=== PATIENT | female | born 1970 | race Caucasian/White ===

== ENCOUNTER 2019-12-13 08:29 | Emergency (ER) | payer OTHER, SELFPAY ==
[2019-12-13 08:30] VITALS: BP 148/101; PULSE 75; RESP 18; TEMP 36.1; O2SAT 99; BMI 26.9
--- NOTE | 2019-12-13 08:36 | ED.VIS.GEN ---
History of Present Illness Chief Complaint: Other, Pain/Inj Past Medical History - Allergies and Home Meds Allergies/Adverse Reactions: Allergies Penicillins Allergy (Verified 12/13/19 08:32) Rash prochlorperazine edisylate [From Compazine] Allergy (Verified 12/13/19 08:32) Anaphylaxis prochlorperazine maleate [From Compazine] Allergy (Verified 12/13/19 08:32) Anaphylaxis Primary Care Physician: Shelby Saenz DO [Primary Care Provider] - Smoking Status: Never smoker Physical Exam Vital Signs/Narrative: Vital Signs Temp Pulse Resp BP Pulse Ox 12/13/19 08:30 97 F L 75 18 148/101 H 99 ED Disposition - Plan for ED Patient: Referrals: Shelby Saenz DO [Primary Care Provider] -
--- NOTE | 2019-12-13 08:42 | EKG12_ITS ---
Test Reason : DYSRHYTHMIA Blood Pressure : / mmHG Vent. Rate : 075 BPM Atrial Rate : 075 BPM P-R Int : 142 ms QRS Dur : 084 ms QT Int : 362 ms P-R-T Axes : 076 035 045 degrees QTc Int : 404 ms Normal sinus rhythm Nonspecific T wave abnormality Abnormal ECG Confirmed by JORDANA JOHNSON, JESSICA ([id number]), editor in chief JOSE JOE ([id number]) on 12/16/2019 8:23:03 AM Referred By: [email or web address] Confirmed By:JESSICA SILVEIRA MD
[2019-12-13 08:55] VITALS: BP 117/58; PULSE 74; RESP 18; O2SAT 100
--- NOTE | 2019-12-13 09:00 | RAD_ITS ---
STUDY: X-RAY CHEST REASON FOR EXAM: Female, 49 years old. EPIGASTRIC PAIN AND BURNING SENSATION IN CHEST. STATES HAS BEEN FEELING THIS WAY FOR MONTHS, BUT WORSE THE LAST TWO DAYS TECHNIQUE: Single AP portable view of the chest. COMPARISON: None. FINDINGS: EKG electrodes are seen. The lungs are clear and expanded. There is no demonstrated pleural abnormality. Normal size heart. Normal mediastinum and ania. Normal visualized pulmonary arteries. Normal visualized aortic arch and descending thoracic aorta. Normal visualized thoracic spine. Normal visualized ribs, clavicles, and shoulders. There is no demonstrated abnormality of the visualized soft tissue structures of the upper abdomen. RAD/Chest 1 View (Portable) IMPRESSION: Normal x-ray examination of the chest. Electronically Signed: Finn Guardado, at 9:30 EDT , Service support ,
--- NOTE | 2019-12-13 09:00 | NURSING ---
PT DID NOT HAVE OLD EKG
[2019-12-13 09:09] LABS: Absolute Lymphocyte Count 0.63 X10^3/uL (0.83-4.51); Absolute Neutrophil Count 3.9 X10^3/uL (2.0-7.7); Basophil# 0.01 X10^3/uL; Basophil% 0.2 % (0-1); Eosinophil# 0.21 X10^3/uL; Hematocrit 43.8 % (37-47); Hemoglobin 15.2 g/dL (12.0-15.0); Lymphocyte # 0.63 X10^3/ul (4.0); Mean Corp Hgb Conc 34.7 g/dL (32-36); Mean Corpuscular Hgb 32.1 pg (27.0-32.0); Mean Corpuscular Volume 92.4 fL (81-99); Mean Platelet Vol. 10.5 fl (6.2-12.0); Monocyte# 0.42 X10^3/uL; NRBC Flagged by Analyzer 0 % (0-5); Neutrophil # 3.94 X10^3/uL (2.7-7.7); Neutrophil % 75.4 % (47-70); Platelet Count 180 K/mm3 (150-450); RBC Distribution Width CV 11.5 % (11.6-14.6); Red Blood Count 4.74 M/mm3 (4.2-5.4); White Blood Count 5.2 K/mm3 (4.4-11.0)
[2019-12-13 09:24] LABS: AST(SGOT) 15 U/L (15-37); Alanine Aminotransfer ALT/SGPT 22 U/L (13-56); Albumin, Serum 3.7 g/dL (3.2-5.0); Alkaline Phosphatase 90 U/L (45-117); Anion Gap 6 (5-15); BUN 17 mg/dL (7-18); BUN/Creat Ratio 17.1 RATIO (10-20); Bilirubin, Direct 0.13 mg/dL (0.00-0.30); Calcium,Total 8.8 mg/dL (8.5-10.1); Chloride 109 mmol/L (98-107); Creatinine, Serum 0.99 mg/dL (0.55-1.02); EST Glomerular Filtration Rate 63 mL/min (>60); Est Glom Filt Rate - Afr Amer 76 mL/min (>60); Estimated Creatinine Clearance 58.71 ml/min; Globulin 3.5 g/dL (2.2-4.2); Glucose 101 mg/dL (74-106); Lipase 142 U/L (73-393); Potassium 3.9 mmol/L (3.5-5.1); Protein, Total 7.2 g/dL (6.4-8.2); Sodium Level 141 mmol/L (136-145)
--- NOTE | 2019-12-13 09:24 | ED.VIS.GEN ---
History of Present Illness Chief Complaint: Other, Pain/Inj Informant: Patient Onset: - - 7 Current Severity: - - No pain Maximum Severity: Severe Narrative: 49-year-old female presents with epigastric burning which she feels radiating up into her esophagus. She states this is been ongoing for 7 months or so. It is intermittent in nature. Sometimes she states she feels she has pressure in the center of her chest. She does not have shortness of breath or diaphoresis. She believes she has undiagnosed GERD. She denies any cardiac history. DVT/PE risk factors. She is currently pain-free. She states that she had constant pain from midnight until 830. This did wax and wane in severity. Past Medical History - Allergies and Home Meds Allergies/Adverse Reactions: Allergies Penicillins Allergy (Verified 12/13/19 08:32) Rash prochlorperazine edisylate [From Compazine] Allergy (Verified 12/13/19 08:32) Anaphylaxis prochlorperazine maleate [From Compazine] Allergy (Verified 12/13/19 08:32) Anaphylaxis Primary Care Physician: Shelby Saenz DO [Primary Care Provider] - Past Medical History: None Lives: Alone Smoking Status: Never smoker Alcohol: None Drugs: None Review of Systems General: Denies: Chills, Fever Eyes: Denies: Visual changes - left, Blurred vision - left Cardiovascular: Reports: Chest pain. Denies: Palpitations, Heart racing Respiratory: Denies: Dyspnea, Cough, Sputum, Dyspnea on exertion Gastrointestinal: Reports: Nausea, - - Epigastric pain Genitourinary: Denies: Dysuria Musculoskeletal: Denies: Myalgias, Arthralgias Skin: Denies: Rash Neurological: Denies: Headache Psych: Denies: Depression, Anxiety Physical Exam Vital Signs/Narrative: Vital Signs Temp Pulse Resp BP Pulse Ox 12/13/19 08:55 74 18 117/58 L 100 12/13/19 08:30 97 F L 75 18 148/101 H 99 Inital Vital Signs reviewed: Yes General: Well nourished, Well developed, No Acute Distress Head: Normocephalic, Atraumatic Eyes: Perrl, EOMI ENT: Moist mucous membranes Neck: Supple, No lymphadenopathy Cardiovascular: Regular rate, Regular rhythm Respiratory: No distress, CTA bilaterally, Chest nontender Abdomen: Soft, Nondistended, - - Mild epigastric tenderness to palpation. Back: Negative for: Nontender Extremities: Negative for: Nontender, No edema, Calf Tenderness Skin: Normal color Neurological: Alert, Oriented x3 Psychological: Normal affect Diagnostic/Tx/Re-eval Chest X-Ray - ED: 1 View, Read by Radiologist - Rhythm Strip Rhythm Strip: Sinus Rhythm Rate: 75 - KS interval 142 ms, QRS duration 84 msQTc 404 ms - Medical Decision Making She presents with epigastric pain which she feels is GERD. Is been constant for the last 8-1/2 hours. EKG is sinus rhythm. Troponin is negative. Chest x-ray is normal. Not believe this is cardiac in nature. I have low suspicion for PE. Patient's vital signs are stable and she is afebrile. She will be discharged home with follow-up with her PCP. ED Disposition - Plan for ED Patient: Disposition: Home or Assisted Living Diagnosis: GERD with esophagitis, Chest pain due to GERD Instructions: ED Chest Pain Atypical Unkn Cause Prescriptions: Famotidine [Pepcid] 20 mg PO BID #28 tab Prescription Printed Referrals: Shelby Saenz DO [Primary Care Provider] -
[2019-12-13 09:44] VITALS: BP 122/62; PULSE 69; RESP 18; O2SAT 100
[2019-12-13 10:41] VITALS: BP 124/75; PULSE 70; RESP 18; O2SAT 100
== END 2019-12-13 10:42 | disposition home or self-care (01) ==
LOC: ED 09:18
PROVIDERS: Emergency Provider Student in an Organized Health Care Education/Training Program; PCP Internal Medicine
DX: K21.0 Gastro-esophageal reflux disease with esophagitis (principal); R07.9 Chest pain, unspecified
CPT/HCPCS: 71045; 80048; 80076; 83690; 84484; 85025; 93005; 99284; A4216

== ENCOUNTER 2021-08-09 16:39 | Outpatient (CLI) | payer OTHER, SELFPAY ==
--- NOTE | 2021-08-09 16:45 | RAD_ITS ---
EXAM: XR LEFT HAND COMPLETE, 3 OR MORE VIEWS : 1970 CLINICAL INDICATION: PAIN TECHNIQUE: Frontal, lateral and oblique views of the left hand. This report was created using [employer] report generation technology. COMPARISON: None. FINDINGS: BONES/JOINTS: Unremarkable. No acute fracture. No subluxation. Normal alignment. Preservation of the joint space. No sclerotic or destructive changes observed. SOFT TISSUES: Unremarkable. No soft tissue swelling or gas. No radiopaque foreign body. RAD/Hand Min 3 Views IMPRESSION: Negative left hand x-rays. at 0242 Reported and signed by: Sid Garcia MD Electronically Signed: Sid Garcia MD at 2:41 EST ,
== END 2021-08-09 23:59 | disposition home or self-care (01) ==
LOC: MTRAD 16:43
PROVIDERS: PCP Internal Medicine; Referring Provider Internal Medicine; Visit Provider Internal Medicine
DX: M79.642 Pain in left hand (principal)
CPT/HCPCS: 73130

== ENCOUNTER 2022-07-19 09:23 | Emergency (ER) | payer OTHER, SELFPAY ==
[2022-07-19 09:23] VITALS: BP 141/94; PULSE 75; RESP 14; TEMP 36.5; O2SAT 100; BMI 26.2
[2022-07-19 09:41] VITALS: BP 145/82
--- NOTE | 2022-07-19 09:42 | EKG12_ITS ---
Test Reason : HIGH BP Blood Pressure : / mmHG Vent. Rate : 061 BPM Atrial Rate : 061 BPM P-R Int : 146 ms QRS Dur : 086 ms QT Int : 424 ms P-R-T Axes : 054 010 029 degrees QTc Int : 426 ms Normal sinus rhythm Normal ECG Confirmed by JORDANA JOHNSON, JSESICA ([id number]), graphics editor JOSE JOE ([id number]) on 07/21/2022 11:22:00 AM Referred By: Confirmed By:JESSICA SILVEIRA MD
--- NOTE | 2022-07-19 09:42 | CT_ITS ---
STUDY: CT BRAIN WITHOUT CONTRAST REASON FOR EXAM: Female, 52 years old. Dizziness RADIATION DOSAGE (If Supplied By Facility): CTDIvol = ( 44.99 ) mGy, DLP = ( 796.11 ) mGycm TECHNIQUE: Transaxial CT imaging of the brain was performed without administration of intravenous contrast material. Individualized dose optimization techniques were used for this CT. COMPARISON: Comparison is made with prior examination 08/02/2012. FINDINGS: Normal soft tissue structures. Normal calvarium. Normal size ventricles and extra-axial spaces for the patient''s age. Normal white matter tracts of the cerebral hemispheres. Normal basal ganglia and thalami. Normal brainstem. Normal cerebellum. There is no intracranial hemorrhage. There are no findings of an acute ischemic infarction. There is partial opacification of the left maxillary sinus. CT/Brain/Head without Contrast IMPRESSION: Normal unenhanced CT scan of the brain. Partial opacification of the left maxillary sinus. Electronically Signed: Finn Guardado MD at 10:17 EST ,
--- NOTE | 2022-07-19 09:42 | RAD_ITS ---
STUDY: X-RAY CHEST REASON FOR EXAM: Female, 52 years old. Shortness of Breath TECHNIQUE: Single AP portable view of the chest. COMPARISON: Comparison is made with prior study 12/13/2019. FINDINGS: EKG electrodes are seen. The lungs are clear and expanded. There is no demonstrated pleural abnormality. Normal size heart. Normal mediastinum and ania. Normal visualized pulmonary arteries. Normal visualized aortic arch and descending thoracic aorta. Normal visualized thoracic spine. Normal visualized ribs, clavicles, and shoulders. There is no demonstrated abnormality of the visualized soft tissue structures of the upper abdomen. RAD/Chest 1 View (Portable) IMPRESSION: Normal x-ray examination of the chest. Electronically Signed: Finn Guardado MD at 11:07 EST ,
--- NOTE | 2022-07-19 09:43 | EDS_ITS ---
HPI History of Present Illness Chief Complaint: Hypertension Narrative Narrative: 52-year-old female who denies significant past medical history presents with reported elevated blood pressure, and feeling dizzy, and lightheaded. 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 She felt almost confused but was able to carry on a conversation without difficulty. She states she was able to complete her route, and afterwards, she felt very dizzy. She denies that the room was necessarily spinning but she felt off. She states she stood up to get a wheelchair, and then felt lightheaded. She denies any chest pain but did have mild shortness of breath. No headache with this. No paresthesias. She states that she had a sit down because she felt as if she were going to pass out, and she had an RN take her blood pressure and it was reportedly elevated in the 180 systolically. She does not have past medical history of hypertension and does not take any medications. Currently, she feels improved, no longer feels lightheaded or dizzy but feels weak. No recent nausea or vomiting, no diarrhea, no dysuria or hematuria. She states that it was recommended that she go to the emergency department and be evaluated. [facility] Home Medications famotidine 20 mg tablet 20 mg PO BID #28 tabs 12/13/19 [Rx Last Taken Unknown] Allergy/AdvReac Type Severity Reaction Status Date / Time Penicillins Allergy Rash Verified 07/19/22 09:25 prochlorperazine edisylate Allergy Anaphylaxis Verified 07/19/22 09:25 [From Compazine] prochlorperazine maleate Allergy Anaphylaxis Verified 07/19/22 09:25 [From Compazine] Surgical History History of cholecystectomy History of D&C History of tonsillectomy Social History Smoking Status: Never smoker alcohol intake: never ROS ROS ED ROS Narrative Constitutional: No fever, no chills. Reported elevated blood pressure. HEENT: No sore throat. No neck pain. No loss of vision. No rhinorrhea. Cardiovascular: No chest pain. No palpitations. No pedal edema. Respiratory: No cough, transient shortness of breath. Abdominal: No abdominal pain. No nausea. No vomiting. Genitourinary: No dysuria. No hematuria. Musculoskeletal: No myalgias. No arthralgias. Neurologic: No headaches. Positive dizziness. Positive lightheadedness. Confused-resolved Skin: No rash. No change in color. Psychiatric: No depression. No anxiety. EXAM Physical Exam Narrative Exam Narrative: Afebrile. Vital signs noted. HEENT: Normocephalic. Atraumatic. PERRL, EOMI. Neck soft and supple. No point tenderness or step off. Cardiovascular: Regular rate and rhythm. No murmurs, rubs, or gallops appreciated. Respiratory: No tachypnea. Lungs clear to auscultation bilaterally. Gastrointestinal: Abdomen soft, nontender, with normoactive bowel sounds. No rebound or guarding. Neurological: Awake. Alert. Nonfocal, nonlateralizing. NIH stroke scale is 0. DTRs equal and symmetric. Skin: No rash. Normal color. No pallor. Musculoskeletal: No pedal edema. Full range of motion extremities. Const Vital Signs: 07/19/22 09:23 07/19/22 09:32 07/19/22 09:41 Temperature 97.7 F L Temperature Source Temporal Pulse Rate 75 Pulse Rate [Lying] Pulse Rate [Sitting (for 1 minute prior to obtaining)] Pulse Rate [Standing (for 1 minute prior to obtaining)] Respiratory Rate 14 Respiratory Pattern Normal Blood Pressure 141/94 H 145/82 H Blood Pressure [Lying] Blood Pressure [Sitting (for 1 minute prior to obtaining)] Blood Pressure [Standing (for 1 minute prior to obtaining)] Blood Pressure Mean 109 103 Blood Pressure Mean [Lying] Blood Pressure Mean [Sitting (for 1 minute prior to obtaining)] Blood Pressure Mean [Standing (for 1 minute prior to obtaining)] Pulse Ox 100 Oxygen Delivery Method Room Air 07/19/22 09:45 Temperature Temperature Source Pulse Rate Pulse Rate [Lying] 72 Pulse Rate [Sitting (for 1 minute prior to obtaining)] 68 Pulse Rate [Standing (for 1 minute prior to obtaining)] 72 Respiratory Rate Respiratory Pattern Blood Pressure Blood Pressure [Lying] 137/66 H Blood Pressure [Sitting (for 1 minute prior to obtaining)] 145/82 H Blood Pressure [Standing (for 1 minute prior to obtaining)] 130/76 H Blood Pressure Mean Blood Pressure Mean [Lying] 89 Blood Pressure Mean [Sitting (for 1 minute prior to obtaining)] 103 Blood Pressure Mean [Standing (for 1 minute prior to obtaining)] 94 Pulse Ox Oxygen Delivery Method MDM MDM MDM Narrative Medical decision making narrative: Patient current blood pressure is 141/94. Pulse ox is 100% on room air. She is not tachycardic. Her NIH stroke scale is 0. I do not feel that stroke team is indicated because she is currently asymptomatic except for the feeling of weakness. Additionally, I do not feel that tPA is indicated because her symptoms have essentially resolved. Currently, she has slightly elevated blood pressure that is in the borderline range. I do not feel that any medication is needed to lower her blood pressure. Comprehensive work-up was pursued. This included orthostatics. She will be bolused IV fluids, normal saline 1 L intravenously. I will check a CBC, CMP, and urinalysis along with EKG, troponin, and chest x-ray. I do feel that CT imaging is indicated given her reported dizziness and elevated blood pressure in the 180s. I reviewed the patient's laboratory work, her CBC shows a normal white count of 7.3, hemoglobin normal at 14.3, hematocrit 43.6, urinalysis is negative for infection or ketones. [id number] glucose normal at 96. CMP obtained and reviewed and the only laboratory value that is abnormal is a low AST of 14. Orthostatics were obtained and reviewed in the nursing notes which are negative for significant increase in her pulse or drop in her systolic blood pressure. Currently, her systolic blood pressure is 129. CT of the brain was obtained, and on my individual independent interpretation, see no evidence of acute hemorrhage. And I reviewed the radiology report which shows no acute process. EKG was obtained and interpreted by myself which demonstrates normal sinus r hythm at 61 bpm without ectopy or acute ST changes. No STEMI. Chest x-ray also interpreted by myself in 1 view shows no acute process, no pneumonia or pneumothorax. I reviewed the radiology report and there is no evidence of acute process. At this point in time, her blood pressure has essentially normalized, and I am unsure as to the cause of her dizziness/lightheadedness and near syncope, but I do feel that she can be discharged safely home with follow-up. She was told to keep track of her blood pressure and follow-up with her primary care physician regarding her elevated blood pressure. I do not feel that antihypertensive medication needs to be started currently. Return instructions were reviewed. Disposition is discharged home in stable condition. Patient is agreeable with the plan and feels well. Lab Data Attestation: I reviewed the patient's lab results. Labs: Laboratory Results - last 24 hr 07/19/22 07/19/22 07/19/22 09:45 09:53 09:55 WBC 7.3 RBC 4.55 Hgb 14.3 Hct 43.6 MCV 95.8 MCH 31.4 MCHC 32.8 RDW Std Deviation 43.8 RDW Coeff of Dodie 12.4 Plt Count 211 MPV 10.4 Immature Gran % (Auto) 0.300 Neut % (Auto) 68.6 Lymph % (Auto) 20.3 [place] % (Auto) 6.1 Eos % (Auto) 4.0 Baso % (Auto) 0.7 Absolute Neuts (auto) 5.0 Absolute Lymphs (auto) 1.49 Nucleated RBC % 0 Sodium Potassium Chloride Carbon Dioxide Anion Gap BUN Creatinine Estim Creat Clear Calc Est GFR (MDRD) Af Amer Est GFR (MDRD) Non-Af BUN/Creatinine Ratio Glucose Calcium Total Bilirubin AST ALT Alkaline Phosphatase Troponin I High Sens Total Protein Albumin Globulin Albumin/Globulin Ratio Urine Color Yellow Urine Clarity Clear Urine pH 7.0 Ur Specific [place] 1.005 Urine Protein Negative Urine Glucose (UA) Normal Urine Ketones Negative Urine Occult Blood Negative Urine Nitrite Negative Urine Bilirubin Negative Urine Urobilinogen Normal Ur Leukocyte Esterase Negative Urine RBC 0 SEEN Urine WBC 0 SEEN Ur Squamous Epith Cells 0 SEEN Urine Bacteria 0 SEEN Urine Mucus 0 SEEN POC Glucose 96 07/19/22 09:55 WBC RBC Hgb Hct MCV MCH MCHC RDW Std Deviation RDW Coeff of Dodie Plt Count MPV Immature Gran % (Auto) Neut % (Auto) Lymph % (Auto) [place] % (Auto) Eos % (Auto) Baso % (Auto) Absolute Neuts (auto) Absolute Lymphs (auto) Nucleated RBC % Sodium 140 Potassium 4.2 Chloride 105 Carbon Dioxide 29.0 Anion Gap 6 BUN 15 Creatinine 0.86 Estim Creat Clear Calc 65.33 Est GFR (MDRD) Af Amer 89 Est GFR (MDRD) Non-Af 74 BUN/Creatinine Ratio 17.5 Glucose 105 Calcium 9.3 Total Bilirubin 0.50 AST 14 L ALT 20 Alkaline Phosphatase 90 Troponin I High Sens 4 Total Protein 7.8 Albumin 4.0 Globulin 3.8 Albumin/Globulin Ratio 1.1 Urine Color Urine Clarity Urine pH Ur Specific [place] Urine Protein Urine Glucose (UA) Urine Ketones Urine Occult Blood Urine Nitrite Urine Bilirubin Urine Urobilinogen Ur Leukocyte Esterase Urine RBC Urine WBC Ur Squamous Epith Cells Urine Bacteria Urine Mucus POC Glucose Radiography Diagnostic Testing: Clinical Impression(s) from Imaging Studies Brain CT 07/19/22 09:42 IMPRESSION: Normal unenhanced CT scan of the brain. Partial opacification of the left maxillary sinus. Electronically Signed: Finn Guardado MD at 10:17 EST , Chest X-Ray 07/19/22 09:42 IMPRESSION: Normal x-ray examination of the chest. Electronically Signed: Finn Guardado MD at 11:07 EST , Discharge Plan Triage Chief Complaint: Hypertension ED Provider: Geoff Gaspar Dx/Rx/DC Orders Clinical Impression: Elevated blood pressure reading without diagnosis of hypertension, Light- headed, Dizziness Instructions: ED Dizziness, Uncertain Cause, ED Hypertension, To Be Confirmed Prescriptions: No Action famotidine 20 MG tablet 20 mg PO BID Qty: 28 0RF Primary Care Provider: Shelby Saenz Referrals: Shelby Saenz DO [Primary Care Provider] - 1-2 Days if not improving Disposition Disposition: Home, Self Care
[2022-07-19 09:45] VITALS: BP 130/76; BP 137/66; BP 145/82; PULSE 68; PULSE 72
[2022-07-19 09:54] LABS: Bacteria 0 SEEN /hpf (None Seen); Mucous, Urine 0 SEEN /hpf (<or=2+); Red Blood Cells-Urine 0 SEEN /hpf (0-5); Squamous Epithelial Cells - UA 0 SEEN /hpf (5-10); White Blood Cells 0 SEEN /hpf (0-5)
[2022-07-19 10:00] LABS: Glucose, Dipstick Normal (Normal); Ketone-Dipstick Negative (Negative); Leukocyte Esterase-Dipstick Negative /ul (Negative); Nitrite-Dipstick Negative (Negative); Occult Blood-Urine Negative /ul (Negative); Protein-Dipstick Negative (Negative); Specific Gravity, Urine 1.005 (1.002-1.030); Urine Bilirubin Dipstick Negative (Negative); Urine Urobilinogen Normal (Normal)
[2022-07-19 10:07] LABS: Absolute Lymphocyte Count 1.49 X10^3/uL (0.83-4.51); Basophil# 0.05 X10^3/uL; Basophil% 0.7 % (0-1); Eosinophil# 0.29 X10^3/uL; Hematocrit 43.6 % (37-47); Hemoglobin 14.3 g/dL (12.0-15.0); Lymphocyte # 1.49 X10^3/ul (0.83-4.51); Lymphocyte % 20.3 % (19-41); Mean Corp Hgb Conc 32.8 g/dL (32-36); Mean Corpuscular Hgb 31.4 pg (27.0-32.0); Mean Corpuscular Volume 95.8 fL (81-99); Mean Platelet Vol. 10.4 fl (6.2-12.0); Monocyte# 0.45 X10^3/uL; Monocyte% 6.1 % (0-10); NRBC Flagged by Analyzer 0 % (0-5); Neutrophil # 5.04 X10^3/uL (2.7-7.7); Neutrophil % 68.6 % (47-70); Platelet Count 211 K/mm3 (150-450); RBC Distribution Width CV 12.4 % (11.6-14.6); RBC Distribution Width SD 43.8 fl (35.1-43.9); Red Blood Count 4.55 M/mm3 (4.2-5.4); White Blood Count 7.3 K/mm3 (4.4-11.0)
[2022-07-19 10:12] LABS: Color, Urine Yellow (Yellow); Urine Clarity Clear (Clear)
[2022-07-19 10:21] LABS: Bedside Glucose 96 mg/dL (74-106)
[2022-07-19] MEDS: 0.9% Normal Saline 1,000 ML 1000 ML IV (10:26)
[2022-07-19 10:29] LABS: ALB/GLOB Ratio 1.1 RATIO (0.9-2.4); AST(SGOT) 14 U/L (15-37); Alanine Aminotransfer ALT/SGPT 20 U/L (13-56); Alkaline Phosphatase 90 U/L (45-117); Anion Gap 6 (5-15); BUN 15 mg/dL (7-18); BUN/Creat Ratio 17.5 RATIO (10-20); Calcium,Total 9.3 mg/dL (8.5-10.1); Chloride 105 mmol/L (98-107); Creatinine, Serum 0.86 mg/dL (0.55-1.02); EST Glomerular Filtration Rate 74 mL/min (>60); Est Glom Filt Rate - Afr Amer 89 mL/min (>60); Estimated Creatinine Clearance 65.33 ml/min; Globulin 3.8 g/dL (2.2-4.2); Glucose 105 mg/dL (74-106); Potassium 4.2 mmol/L (3.5-5.1); Protein, Total 7.8 g/dL (6.4-8.2); Sodium Level 140 mmol/L (136-145); Troponin-I HS 4 pg/mL (3.0-54.0)
[2022-07-19 11:20] VITALS: BP 129/73; PULSE 78; RESP 18; TEMP 36.6; O2SAT 99
== END 2022-07-19 11:21 | disposition home or self-care (01) ==
PROVIDERS: Emergency Provider Emergency Medicine; PCP Internal Medicine; Visit Provider Emergency Medicine
DX: R03.0 Elevated blood-pressure reading, without diagnosis of hypertension (principal); R42 Dizziness and giddiness; R06.02 Shortness of breath; R53.1 Weakness; R55 Syncope and collapse
CPT/HCPCS: 70450; 71045; 80053; 81001; 82962; 84484; 85025; 93005; 96360; 99285; J7030

== ENCOUNTER → 2023-03-04 | Outpatient (CLI) | payer OTHER, SELFPAY ==
[2023-03-04 09:57] LABS: Cholesterol 225 mg/dL (200); High Density Lipoprotein 66 mg/dL; Thyroid Stim Hormone (TSH) 3.05 uIU/mL (0.358-3.74); Triglycerides 105 mg/dL; Very Low Density Lipoprotein 21 mg/dL (5-40)
[2023-03-06 09:51] LABS: Vitamin D,25 Hydroxy 28.8 ng/mL
== END | disposition home or self-care (01) ==
LOC: LAB 08:28
PROVIDERS: PCP Internal Medicine; Referring Provider Internal Medicine; Visit Provider Internal Medicine
DX: E55.9 Vitamin D deficiency, unspecified (principal); R63.5 Abnormal weight gain; Z13.220 Encounter for screening for lipoid disorders
CPT/HCPCS: 36415; 80061; 82306; 84443

== ENCOUNTER → 2024-12-11 | Outpatient (CLI) | payer OTHER, SELFPAY | END | disposition home or self-care (01) | LOC: LABSPEC 09:57 | PROVIDERS: PCP Nurse Practitioner Family; Visit Provider Nurse Practitioner Family | DX: Z12.4 Encounter for screening for malignant neoplasm of cervix (principal) | CPT/HCPCS: 88175; G0145 ==

== ENCOUNTER → 2024-12-25 | Outpatient (CLI) | payer OTHER, SELFPAY ==
--- NOTE | 2024-12-25 08:29 | BI_ITS ---
EXAM: SCRN MAMM (CAD)W/FELICIA BILAT DATE: 12/25/2024 CLINICAL HISTORY: F, Age 54 y/o , SCREENING TECHNIQUE: SCRN MAMM (CAD)W/FELICIA BILAT COMPARISON: No priors available. FINDINGS: TISSUE DENSITY: The breasts are heterogeneously dense, which may obscure small masses. The mammogram demonstrates that the patient has dense breasts. Supplemental screening with whole breast ultrasound or MRI may be considered for further evaluation. Bilateral Breast Mammographic Findings: There is a mass in the upper central right breast at middle depth. No significant masses, calcifications or other abnormalities are identified in the left breast. BI/SCRN MAMM (CAD)W/FELICIA BILAT IMPRESSION: Mass in the upper central right breast at middle depth requires further evaluat ion. Recommend diagnostic ultrasound of the right breast. OVERALL FINAL ASSESSMENT BI-RADS 0: INCOMPLETE - NEED ADDITIONAL IMAGING EVALUATION. RECOMMENDATION: Ultrasound Recommended A letter with findings and recommendations will be mailed to the patient. Reading Location: [id number]
== END | disposition home or self-care (01) ==
LOC: OPBI 08:28
PROVIDERS: PCP Nurse Practitioner Family; Referring Provider Nurse Practitioner Family; Visit Provider Nurse Practitioner Family
DX: Z12.31 Encounter for screening mammogram for malignant neoplasm of breast (principal)
CPT/HCPCS: 77063; 77067

== ENCOUNTER → 2024-12-26 | Outpatient (CLI) | payer OTHER, SELFPAY ==
--- NOTE | 2024-12-26 08:24 | US_ITS ---
PROCEDURE: BREAST LIMITED UNILATERAL 12/26/2024 REASON FOR EXAM: 54-year-old female presents for follow-up of the right breast findings seen on examination 12/25/2024. Family history of breast cancer in a paternal grandmother at age 40 COMPARISON: Mammogram 12/25/2024. TECHNIQUE: BREAST LIMITED UNILATERAL FINDINGS: Ultrasound performed of the upper central right breast. Follow-up examination performed for the right breast mass seen on examination of 12/25/2024. On the present examination, there is round hypoechoic mass in the retroareolar right breast, measuring 0.8 x 0.7 x 0.6 cm. There is mild internal vascular flow. This is the correlate for the mammographic finding. US/Breast Limited Unilateral IMPRESSION: Probably benign right breast mass in the retroareolar region. Recommend short interval six-month diagnostic ultrasound of the right breast. BI-RADS 3: PROBABLY BENIGN. RECOMMENDATION: 6 Month Follow-up Reading Location: [id number]
== END | disposition home or self-care (01) ==
LOC: OPUS 08:20
PROVIDERS: PCP Nurse Practitioner Family; Referring Provider Nurse Practitioner Family; Visit Provider Nurse Practitioner Family
DX: N63.15 Unspecified lump in the right breast, overlapping quadrants (principal)
CPT/HCPCS: 76642

== ENCOUNTER 2025-01-03 06:32 | Day surgery (SDC) | payer OTHER, SELFPAY ==
[2025-01-03] VITALS (8 sets, daily range): BP systolic 86–106; BP diastolic 50–71; PULSE 54–60; RESP 16–20; TEMP 36.5–36.6; O2SAT 98–100; BMI 26.2
--- OUTSIDE RECORDS SUMMARY | 2025-01-03 06:35 | XMS RPT_ITS | CCD ---
Author Organization [facility] CliniSyny Care Team Providers Care Audio Installer Name Role Phone Shelby Saenz Unavailable Gravius, Ruby Unavailable Unavailable Slarb, Lilia Unavailable Unavailable Unavailable Unavailable [facility] Admitting Unava ilable P[facility]ERENE, [facility] Attending Unava ilable POMERENE, [facility] Primary Care Unava ilable NO, DOCTOR ON Consulting Unavailable DAJUAN CHRISTIANSON Attending Unavailable DAJUAN CHRISTIANSON Primary Care Unavailable MEGHANDAJUAN MEREDITH Admitting Unavailable MEGHANDAJUAN MEREDITH Attending Unavailable MEGHANDAJUAN Primary Care Unavailable MEGHAN, DAJUAN Du Admitting Unavailable Dany DO, Shelby Unavailable Slarb BUSINESS TRAVEL CONSULTANT, Lilia Unavailable Unavailable Gravius SUPERIOR COURT CLERK, Ruby Unavailable Unavailable Unavailable Unavailable Carrol Vance Unavailable Carrol Vance MD Unavailable Dany DO Shelby Unavailable Yohana KUMAR, Kayela Unavailable Unavailable Dany DO Shelby Attending Unavailable Dany DO, Shelby Consulting Unavailable Brandi BUSINESS TRAVEL CONSULTANT, Mandi Unavailable Unavailable Adenike Cooper CNP Unavailable Andrae BUSINESS TRAVEL CONSULTANT, Meir Unavailable Unavailable Esmer SUPERIOR COURT CLERK, Roberta Unavailable Unavailable Puneet MAYNALEJANDRA Unavailable Unavailable New TRANSMISSION INSPECTOR-C, Jany Primary Care Provider New TRANSMISSION INSPECTOR-C, Jany Attending Provider New TRANSMISSION INSPECTOR-C, Jany Referring Provider Jany Wolff Attending Unavailable Jany Wolff Primary Care Unavailable Jany Wolff Attending Unavailable Jany Wolff Referring Unavailable Jany Wolff Primary Care Unavailable Carmine Mac Attending Unavailable Jany Wolff Primary Care Unavailable Jany Wolff Attending Unavailable Jany Wolff Referring Unavailable Jany Wolff Primary Care Unavailable Allergies Allergy Classification Reported Allergen(s) Allergy Type Date of Onset Reaction(s) Facility (20 sources) Penicillins; Translations: [Penicillins] Allergy to substance (finding) 07-19-19 Rash [facility] Work Phone: Comment on above: Rash (20 sources) Prochlorperazine Drug Allergy 09-01-19 [facility] Work Phone: Comment on above: spasms above neck (20 sources) venlafaxine Drug Allergy [facility] Work Phone: Comment on above: neuro s/s (2 sources) Penicillins Drug allergy (disorder) [facility] Repository (2 sources) Prochlorperazine Drug Allergy [facility] Repository (1 source) Penicillin G Drug Allergy 09-01-19 [facility] Work Phone: (5 sources) Prochlorperazine; Translations: [prochlorperazine maleate] Drug Allergy 07-19-19 Anaphylaxis [facility] (5 sources) prochlorperazine edisylate; Translations: [prochlorperazine edisylate] Allergy to substance 07-19-19 Anaphylaxis [facility] Medications Current Medications Medication Drug Class(es) Dates Sig (Normalized) Sig (Original) Allen (Nk) (2 sources) Start: 12-31-2024 Allen (Nk) A ctive December 31, 2024 12:00am Completed/Discontinued Medications Medication Drug Class(es) Dates Sig (Normalized) Sig (Original) acetaminophen 325 mg / oxyCODONE hydrochloride 5 mg oral tablet (4 sources) Opioid Agonist Start: 03-26-2015 End: 07-20-2017 Oxycodone-Acetamino phen 1 TABLET tablet Discontinued 1 - 2 {tbl} PO EVERY 4 HOURS NEEDED as needed for Pain 30 0 March 26, 2015 12:00am July 20, 2017 11:49am Start: 03-26-2015 End: 07-20-2017 take 1 tablet by mouth every four hours as needed Oxycodone-Acetaminophen Discontinued 1 - 2 TABLET PO EVERY 4 HOURS NEEDED March 25, 2015 11:00pm July 20, 2017 10:49am [id number] 200 actuat albuterol 0.09 mg/actuat metered dose inhaler (20 sources) beta2-Adrenergic Agonist Start: 09-15-2014 End: 07-11-2016 take 2 puff(s) by inhalation three times daily Proventil HFA 108 (90 Base) MCG/ACT Inhalation Aerosol Solution 2 (two) Puff Puff tid for 0 days Quantity: 1 {Inhaler} Refills: 0 Ordered: 11-Jul-2016 Lilia Alexandre LPN Start : 15-Sep-2014 End : 11-Jul-2016 Discontinued Start: 09-15-2014 End: 07-11-2016 take 2 puff(s) by inhalation three times daily Proventil HFA 108 (90 Base) MCG/ACT Inhalation Aerosol Solution 2 (two) Puff Puff tid for 0 days Quantity: 1 {Inhaler} Refills: 0 Ordered: 11-Jul-2016 Lilia Alexandre LPN Start : 15-Sep-2014 End : 11-Jul-2016 Discontinued amoxicillin 875 mg / clavulanate 125 mg oral tablet (20 sources) Penicillin-class Antibacterial Start: 11-12-2010 End: 11-22-2010 take 1 tablet by mouth twice daily AUGMENTIN, 875-125MG (Oral Tablet) 1 Tablet Twice daily for 10 days Quantity: 20 {Tablet} Refills: 0 Ordered: 12-Nov-2010 Jenni Otoole Start : 12-Nov-2010 End : 22-Nov-2010 Inactive azithromycin 250 mg oral tablet (20 sources) Macrolide Antimicrobial Start: 10-17-2022 End: 12-31-2024 take 2-5 tablets by mouth once daily Azithromycin (Zithromax Z-Greg) 250 mg tablet Discontinued 0 PO .COMPLEX 6 0 October 17, 2022 12:00am December 31, 2024 11:00am take 500 mg today (day 1), then 250 mg for 4 days (days 2-5) PO Start: 08-23-2019 End: 03-26-2021 take 1 tablet by mouth once daily Zithromax Z-Greg 250 MG Oral Tablet tad Tablet qd for 0 days Quantity: 1 {Package} Refills: 0 Ordered: 26-Mar-2021 Rosa Elena Pickard MA Start : 23-Aug-2019 End : 26-Mar-2021 Inactive Start: 09-15-2014 End: 02-25-2016 Zithromax Z-Greg 250 MG Oral Tablet 1 (one) Tablet TAD for 0 days Quantity: 1 {Package} Refills: 0 Ordered: 25-Feb-2016 Wendy Hernández RN Start : 15-Sep-2014 End : 25-Feb-2016 Inactive B Complex B-12 Oral Tablet (20 sources) B Complex B-12 O ral Tablet Inactive B Complex B-12 O ral Tablet Active benzonatate 100 mg oral capsule (20 sources) Non-narcotic Antitussive Start: 11-12-2010 End: 12-13-2011 take 1 capsule by mouth three times daily for cough TESSALON PERLES, 100MG (Oral Capsule) 1 Capsule tid for cough for 0 days Quantity: 30 {Capsule} Refills: 0 Ordered: 13-Dec-2011 Aspen Sandy LPN Start : 12-Nov-2010 End : 13-Dec-2011 Inactive cetirizine hydrochloride 5 mg oral tablet (20 sources) Histamine-1 Receptor Antagonist End: 05-04-2007 ZYRTEC, 5MG (Oral Tablet) When needed for 0 days Refills: 0 Ordered: 20-Aug-2007 Barbara Sheets End : 04-May-2007 Inactive ciprofloxacin 500 mg oral tablet (20 sources) Quinolone Antimicrobial Start: 02-25-2016 End: 03-06-2016 take 1 tablet by mouth twice daily Cipro 500 MG Oral Tablet 1 Tablet bid for 10 days Quantity: 20 {Tablet} Refills: 0 Ordered: 25-Feb-2016 Shelby Saenz DO, DO, Kathleen Start : 25-Feb-2016 End : 06-Mar-2016 Inactive clarithromycin 500 mg oral tablet (20 sources) Macrolide Antimicrobial Start: 07-11-2016 End: 07-21-2016 take 1 tablet by mouth twice daily Biaxin 500 MG Oral Tablet 1 Tablet bid for 10 days Quantity: 20 {Tablet} Refills: 0 Ordered: 11-Jul-2016 David Jimenez Start : 11-Jul-2016 End : 21-Jul-2016 Inactive Start: 08-20-2007 End: 09-24-2007 take 2 tablets by mouth once daily BIAXIN XL PAC, 500MG (Oral Tablet Extended Release 24 Hour) 2 (two) Tablet ER 24HR daily for 7 days Quantity: 14 {Tablet_ER_24HR} Refills: 0 Ordered: 20-Aug-2007 Jenni Otoole Start : 20-Aug-2007 End : 24-Sep-2007 Inactive Start: 08-20-2007 End: 09-24-2007 take 2 tablets by mouth once daily BIAXIN XL PAC, 500MG (Oral Tablet Extended Release 24 Hour) 2 (two) Tablet ER 24HR daily for 7 days Quantity: 14 {Tablet_ER_24HR} Refills: 0 Ordered: 20-Aug-2007 Jenni Otoole CNP Start : 20-Aug-2007 End : 24-Sep-2007 Inactive cyclobenzaprine hydrochloride 10 mg oral tablet (20 sources) Muscle Relaxant Start: 05-20-2008 End: 09-11-2008 take 1 tablet by mouth twice daily as needed FLEXERIL, 10MG (Oral Tablet) 1 (one) Tablet BID prn for 0 days Quantity: 30 {Tablet} Refills: 0 Ordered: 20-May-2008 Daiana Polk Start : 20-May-2008 End : 11-Sep-2008 Inactive 12 hr dextromethorphan polistirex 6 mg/ml extended release suspension (20 sources) Uncompetitive H-nrtlql-J-aspartat e Receptor Antagonist, Sigma-1 Agonist Start: 09-15-2014 End: 02-25-2016 Delsym 30 MG/5ML Oral Suspension Extended Release 1 (one) Liquid ER q12hr for 0 days Quantity: 1 {Box} Refills: 0 Ordered: 25-Feb-2016 Wendy Hernández RN Start : 15-Sep-2014 End : 25-Feb-2016 Inactive Start: 09-15-2014 End: 02-25-2016 Delsym 30 MG/5ML Oral Suspen jonah Extended Release 1 (one) Liquid ER q12hr for 0 days Quantity: 1 {Box} Refills: 0 Ordered: 25-Feb-2016 Wendy Hernández RN Start : 15-Sep-2014 End : 25-Feb-2016 Inactive doxycycline hyclate 100 mg oral capsule (4 sources) Tetracycline-class Drug Start: 07-20-2017 End: 07-30-2017 take 1 capsule by mouth twice daily Doxycycline Hyclate 100 mg capsule Discontinued 100 mg PO TWICE A DAY 20 10 0 July 20, 2017 1:00am July 29, 2017 1:00am July 30, 2017 1:07am 24 hr etodolac 400 mg extended release oral tablet (20 sources) Nonsteroidal Anti-inflammatory Drug Start: 05-20-2008 End: 09-11-2008 take 2 tablets by mouth once daily LODINE XL, 400MG (Oral Tablet Extended Release 24 Hour) 2 (two) Tablet ER 24HR Daily for 0 days Quantity: 30 {Tablet_ER_24HR} Refills: 0 Ordered: 20-May-2008 Daiana Polk Start : 20-May-2008 End : 11-Sep-2008 Inactive famotidine 40 mg oral tablet (20 sources) Histamine-2 Receptor Antagonist Start: 12-19-2022 take 1 tablet by mouth once daily Pepcid 40 mg oral tablet 1 (one) Tablet daily for 30 days Quantity: 60 {Tablet} Refills: 3 Ordered: 19-Dec-2022 Shelby Saenz DO, DO, Kathleen Start : 19-Dec-2022 Active Start: 06-29-2022 take 1 tablet by morenita th twice daily Pepcid 40 mg oral tablet 1 (one) Tablet two times daily for 30 days Quantity: 60 {Tablet} Refills: 3 Ordered: 29-Jun-2022 Shelby Saenz DO, DO, Kathleen Start : 29-Jun-2022 Active Start: 01-10-2022 take 1 tablet by morenita th twice daily Pepcid 40 MG Oral Tablet 1 (one) Tablet two times daily for 30 days Quantity: 60 {Tablet} Refills: 1 Ordered: 10-Jan-2022 Shelby Saenz DO, DO, Kathleen Start : 10-Jan-2022 Active Start: 09-01-2021 take 1 tablet by morenita th twice daily Pepcid 40 MG Oral Tablet 1 (one) Tablet two times daily for 30 days Quantity: 60 {Tablet} Refills: 1 Ordered: 01-Sep-2021 Ruby Kerr CMA Start : 01-Sep-2021 Active Start: 12-13-2019 End: 12-31-2024 take 1 tablet by mouth twice daily Famotidine 20 MG tablet Discontinued 20 mg PO TWICE A DAY 28 0 December 13, 2019 12:00am December 31, 2024 11:00am fluconazole 150 mg oral tablet (20 sources) Azole Antifungal Start: 05-14-2020 End: 05-15-2020 Diflucan 150 MG Oral Tablet 1 (one) Tablet one dose, repeat in 4 days if needed for 1 days Quantity: 2 {Tablet} Refills: 0 Ordered: 14-May-2020 Shelby Saenz DO, DO, Kathleen Start : 14-May-2020 End : 15-May-2020 Inactive Comments: 150 x1 repeat in 4 days if needed Start: 07-14-2016 End: 07-15-2016 take 1 tablet by mouth once Diflucan 150 MG Oral Table t 1 (one) Tablet once for 1 days Refills: 0 Ordered: 14-Jul-2016 David Jimenez Start : 14-Jul-2016 End : 15-Jul-2016 Inactive Comment on above: 150 x1 repeat in 4 d ays if needed levoFLOXacin 500 mg oral tablet (20 sources) Quinolone Antimicrobial Start: 10-20-19 End: 10-27-19 take 1 tablet by mouth once daily levoFLOXacin 500 mg oral tablet 1 Tablet daily for 7 days Quantity: 7 {Tablet} Refills: 0 Ordered: 19-Oct-2022 Adenike Cooepr CNP Start : 19-Oct-2022 End : 26-Oct-2022 Inactive Start: 09-23-2014 End: 02-25-2016 take 1 tablet by mouth once daily Levaquin 500 MG Oral Tablet 1 (one) Tablet daily for 0 days Quantity: 7 {QS} Refills: 0 Ordered: 25-Feb-2016 Wendy Hernández RN Start : 23-Sep-2014 End : 25-Feb-2016 Inactive meloxicam 15 mg oral tablet (1 source) Nonsteroidal Anti-inflammatory Drug Start: 09-03-2021 take 1 tablet by mouth once daily MOBIC 15 MG TABS Take 1 tablet by mouth once a day meloxicam [id number] Carrol Vance MD oseltamivir 75 mg oral capsule (20 sources) Neuraminidase Inhibitor Start: 08-20-2007 End: 09-24-2007 take 1 capsule by mouth twice daily TAMIFLU, 75MG (Oral Capsule) 1 (one) Capsule bid for 5 days Quantity: 10 {Capsule} Refills: 0 Ordered: 20-Aug-2007 Jenni Otoole Start : 20-Aug-2007 End : 24-Sep-2007 Inactive PARoxetine hydrochloride 10 mg oral tablet (20 sources) Serotonin Reuptake Inhibitor Start: 01-03-2007 End: 04-13-2007 take 1 tablet by mouth once daily PAROXETINE HCL, 10MG (Oral Tablet) 30 Tablet Daily for 0 days Quantity: 30 {Tablet} Refills: 0 Ordered: 03-Jan-2007 Barbara Sheets Start : 03-Jan-2007 End : 13-Apr-2007 Inactive phenazopyridine hydrochloride 100 mg oral tablet (20 sources) Start: 02-25-2016 End: 02-27-2016 take 1 tablet by mouth twice daily Pyridium 100 MG Oral Tablet 1 Tablet bid for 2 days Quantity: 6 {Tablet} Refills: 0 Ordered: 25-Feb-2016 Shelby Saenz DO, DO, Kathleen Start : 25-Feb-2016 End : 27-Feb-2016 Inactive phentermine hydrochloride 37.5 mg oral tablet (20 sources) Sympathomimetic Amine Anorectic Start: 03-06-2023 take 1 tablet by mouth once daily in the morning phentermine 37.5 mg oral tablet 1 (one) Tablet qam for 0 days Quantity: 30 {Tablet} Refills: 0 Ordered: 06-Mar-2023 Shelby Saenz DO, DO, Kathleen Start : 06-Mar-2023 Active Comments: estuardo rev thirtyoriginal 180# BMI 31wt 173 BMI 30 Start: 01-27-2023 take 1 tablet by morenita th once daily in the morning phentermine 37.5 mg oral tablet 1 (one) Tablet qam for 0 days Quantity: 30 {Tablet} Refills: 0 Ordered: 24-Feb-2023 Shelby Saenz DO, DO, Kathleen Start : 24-Feb-2023 Active Comments: oars rev thirtyoriginal 180# BMI 31wt 173 BMI 30 Start: 01-12-2023 take 1 tablet by morenita th once daily in the morning phentermine 37.5 mg oral tablet 1 (one) Tablet qam for 0 days Quantity: 30 {Tablet} Refills: 0 Ordered: 12-Jan-2023 Shelby Saenz DO, DO, Kathleen Start : 12-Jan-2023 Active Comments: oars rev thirtyoriginal 180# BMI 31 Start: 12-19-2022 take 1 tablet by morenita th once daily in the morning phentermine 37.5 mg oral tablet 1 (one) Tablet qam for 0 days Quantity: 30 {Tablet} Refills: 0 Ordered: 19-Dec-2022 Dany HOBBS Shelby Saenz DO Shelby Start : 19-Dec-2022 Active Comments: oars rev thirtyoriginal 180# BMI 31 Start: 03-09-2022 End: 06-29-2022 take 1 tablet by mouth once daily in the morning phentermine 37.5 mg oral tablet 1 (one) Tablet qam for 0 days Quantity: 30 {Tablet} Refills: 0 Ordered: 29-Jun-2022 James Muller CMA Start : 06-Apr-2022 End : 29-Jun-2022 Inactive Comments: oars rev thirtyoriginal 180# BMI 31as of 11-2 wt 155 and BMI 26 Start: 02-09-2022 take 1 tablet by morenita th once daily in the morning Phentermine HCl 37.5 MG Oral Tablet 1 (one) Tablet qam for 0 days Quantity: 30 {Tablet} Refills: 0 Ordered: 23-Feb-2022 Ruby Kerr CMA Start : 09-Feb-2022 Active Comments: oars rev thirty Comment on above: oars rev thirty oars rev thirtyorigi nal 180# BMI 31as of 11-2 wt 155 and BMI 26 oars rev thirtyorigi nal 180# BMI 31 oars rev thirtyorigi nal 180# BMI 31wt 173 BMI 30 predniSONE 10 mg oral tablet (12 sources) Start: 10-20-19 23 End: 12-19-19 23 predniSONE 10 mg oral tablet 1 Tablet As Directed;see taper instructions for 0 days Quantity: 21 {Tablet} Refills: 0 Ordered: 18-Dec-2022 SlaLilia caldwell LPN Start : 19-Oct-2022 End : 18-Dec-2022 Inactive promethazine hydrochloride 25 mg oral tablet (20 sources) Phenothiazine Start: 01-20-20 09 End: 11-13-19 11 PHENERGAN, 25MG (Oral Tablet) 1 (one) Tablet q6-8 hrs prn for 0 days Quantity: 30 {Tablet} Refills: 0 Ordered: 19-Jan-2009 Aspen Sandy LPN Start : 19-Jan-2009 End : 12-Nov-2010 Discontinued Comments: This order discontinued per [facility]. Comment on above: This order discontin ued per [facility]. sertraline 100 mg oral tablet (20 sources) Serotonin Reuptake Inhibitor Start: 12-20-19 End: 02-25-20 take 1 tablet by mouth once daily sertraline 100 mg oral tablet 1 (one) Tablet qd for 0 days Quantity: 90 {Tablet} Refills: 3 Ordered: 24-Feb-2023 Shelby Saenz DO, DO, Kathleen Start : 19-Dec-2022 End : 24-Feb-2023 Discontinued Start: 02-09-2022 take 1.5 tablets by mouth once daily Sertraline HCl 100 MG Oral Tablet 1.5 Tablet qd for 0 days Quantity: 135 {Tablet} Refills: 3 Ordered: 09-Feb-2022 Shelby Saenz DO, DO, Kathleen Start : 09-Feb-2022 Active Start: 08-31-2021 take 1 tablet by morenita once daily ZOLOFT 100 MG TABS 1 tablet by mouth once a day sertraline [id number] Ene Ramirez LPN Start: 04-23-2021 take 0.5 tablet by m outh once daily, then take 1 tablet by mouth once daily Sertraline HCl 100 MG Oral Tablet 1.5 Tablet qd for 0 days Quantity: 45 {Tablet} Refills: 6 Ordered: 06-Jan-2022 Shelby Saenz DO, DO, Kathleen Start : 06-Jan-2022 Active Comments: take 1/2 tab daily for one week then one tablet daily Start: 01-19-2009 End: 11-12-2010 take 1 tablet by mouth once daily SERTRALINE HCL, 50MG (Oral Tablet) 1 (one) Tablet daily for 0 days Quantity: 30 {Tablet} Refills: 3 Ordered: 12-Nov-2010 Aspen Sandy LPN Start : 19-Jan-2009 End : 12-Nov-2010 Inactive Start: 09-24-2007 End: 05-20-2008 take 1 tablet by mouth once daily ZOLOFT, 50MG (Oral Tablet) 1 (one) Tablet Daily for 0 days Quantity: 30 {Tablet} Refills: 0 Ordered: 24-Sep-2007 Wendy Hernández RN Start : 24-Sep-2007 End : 20-May-2008 Inactive Comments: may substitute generic SERTRALINE HCL, 100MG (PO Tablet) Needs new RX (100 MG) Inactive Comment on above: may substitute gener ic take 1/2 tab daily f or one week then one tablet daily solifenacin succinate 5 mg oral tablet (20 sources) Cholinergic Muscarinic Antagonist Start: 01-04-20 End: 04-13-20 07 take 1 tablet by mouth once daily VESICARE, 5MG (Oral Tablet) Tablet Daily for 0 days Refills: 0 Ordered: 03-Jan-2007 Barbara Sheets Start : 03-Jan-2007 End : 13-Apr-2007 Inactive valACYclovir 1000 mg oral tablet (14 sources) Herpesvirus Nucleoside Analog DNA Polymerase Inhibitor, Herpes Simplex Virus Nucleoside Analog DNA Polymerase Inhibitor, Herpes Zoster Virus Nucleoside Analog DNA Polymerase Inhibitor Start: 06-29-19 23 Valtrex 1 gram oral tablet 1 (one) tablet bid for 2days for 0 days Quantity: 4 {Tablet} Refills: 2 Ordered: 29-Jun-2022 Mandi Paz LPN Start : 29-Jun-2022 Active 24 hr venlafaxine 75 mg extended release oral tablet (20 sources) Serotonin and Norepinephrine Reuptake Inhibitor Start: 12-13-19 12 End: 07-10-19 13 take 1 tablet by mouth once daily at mealtime VENLAFAXINE HCL, 75MG (Oral Tablet Extended Release 24 Hour) 1 Tablet ER 24HR daily for 0 days Quantity: 30 {Tablet_ER_24HR} Refills: 1 Ordered: 10-Jul-2012 Aspen Sandy LPN Start : 13-Dec-2011 End : 10-Jul-2012 Inactive Comments: take with food Comment on above: take with food NEGATED: Highlighted row has not occurred!drug or medication (3 sources) No Known Histori palak Medications NEGATED: Highlighted row has not occurred!No Known Historical Medications (5 sources) No Known Histori palak Medications Problems Active Problems Problem Classification Problem Date Documented Date Episodic/Chronic Administrative/socia l admission (20 sources) Patient encounter status; Translations: [Nutritional counseling] 12-19-2022 Episodic Anxiety disorders (20 sources) Anxiety; Translations: [Anxiety state] 08-23-2019 Chronic Chronic obstructive pulmonary disease and bronchiectasis (20 sources) Bronchitis; Translations: [Bronchitis] Resolved: 6 01-26-2017 Episodic Chronic obstructive pulmonary disease and bronchiectasis (3 sources) Chronic obstructive pulmonary disease and bronchiectasis Conditions associated with dizziness or vertigo (8 sources) Dizziness; Translations: [Dizziness and giddiness] 07-19-2022 Episodic Esophageal disorders (20 sources) Gastroesophageal reflux disease; Translations: [GERD (gastroesophageal reflux disease)] 01-06-2022 Chronic Genitourinary symptoms and ill-defined conditions (20 sources) Urinary frequency; Translations: [Blood in urine] Resolved: 7 01-26-2017 Episodic Comment on above: resolved Influenza (20 sources) Influenza with non-respiratory manifestation; Translations: [Influenza with other manifestations] Resolved: 6 01-26-2017 Episodic Comment on above: too late for tamiflu . Menstrual disorders (20 sources) Irregular periods; Translations: [Irregular menstrual cycle] Resolved: 7 01-26-2017 Chronic Comment on above: no insurance- if per sists think perimenopausal? endometrial issue? due for pap - consider lab work - possibily ultrasound- negative pregnancyDiscussed trying OTC progesterone creme at small dose. Mood disorders (20 sources) Depressive disorder; Translations: [Depressive disorder] 08-23-2019 Chronic Mycoses (20 sources) Candidiasis of vagina; Translations: [Yeast infection of the vagina] Resolved: 7 01-26-2017 Episodic Nausea and vomiting (20 sources) Nausea and vomiting; Translations: [Nausea and vomiting] Resolved: 6 01-26-2017 Episodic Nutritional deficiencies (8 sources) Vitamin D deficiency; Translations: [Vitamin D deficiency] 02-24-2023 Chronic Osteoarthritis (20 sources) Arthritis; Translations: [Arthritis] Onset: 2 08-23-2019 Chronic Comment on above: Rt hip Other circulatory disease (4 sources) Elevated blood-pressure reading without diagnosis of hypertension; Translations: [Elevated blood-pressure reading, without diagnosis of hypertension] 07-19-2022 Episodic Other connective tissue disease (20 sources) Spasm; Translations: [Muscle spasm] Resolved: 9 01-26-2017 Episodic Comment on above: lumbar area Other connective tissue disease (20 sources) Pain of left hand; Translations: [Hand pain, left] Resolved: 2 08-06-2021 Episodic Other connective tissue disease (20 sources) Pain in left thumb; Translations: [Thumb pain, left] Resolved: 3 08-06-2021 Episodic Other ear and sense organ disorders (20 sources) Otalgia, right ear; Translations: [Right ear pain] Resolved: 7 01-26-2017 Episodic Other lower respiratory disease (20 sources) Cough; Translations: [Cough] Resolved: 6 01-26-2017 Episodic Other nutritional; endocrine; and metabolic disorders (3 sources) Body mass index 25-29 - overweight; Translations: [BMI 27.0-27.9,adult] 08-23-2019 Chronic Other nutritional; endocrine; and metabolic disorders (20 sources) Body mass index 30+ - obesity; Translations: [BMI 30.0-30.9,adult] Resolved: 3 10-19-2022 Chronic Other nutritional; endocrine; and metabolic disorders (20 sources) Weight gain; Translations: [Weight gain] Resolved: 7 01-26-2017 Episodic Comment on above: related to stress- o r probable hormane imbalance Other nutritional; endocrine; and metabolic disorders (13 sources) Body mass index 25-29 - overweight; Translations: [BMI 27.0-27.9,adult] Resolved: 2 04-23-2021 Episodic Other nutritional; endocrine; and metabolic disorders (20 sources) Overweight in adulthood with body mass index of 25 or more but less than 30; Translations: [BMI 28.0-28.9,adult] Resolved: 3 01-06-2022 Episodic Other screening for suspected conditions (not mental disorders or infectious disease) (2 sources) Encounter for screening mammogram for malignant neoplasm of breast; Translations: [Encounter for screening for malignant neoplasm of cervix] Onset: 5 Episodic Other skin disorders (10 sources) Epidermoid cyst of skin; Translations: [Sebaceous cyst] 08-23-2019 Episodic Other skin disorders (20 sources) Sebaceous cyst of skin; Translations: [Sebaceous cyst] Resolved: 2 04-23-2021 Episodic Other upper respiratory disease (20 sources) Pain in throat Episodic Other upper respiratory disease (20 sources) Nasal congestion; Translations: [Nasal congestion] Resolved: 7 01-26-2017 Episodic Other upper respiratory infections (20 sources) Bacterial sinusitis; Translations: [Sinusitis, bacterial] Resolved: 7 01-26-2017 Chronic Other upper respiratory infections (20 sources) Acute pharyngitis; Translations: [Sore throat symptom] Onset: 1 08-23-2019 Episodic Comment on above: called [facility] lcar[facility] to cancel RX for prednisone and levaquin, the flu swab just popped up +.she started a Z-greg 10/17, so this is day #3 out of 5. has allergy to PCN Otitis media and related conditions (20 sources) Otitis media; Translations: [Dysfunction of right eustachian tube] Resolved: 2 01-26-2017 Episodic Residual codes; unclassified (20 sources) Chill; Translations: [Chills] Resolved: 1 08-23-2019 Episodic Residual codes; unclassified (20 sources) Family history of polycystic kidney; Translations: [Family history of polycystic kidney] 08-23-2019 Episodic Comment on above: Normal ultrasound , creat 1.03 , BP normal no signs of polycystic kidney, told yearly follow up for BP, renal panel and UA Residual codes; unclassified (3 sources) H/O: surgery; Translations: [Tonsillectomy] 08-23-2019 Episodic Comment on above: 1989 Residual codes; unclassified (3 sources) H/O: section; Translations: [ Section] 08-23-2019 Episodic Comment on above: X 2 Residual codes; unclassified (20 sources) Non-smoker; Translations: [Nonsmoker] 04-23-2021 Episodic Skin and subcutaneous tissue infections (4 sources) Cellulitis of right thumb; Translations: [Cellulitis of right finger] 07-20-2017 Episodic Spondylosis; intervertebral disc disorders; other back problems (20 sources) Sciatica; Translations: [Sciatica] Resolved: 7 01-26-2017 Episodic Superficial injury; contusion (4 sources) Contusion of thumb nail; Translations: [Contusion of right thumb with damage to nail, initial encounter] 07-20-2017 Episodic Unclassified (20 sources) Unclassified (20 sources) Non-smoker; Translations: [Nonsmoker] 08-23-2019 Unclassified (13 sources) PTSD (post-traumatic stress disorder) Unclassified (5 sources) BRONCHITIS, NOT SPECIFIED ACUTE OR CHRONIC (490.) Unclassified (3 sources) BMI 28.0-28.9,adult Unclassified (1 source) Unspecified lump in the right breast, overlapping quadrants; Translations: [Unspecified lump in the right breast, overlapping quadrants] Onset: 5 Urinary tract infections (20 sources) Acute hemorrhagic cystitis; Translations: [Cystitis, acute hemorrhagic] Resolved: 7 01-26-2017 Episodic Viral infection (20 sources) Recurrent herpes simplex labialis; Translations: [Recurrent cold sores] 06-29-2022 Episodic Past or Other Problems Problem Classification Problem Date Documented Da te Episodic/Chronic Other ear and sense organ disorders (3 sources) Otalgia of right ear; Translations: [Right ear pain] Resolved: 01-26-2017 01-26-2017 Otitis media and related conditions (3 sources) Dysfunction of right eustachian tube; Translations: [Dysfunction of right eustachian tube] 08-23-2019 Unclassified (20 sources) BMI 27.0-27.9,adult Unclassified (20 sources) Abortions/Miscarria ges; Translations: [Abortions/Miscarri ages] 08-23-2019 Comment on above: 3 Unclassified (8 sources) Irregular Menstraul Cycle (626.4) Unclassified (20 sources) Anxiety state, unspecified (300.00) Unclassified (20 sources) D&C X 3 08-23-2019 Unclassified (20 sources) Deliveries (Parity); Translations: [Deliveries (Parity)] 08-23-2019 Comment on above: 2 Unclassified (8 sources) Muscle spasm (728.85) Unclassified (20 sources) Pregnancies (); Translations: [Pregnancies ()] 08-23-2019 Comment on above: 5 Unclassified (20 sources) Status; Translations: [ Status] 08-23-2019 Unclassified (20 sources) Unspecified Diagnosis 08-23-2019 Unclassified (8 sources) Cystitis, acute hemorrhagic Unclassified (8 sources) Sinusitis, bacterial Unclassified (8 sources) Dysfunction of right eustachian tube Unclassified (8 sources) Right ear pain Unclassified (16 sources) Yeast infection of the vagina Unclassified (8 sources) Weight gain (783.1) Unclassified (1 source) Sebaceous cyst of skin; Translations: [Sebaceous cyst] 08-23-2019 Unclassified (4 sources) Hand pain, left Unclassified (4 sources) Thumb pain, left Unclassified (1 source) Problem Results Test Name Value Interpretation Reference Range Facility Breast Limited Unilateralon 12-26-2024 Breast Limited Unilateral [facility] [address] [place], [place] [id number] Breast Limited Unilateral MR#: [id number] Acct: [id number] Name: SONY ALVARENGA Rep #: [id number] : 1970 F 54 From: Elizabeth Mchugh MD PCP: TATO Martines Status: [facility] CLI Study: Breast Limited Unilateral Date of Exam: Exam# [id number] Ordering Dr: Jany Wolff PROCEDURE: BREAST LIMITED UNILATERAL 12/26/2024 REASON FOR EXAM: 54-year-old female presents for follow-up of the right breast findings seen on examination 12/25/2024. Family history of breast cancer in a paternal grandmother at age 40 COMPARISON: Mammogram 12/25/2024. TECHNIQUE: BREAST LIMITED UNILATERAL FINDINGS: Ultrasound performed of the upper central right breast. Follow-up examination performed for the right breast mass seen on examination of 12/25/2024. On the present examination, there is round hypoechoic mass in the retroareolar right breast, measuring 0.8 x 0.7 x 0.6 cm. There is mild internal vascular flow. This is the correlate for the mammographic finding. US/Breast Limited Unilateral IMPRESSION: Probably benign right breast mass in the retroareolar region. Recommend short interval six-month diagnostic ultrasound of the right breast. BI-RADS 3: PROBABLY BENIGN. RECOMMENDATION: 6 Month Follow-up Reading Location: [id number] CC: TATO Wolff Interface Control Officer: Signed Normal [facility] Breast imaging reportOrdered By: Elizabeth Mchugh on 12-25-2024 Study report [facility] Services [address] [place] [address] SCRN MAMM (CAD)W/FELICIA BILAT MR#: [id number] Acct: [id number] Name: SONY ALVARENGA Rep #: [id number] : 1970 F 54 From: Lanette Mchugh MD PCP: TATO Martines Status: REG CLI Study:SCRN MAMM (CAD)W/FELICIA BILAT Date of Exa m: 12/25/24 Exam# [id number] Ordering Dr: Ra peri Wolff EXAM: SCRN MAMM (CAD)W/FELICIA BILAT DATE: 12/25/2024 CLINICAL HISTORY: F, Age 54 y/o , SCREENING TECHNIQUE: SCRN MAMM (CAD)W/FELICIA BILAT COMPARISON: No priors available. FINDINGS: TISSUE DENSITY: The breasts are heterogeneously dense, which may obscure small masses. The mammogram demonstrates that the patient has dense breasts. Supplemental screening with whole breast ultrasound or MRI may be considered for further evaluation. Bilateral Breast Mammographic Findings: There is a mass in the upper central right breast at middle depth. No significant masses, calcifications or other abnormalities are identified in the left breast. BI/SCRN MAMM (CAD)W/FELICIA BILAT IMPRESSION: Mass in the upper central right breast at middle depth requires further evaluation. Recommend diagnostic ultrasound of the right breast. OVERALL FINAL ASSESSMENT BI-RADS 0: INCOMPLETE - NEED ADDITIONAL IMAGING EVALUATION. RECOMMENDATION: Ultrasound Recommended A letter with findings and recommendations will be mailed to the patient. Reading Location: [id number] CC: TATO Wolff ~ Interface Control Officer: Signed [facility] SCRN MAMM (CAD)W/FELICIA BILATo n 12-25-2024 SCRN MAMM (CAD)W/FELICIA BILAT [facility] Services [address] [place] [address] SCRN MAMM (CAD)W/FELICIA BILAT MR#: [id number] Acct: [id number] Name: SONY ALVARENGA Rep #: [id number] : 1970 F 54 From: Elizabeth Mchugh MD PCP: TATO Martines Status: REG CLI Study: SCRN MAMM (CAD)W/FELICIA BILAT Date of Exam: 12/04 08/27 Exam# [id number] Ordering Dr: Jany Wolff TRANSMISSION INSPECTOR-C EXAM: SCRN MAMM (CAD)W/FELICIA BILAT DATE: 12/25/2024 CLINICAL HISTORY: F, Age 54 y/o , SCREENING TECHNIQUE: SCRN MAMM (CAD)W/FELICIA BILAT COMPARISON: No priors available. FINDINGS: TISSUE DENSITY: The breasts are heterogeneously dense, which may obscure small masses. The mammogram demonstrates that the patient has dense breasts. Supplemental screening with whole breast ultrasound or MRI may be considered for further evaluation. Bilateral Breast Mammographic Findings: There is a mass in the upper central right breast at middle depth. No significant masses, calcifications or other abnormalities are identified in the left breast. BI/SCRN MAMM (CAD)W/FELICIA BILAT IMPRESSION: Mass in the upper central right breast at middle depth requires further evaluation. Recommend diagnostic ultrasound of the right breast. OVERALL FINAL ASSESSMENT BI-RADS 0: INCOMPLETE - NEED ADDITIONAL IMAGING EVALUATION. RECOMMENDATION: Ultrasound Recommended A letter with findings and recommendations will be mailed to the patient. Reading Location: [facility] CC: TRANSMISSION INSPECTOR-C Jany Wolff Interface Control Officer: Signed Normal [facility] PAP I-G w/rfx hrHPV-Aptimaon 12-13-2024 ADEQ Comment Normal . [facility] Comment on above: Order Comment: Speci men Comment: No. of containers..01 ThinPrep Vial Result Comment: Sati sfactory for evaluation. No endocervical component is identified. Performed By: #### L 7400.0353 #### [facility] [address] [place], [address] COMM . Normal . [facility] Comment on above: Order Comment: Speci men Comment: No. of containers..01 ThinPrep Vial Performed By: #### L 7400.0353 #### [facility] [address] [place], [address] COMMENT Comment Normal . [facility] Comment on above: Order Comment: Speci men Comment: No. of containers..01 ThinPrep Vial Result Comment: This liquid based ThinPrep(R) pap test was screened with the use of an image guided system. Performed By: #### L 7400.0353 #### [facility] [address] [place], [address] DIAG Comment Normal . [facility] Comment on above: Order Comment: Speci men Comment: No. of containers..01 ThinPrep Vial Result Comment: NEGA TIVE FOR INTRAEPITHELIAL LESION OR MALIGNANCY. Performed By: #### L 7400.0353 #### [facility] [address] [place], [address] HPV RFLX Comment Normal . [facility] Comment on above: Order Comment: Speci men Comment: No. of containers..01 ThinPrep Vial Result Comment: The HPV DNA reflex criteria were not met with this specimen result therefore, no HPV testing was performed. Performed at: [address] [id number] Bi Consultant: Kat Donovan MD, Phone: [phone] Performed By: #### L 7400.0353 #### [facility] [address] [place], [address] PAPSMR Comment Normal . [facility] Comment on above: Order Comment: Speci men Comment: No. of containers..01 ThinPrep Vial Result Comment: The Pap smear is a screening test designed to aid in the detection of premalignant and malignant conditions of the uterine cervix. It is not a diagnostic procedure and should not be used as the sole means of detecting cervical cancer. Both false-positive and false-negative reports do occur. Performed By: #### L 7400.0353 #### [facility] [address] [place], [place], [id number] PERFORM Comment Normal . [facility] Comment on above: Order Comment: Speci men Comment: No. of containers..01 ThinPrep Vial Result Comment: Daphney Christianson, Elementary Assistant Teacher (ASCP) Performed By: #### L 7400.0353 #### [facility] [address] [place], [place], [id number] Cervical or vagninal specime n microscopic examination by cytology stain (reported asOrdered By: Jany Wolff on 12-11-2024 Cytology report Cyto stain Doc (Cvx/Vag) Comment . [facility] Comment on above: The Pap smear is a s creening test designed to aid in thedetection of premalignant and malignant conditions of theuterine cervix. It is not a diagnostic procedure andshould not be used as the sole means of detecting cervicalcancer. Both false-positive and false-negative reports dooccur. Laboratory - CytologyOrdered By: Jany Wolff on 12-11-2024 Elementary Assistant Teacher Cyto stain Nom (Cvx/Vag) [ID] Comment . [facility] Comment on above: Frederick Merritt ytologist (ASCP) Laboratory - Miscellaneous t estsOrdered By: Jany Wolff on 12-11-2024 Service comment (Unsp spec) [Interp] . . [facility] No Panel InformationOrdered By: Jany Wolff on 12-11-2024 Pap Smear Specimen Adequacy Comment . [facility] Comment on above: Satisfactory for mark luation. No endocervical component is identified. INHOUSE COVID 19 (ONLY) RAPI D ([id number])Ordered By: Mandi Paz on 10-19-2022 SARS-CoV-2 (COVID-19) RNA SENIA+probe Ql (Unsp spec) Negative [facility]; [facility] Work Phone: Rapid Flu ([phone] x 2)Ordered By: Mandi Paz on 10-19-2022 FLUAV Ag IA Ql (Throat) Positive Normal [facility]; [facility] Work Phone: Comment on above: Positive Flu A Rapid Strep Test, Office ([phone])Ordered By: Mandi Paz on 10-19-2022 S. pyogenes Ag EIA Ql (Throat) Negative Normal [facility]; [facility] Work Phone: Absolute lymphocyte countOrd ered By: Dr. Gaspar on 07-19-2022 Lymphocytes Auto (Unsp spec) [#/Vol] 1.49 10*3/uL 0.83-4.51 [facility] Basophil percentageOrdered B y: Dr. Gaspar on 07-19-2022 Basophils/100 WBC (Bld) 0.7 % 0-1 [facility] Bilirubin [Mass/Vol] 0.50 mg/dL 0.20-1.00 [facility] Comment on above: For patients on eltr ombopag therapy, use of Dimension [place] TBIL is not recommended. Chloride [Moles/Vol] 105 mmol/L 98-107 [facility] Eosinophils/100 WBC (Bld) 4.0 % 0-5 [facility] Glucose [Mass/Vol] 105 mg/dL 74-106 [facility] Comment on above: Fasting Glucose resu lt from 100 to 125 mg/dL suggests IMPAIRED HOMEOSTASIS per A.D.A. criteria. Neutrophils (Bld) [#/Vol] 5.0 10*3/uL 2.0-7.7 [facility] Neutrophils/100 WBC (Bld) 68.6 % 47-70 [facility] Potassium [Moles/Vol] 4.2 mmol/L 3.5-5.1 [facility] Protein [Mass/Vol] 7.8 g/dL 6.4-8.2 [facility] Sodium [Moles/Vol] 140 mmol/L 136-145 [facility] WBC (Bld) [#/Vol] 7.3 10*3/uL 4.4-11.0 [facility] Basophil percentage 0 SEEN /hpf 0-5 [facility] Bilirubin Test strip Ql (U)O rdered By: Dr. Gaspar on 07-19-2022 Bilirubin Ql (U) Negative Negative [facility] Blood erythrocytes count (nu mber/volume)Ordered By: Dr. Gaspar on 07-19-2022 RBC (Bld) [#/Vol] 4.55 10*6/uL 4.2-5.[address] [facility] Blood hemoglobin measurement (mass/volume)Ordered By: Dr. Gaspar on 07-19-2022 Hemoglobin (Bld) [Mass/Vol] 14.3 g/dL 12.0-15.0 [facility] Blood lymphocytes/100 leukoc ytesOrdered By: Dr. Gaspar on 07-19-2022 Lymphocytes/100 WBC (Bld) 20.3 % 19-41 [facility] Blood monocytes/100 leukocyt esOrdered By: Dr. Gaspar on 07-19-2022 Monocytes/100 WBC (Bld) 6.1 % 0-10 [facility] Blood platelet mean volumeOr dered By: Dr. Gaspar on 07-19-2022 Platelet mean volume (Bld) [Entitic vol] 10.4 fL 6.2-12.0 [facility] Determination of erythrocyte mean corpuscular volume (MCV)Ordered By: Dr. Gaspar on 07-19-2022 MCV (RBC) [Entitic vol] 95.8 fL 81-99 [facility] Glucose Glucometer (BldC) [M ass/Vol]Ordered By: Dr. Gaspar on 07-19-2022 Glucose [Mass/Vol] 96 mg/dL 74-106 [facility] Comment on above: MANAGEMENT OF PATIEN T CARE PER NURSING PROTOCOL Hematocrit Auto (Bld) [Volum e fraction]Ordered By: Dr. Gaspar on 07-19-2022 Hematocrit (Bld) [Volume fraction] 43.6 % 37-47 [facility] Ketones Test strip Ql (U)Ord ered By: Dr. Gaspar on 07-19-2022 Ketones Ql (U) Negative Negative [facility] - Chemistry and C hemistry - challengeOrdered By: Dr. Gaspar on 07-19-2022 ALP [Catalytic activity/Vol] 90 U/L 45-117 [facility] ALT [Catalytic activity/Vol] 20 U/L 13-56 [facility] CO2 [Moles/Vol] 29.0 mmol/L 21.0-32.0 [facility] Globulin (S) [Mass/Vol] 3.8 g/dL 2.2-4.2 [facility] Urea nitrogen/Creatinine [Mass ratio] 17.5 mg/mg 10-20 [facility] - Hematology and Cell countsOrdered By: Dr. Gaspar on 07-19-2022 Erythrocyte distribution width (RBC) [Entitic vol] 43.8 fL 35.1-43.9 [facility] Erythrocyte distribution width (RBC) [Ratio] 12.4 % 11.6-14.6 [facility] Immature granulocytes/100 WBC (Bld) 0.300 % 0.0-0.9 [facility] Comment on above: IG% - Immature Granu locytes (promyelocytes, myelocytes and metamyelocytes) > 1% indicates that a LEFT SHIFT is Present. MCH (RBC) [Entitic mass] 31.4 pg 27.0-32.0 [facility] Nucleated RBC/100 WBC (Bld) [Ratio] 0 % 0-5 [facility] MCHC Auto (RBC) [Mass/Vol]Or dered By: Dr. Gaspar on 07-19-2022 MCHC (RBC) [Mass/Vol] 32.8 g/dL 32-36 [facility] Mucus LM Ql (Urine sed)Order ed By: Dr. Gaspar on 07-19-2022 Mucus Ql (Urine sed) 0 SEEN /hpf [facility] Nitrite Test strip Ql (U)Ord ered By: Dr. Gaspar on 07-19-2022 Nitrite Ql (U) Negative Negative [facility] No Panel InformationOrdered By: Dr. Gaspar on 07-19-2022 Estimated Creatinine Clearance Calc 65.33 ml/min [facility] Estimated GFR (MDRD) Amer 89 mL/min >60 [facility] Comment on above: GFR Calc Estimated GFR (MDRD) Non-Af Amer 74 mL/min >60 [facility] Comment on above: Non- GFR Calc Troponin I High Sensitivity 4 pg/mL 3.0-54.0 [facility] Comment on above: Please Note: New Anjelica t Units and Gender Specific Reference Ranges. For more information see Policy Stat Procedure [place] High Sensitivity Troponin (TNIH) and attachments. Platelets bldOrdered By: Dr. Gaspar on 07-19-2022 Platelets (Bld) [#/Vol] 211 10*3/uL 150-450 [facility] Protein Test strip Ql (U)Ord ered By: Dr. Gaspar on 07-19-2022 Protein Ql (U) Negative Negative [facility] Serum or plasma albumin xiomy urement (mass/volume)Ordered By: Dr. Gaspar on 07-19-2022 Albumin [Mass/Vol] 4.0 g/dL 3.2-5.0 [facility] Serum or plasma albumin/glob ulin mass ratioOrdered By: Dr. Gaspar on 07-19-2022 Albumin/Globulin [Mass ratio] 1.1 {ratio} 0.9-2.4 [facility] Serum or plasma calcium xiomy urement (mass/volume)Ordered By: Dr. Gaspar on 07-19-2022 Calcium [Mass/Vol] 9.3 mg/dL 8.5-10.1 [facility] Serum or plasma creatinine m easurement (mass/volume)Ordered By: Dr. Gaspar on 07-19-2022 Creatinine [Mass/Vol] 0.86 mg/dL 0.55-1.02 [facility] Comment on above: The validity of the calculated GFR & GFRAA in patients over 70 years has not been determined. Clinical correlation is essential. Serum or plasma urea nitroge n measurement (mass/volume)Ordered By: Dr. Gaspar on 07-19-2022 Urea nitrogen [Mass/Vol] 15 mg/dL 7-18 [facility] Squamous epithelial cells de tection in urine sediment by light microscopyOrdered By: Dr. Gaspar on 07-19-2022 Epithelial cells.squamous LM Ql (Urine sed) 0 SEEN /hpf 5-10 [facility] Thin prep Papanicolaou smear with manual screeningOrdered By: Dr. Gaspar on 07-19-2022 Thin prep Papanicolaou smear with manual screening 14 U/L 15-37 [facility] Thin prep Papanicolaou smear with manual screening 6 5-15 [facility] Urine blood detectionOrdered By: Dr. Gaspar on 07-19-2022 RBC Ql (U) Negative Negative [facility] RBC Ql (U) 0 SEEN /hpf 0-5 [facility] Urine clarityOrdered By: Dr. Gaspar on 07-19-2022 Clarity (U) Clear Clear [facility] Urine color determinationOrd ered By: Dr. Gaspar on 07-19-2022 Color (U) Yellow Yellow [facility] Urine glucose detectionOrder ed By: Dr. Gaspar on 07-19-2022 Glucose Ql (U) Normal mg/dl Normal [facility] Urine leukocyte esterase det ection by dipstickOrdered By: Dr. Gaspar on 07-19-2022 Leukocyte esterase Test strip Ql (U) Negative Negative [facility] Urine pHOrdered By: Dr. Selin gonzales on 07-19-2022 pH (U) 7.0 [pH] 5.0 - 8.0 [facility] Urine sediment bacteria coun t by microscopy (number/high power field)Ordered By: Dr. Gaspar on 07-19-2022 Bacteria LM.HPF (Urine sed) [#/Area] 0 /[HPF] None Seen [facility] Urine specific gravity measu rementOrdered By: Dr. Gaspar on 07-19-2022 Specific gravity (U) [Rel density] 1.005 1.002-1.03 0 [facility] Urobilinogen Auto test strip Ql (U)Ordered By: Dr. Gaspar on 07-19-2022 Urobilinogen Ql (U) Normal mg/dl Normal [facility] Clinical Summary: Mich harley 09-03-2021 MC25 OP Hand Invalid Interpretation Code [facility] Work Phone: Clinical Lists Update: Prelo ad Extendedon 08-31-2021 Tobacco smoking status Tobacco smoking status In valid Interpretation Code [facility] Work Phone: Clinical Summary: Scanned Hi story Summaryon 08-31-2021 cause of , father Polycystic Kidney Disease Invalid Interpretation Code [facility] Work Phone: comments about allergies Compazine Invalid Interpretation Code [facility] Work Phone: data entered by patient, alcohol (ethanol or ETOH) use No Invalid Interpretation Code [facility] Work Phone: Data entered by patient, allergy list Penicillin I don't have any Environmental Allergies I don't have any Food Allergies Invalid Interpretation Code [facility] Work Phone: data entered by patient, drug (of abuse) use No Invalid Interpretation Code [facility] Work Phone: data entered by patient, Employer Name employed Invalid Interpretation Code [facility] Work Phone: data entered by patient, exercise history No Invalid Interpretation Code [facility] Work Phone: data entered by patient, father's medical history High blood pressure Kidney disease Invalid Interpretation Code [facility] Work Phone: Data entered by patient, history of past surgeries Breast surgery other section Gallbladder surgery Tonsillectomy Invalid Interpretation Code [facility] Work Phone: Data entered by patient, medication list [id number]/daily Invalid Interpretation Code [facility] Work Phone: data entered by patient, mother's medical history COPD Osteoporosis Invalid Interpretation Code [facility] Work Phone: data entered by patient, past medical history Anxiety Depression GERD Invalid Interpretation Code [facility] Work Phone: data entered by patient, social history, current smoker never smoker Invalid Interpretation Code [facility] Work Phone: data entered by patient, social history, marital status single Invalid Interpretation Code [facility] Work Phone: father of patient is alive or Invalid Interpretation Code [facility] Work Phone: Housing Type: apartment, house, residential, trailer, none house Invalid Interpretation Code [facility] Work Phone: housing unit size (asthma environmental history, housing) (from single family to don't know) 2 floors Invalid Interpretation Code [facility] Work Phone: medical history of patient's brother(s), comments Degenerative Brain Disease 1993 Invalid Interpretation Code [facility] Work Phone: mother of patient is alive or Alive Invalid Interpretation Code [facility] Work Phone: Number of dependent children No Invalid Interpretation Code [facility] Work Phone: sister of patient(s) alive or I do not have any sisters. My sister(s)' health history is unknown. Invalid Interpretation Code [facility] Work Phone: Web entered surgical history comments Uterine Ablation Invalid Interpretation Code [facility] Work Phone: comments about allergies Compazine Invalid Interpretation Code [facility] Work Phone: data entered by patient, alcohol (ethanol or ETOH) use No Invalid Interpretation Code [facility] Work Phone: Data entered by patient, allergy list Penicillin Invalid Interpretation Code [facility] Work Phone: data entered by patient, drug (of abuse) use No Invalid Interpretation Code [facility] Work Phone: data entered by patient, Employer Name employed Invalid Interpretation Code [facility] Work Phone: data entered by patient, exercise history No Invalid Interpretation Code [facility] Work Phone: Data entered by patient, history of past surgeries Breast surgery other section Gallbladder surgery Tonsillectomy Invalid Interpretation Code [facility] Work Phone: Data entered by patient, medication list [id number]/daily Invalid Interpretation Code [facility] Work Phone: data entered by patient, mother's medical history COPD Osteoporosis Invalid Interpretation Code [facility] Work Phone: data entered by patient, past medical history Anxiety Depression GERD Invalid Interpretation Code [facility] Work Phone: data entered by patient, social history, current smoker never smoker Invalid Interpretation Code [facility] Work Phone: data entered by patient, social history, marital status single Invalid Interpretation Code [facility] Work Phone: Housing Type: apartment, house, residential, trailer, none house Invalid Interpretation Code [facility] Work Phone: housing unit size (asthma environmental history, housing) (from single family to don't know) 2 floors Invalid Interpretation Code [facility] Work Phone: mother of patient is alive or Alive Invalid Interpretation Code [facility] Work Phone: Number of dependent children No Invalid Interpretation Code [facility] Work Phone: Web entered surgical history comments Uterine Ablation Invalid Interpretation Code [facility] Work Phone: URINE BC CULTURE-IDENTIFICA [place] ([id number])Ordered By: Brief Writer on 02-25-2016 Bacteria identified Cx Nom (U) Escherichia coli Abnormal [facility] Work Phone: Comment on above: 25,000-50,000 colony forming units per mL PATIENT NOT FASTINGP ERFORMED BY: CB LabCoThe [facility] HospitalVsneft8315 [facility] [id number] Information: [id number] SRC:UC Bacteria identified Cx Nom (U) Final report Abnormal [facility] Work Phone: Comment on above: PATIENT NOT FASTINGP ERFORMED BY: [facility] Pglnrn5954 [facility] [id number] Information: [id number] SRC: Other Antibiotic [Susc] MIHEAD Normal [facility] Work Phone: Comment on above: S = Susceptible; I = Intermediate; R = Resistant P = Positive; N = Negative MICS are expressed in micrograms per mL Antibiotic RSLT#1 RSLT#2 RSLT#3 RSLT#4Amoxicillin/Clavulanic Acid SAmpicillin SCefepime SCeftriaxone SCefuroxime SCephalothin ICiprofloxacin SErtapenem SGentamicin SImipenem SLevofloxacin SNitrofurantoin SPiperacillin STetracycline STobramycin STrimethoprim/Sulfa S PATIENT NOT FASTINGP ERFORMED BY: [facility] Tamici3895 [facility] [id number] Information: [id number] SRC: Urinalysis, Office ([id number])Or dered By: David Jimenez on 02-25-2016 Bilirubin Ql (U) Negative Normal [facility] Work Phone: Bilirubin Ql (U) Negative Normal [facility]; [facility] Work Phone: Glucose Test strip (U) [Mass/Vol] Negative Normal [facility] Work Phone: Glucose Test strip (U) [Mass/Vol] Negative Normal [facility]; [facility] Work Phone: Hemoglobin Ql (U) Hemolyzed Large Normal Co [facility] Work Phone: Ketones Ql (U) Negative Normal [facility] Work Phone: Ketones Ql (U) Negative Normal [facility]; [facility] Work Phone: Leukocyte esterase Test strip Ql (U) Small Normal [facility] Work Phone: Nitrite Ql (U) Negative Normal [facility] Work Phone: Nitrite Ql (U) Negative Normal [facility]; [facility] Work Phone: pH (U) 7.5 [pH] Normal [facility] Work Phone: Protein Ql (U) 30 mg/dL Normal [facility] Work Phone: Specific gravity (U) [Rel density] 1.020 1 Normal [facility] Work Phone: Urobilinogen (24H U) [Mass/Time] Normal Normal [facility] Work Phone: Urinalysis, Office ([id number])on 07-24-2012 Bilirubin Ql (U) Negative Normal [facility] Work Phone: Bilirubin Ql (U) Negative Normal [facility]; [facility] Work Phone: Glucose Test strip (U) [Mass/Vol] Negative Normal [facility] Work Phone: Glucose Test strip (U) [Mass/Vol] Negative Normal [facility]; [facility] Work Phone: Hemoglobin Ql (U) Negative Normal [facility] Work Phone: Hemoglobin Ql (U) Negative Normal [facility]; [facility] Work Phone: Ketones Ql (U) Negative Normal [facility] Work Phone: Ketones Ql (U) Negative Normal [facility]; [facility] Work Phone: Leukocyte esterase Test strip Ql (U) Negative Normal [facility] Work Phone: Leukocyte esterase Test strip Ql (U) Negative Normal [facility]; [facility] Work Phone: Nitrite Ql (U) Negative Normal [facility] Work Phone: Nitrite Ql (U) Negative Normal [facility]; [facility] Work Phone: pH (U) 8.0 [pH] Normal [facility] Work Phone: Protein Ql (U) Negative Normal [facility] Work Phone: Protein Ql (U) Negative Normal [facility]; [facility] Work Phone: Specific gravity (U) [Rel density] 1.015 1 Normal [facility] Work Phone: Urobilinogen (24H U) [Mass/Time] Normal Normal [facility] Work Phone: Urinalysis, Office ([id number])Or dered By: Aspen Sandy on 07-10-2012 Bilirubin Ql (U) Negative Normal [facility] Work Phone: Bilirubin Ql (U) Negative Normal [facility]; [facility] Work Phone: Glucose Test strip (U) [Mass/Vol] Negative Normal [facility] Work Phone: Glucose Test strip (U) [Mass/Vol] Negative Normal [facility]; [facility] Work Phone: Hemoglobin Ql (U) Hemolyzed Large Normal Co [facility] Work Phone: Ketones Ql (U) Negative Normal [facility] Work Phone: Ketones Ql (U) Negative Normal [facility]; [facility] Work Phone: Leukocyte esterase Test strip Ql (U) Large Normal [facility] Work Phone: Nitrite Ql (U) Positive Normal [facility] Work Phone: Nitrite Ql (U) Positive Normal [facility]; [facility] Work Phone: pH (U) 7.0 [pH] Normal [facility] Work Phone: Protein Ql (U) 30 mg/dL Normal [facility] Work Phone: Specific gravity (U) [Rel density] 1.020 1 Normal [facility] Work Phone: Urobilinogen (24H U) [Mass/Time] Normal Normal [facility] Work Phone: BC CULTURE-OTHER ([id number])Ord ered By: Brief Writer on 11-12-2010 Bacteria identified Respiratory culture Nom (Unsp spec) Final report Normal [facility] Work Phone: Comment on above: PATIENT NOT FASTINGP ERFORMED BY: MEHRDAD LabGlyGenix TherapeuticsThe Valley HospitalNkwvwi993[address] [place] [address] [id number] Information: SRC:RONY [id number] Bacteria identified Respiratory culture Nom (Unsp spec) RRF Normal [facility] Work Phone: Comment on above: Routine respiratory néstor PATIENT NOT FASTINGP ERFORMED BY: MEHRDAD LabGlyGenix TherapeuticsThe Valley HospitalRqedyi364[address] [place] [address] [id number] Information: SRC:RONY [id number] Rapid Strep Test, Office ([phone])Ordered By: Amina Cerna on 11-12-2010 S. pyogenes Ag EIA Ql (Throat) Negative Normal [facility]; [facility] Work Phone: S. pyogenes Ag IA Ql (Unsp spec) Negative Normal [facility] Work Phone: CBC with manual diff (79229) Ordered By: Jenni Otoole on 01-19-2009 Basophils (Bld) [#/Vol] 0.1 {x10E3/uL} Normal 0.0-0.2 [facility] Work Phone: Comment on above: PATIENT NOT FASTINGC linical Information: ADD 636196, [id number] PERFORMED BY: MEHRDAD LabGlyGenix Therapeutics Flnnnx4962 [facility] [id number] Basophils (Bld) [#/Vol] 0.1 10*3/uL Normal 0.0-0.2 [facility]; [facility] Work Phone: Comment on above: PATIENT NOT FASTINGC linical Information: ADD 360053, [id number] PERFORMED BY: LabGlyGen[facility] Therapeutics Gnrwws4228 [facility] [id number] Basophils/100 WBC (Bld) 1 % Normal 0-3 [facility] Work Phone: Comment on above: PATIENT NOT FASTINGC linical Information: ADD 227783, [id number] PERFORMED BY: [facility] Hdvvog3318 [facility] [id number] Eosinophils (Bld) [#/Vol] 0.1 {x10E3/uL} Normal 0.0-0.4 [facility] Work Phone: Comment on above: PATIENT NOT FASTINGC linical Information: ADD 805282, [id number] PERFORMED BY: LabTracey [place] [id number] [facility] [id number] Eosinophils (Bld) [#/Vol] 0.1 10*3/uL Normal 0.0-0.4 [facility]; [facility] Work Phone: Comment on above: PATIENT NOT FASTINGC linical Information: ADD 156934, [id number] PERFORMED BY: LabTrace[place] [id number] [facility] [id number] Eosinophils/100 WBC (Bld) 1 % Normal 0-7 [facility] Work Phone: Comment on above: PATIENT NOT FASTINGC linical Information: ADD 342724, [id number] PERFORMED BY: LabTrace[place] [id number] [facility] [id number] Erythrocyte distribution width (RBC) [Ratio] 13.1 % Normal 11.7-15.0 [facility] Work Phone: Comment on above: PATIENT NOT FASTINGC linical Information: ADD 169769, [id number] PERFORMED BY: Lab[place] [id number] [facility] [id number] Hematocrit (Bld) [Volume fraction] 41.9 % Normal 34.0-44.0 [facility] Work Phone: Comment on above: PATIENT NOT FASTINGC linical Information: ADD 006555, [id number] PERFORMED BY: Lab[place] [id number] [facility] [id number] Hemoglobin (Bld) [Mass/Vol] 14.7 g/dL Normal 11.5-15.0 [facility] Work Phone: Comment on above: PATIENT NOT FASTINGC linical Information: ADD 211104, [id number] PERFORMED BY: [facility]6370 [facility] [id number] Lymphocytes (Bld) [#/Vol] 1.8 {x10E3/uL} Normal 0.7-4.5 [facility] Work Phone: Comment on above: PATIENT NOT FASTINGC linical Information: ADD 635596, [id number] PERFORMED BY: [place] [id number] [facility] [id number] Lymphocytes (Bld) [#/Vol] 1.8 10*3/uL Normal 0.7-4.5 [facility]; [facility] Work Phone: Comment on above: PATIENT NOT FASTINGC linical Information: ADD 260551, [id number] PERFORMED BY: Lab[place] [id number] [facility] [id number] Lymphocytes/100 WBC (Bld) 23 % Normal 14-46 [facility] Work Phone: Comment on above: PATIENT NOT FASTINGC linical Information: ADD 718491, [id number] PERFORMED BY: Lab[place] [id number] [facility] [id number] MCH (RBC) [Entitic mass] 33.5 pg Normal 27.0-34.0 [facility] Work Phone: Comment on above: PATIENT NOT FASTINGC linical Information: ADD 834829, [id number] PERFORMED BY: LabMcl[facility] Hospital6370 [facility] [id number] MCHC (RBC) [Mass/Vol] 35.1 g/dL Normal 32.0-36.0 [facility] Work Phone: Comment on above: PATIENT NOT FASTINGC linical Information: ADD 482767, [id number] PERFORMED BY: Lab[place] [id number] [facility] [id number] MCV (RBC) [Entitic vol] 96 fL Normal 80-98 [facility] Work Phone: Comment on above: PATIENT NOT FASTINGC linical Information: ADD 775705, [id number] PERFORMED BY: [facility] Strzvw4870 [facility] [place] [id number] Monocytes (Bld) [#/Vol] 0.6 {x10E3/uL} Normal 0.1-1.0 [facility] Work Phone: Comment on above: PATIENT NOT FASTINGC linical Information: ADD 816376, [id number] PERFORMED BY: [facility] Aaxcfu9673 [facility] [id number] Monocytes (Bld) [#/Vol] 0.6 10*3/uL Normal 0.1-1.0 [facility]; [facility] Work Phone: Comment on above: PATIENT NOT FASTINGC linical Information: ADD 162486, [id number] PERFORMED BY: [facility] Mbnihn7979 [facility] [id number] Monocytes/100 WBC (Bld) 8 % Normal 4-13 [facility] Work Phone: Comment on above: PATIENT NOT FASTINGC linical Information: ADD 050615, [id number] PERFORMED BY: [facility] Wnbtft8763 [facility] [id number] Neutrophils (Bld) [#/Vol] 5.2 {x10E3/uL} Normal 1.8-7.8 [facility] Work Phone: Comment on above: PATIENT NOT FASTINGC linical Information: ADD 306615, [id number] PERFORMED BY: [facility] Kiqxvm5900 [facility] [id number] Neutrophils (Bld) [#/Vol] 5.2 10*3/uL Normal 1.8-7.8 [facility]; [facility] Work Phone: Comment on above: PATIENT NOT FASTINGC linical Information: ADD 765201, [id number] PERFORMED BY: [facility] Wgonvg4163 [facility] [id number] Neutrophils/100 WBC (Bld) 67 % Normal 40-74 [facility] Work Phone: Comment on above: PATIENT NOT FASTINGC linical Information: ADD 498791, [id number] PERFORMED BY: MEHRDAD [facility] K[address]fq[address] [facility] [place] [id number] Platelets (Bld) [#/Vol] 223 {x10E3/uL} Normal 140-415 [facility] Work Phone: Comment on above: PATIENT NOT FASTINGC linical Information: ADD 177487, [id number] PERFORMED BY: [facility] Vxtduw[address] [facility] [place] [id number] Platelets (Bld) [#/Vol] 223 10*3/uL Normal 140-415 [facility]; [facility] Work Phone: Comment on above: PATIENT NOT FASTINGC linical Information: ADD 983568, [id number] PERFORMED BY: MEHRDAD [facility] Uzmdvz7786 [facility] [id number] RBC (Bld) [#/Vol] 4.38 {x10E6/uL} Normal 3.80-5.10 [facility] Work Phone: Comment on above: PATIENT NOT FASTINGC linical Information: ADD 810545, [id number] PERFORMED BY: MEHRDAD [facility] Lprpzy6365 [facility] [id number] RBC (Bld) [#/Vol] 4.38 10*6/uL Normal 3.80-5.10 [facility]; [facility] Work Phone: Comment on above: PATIENT NOT FASTINGC linical Information: ADD 598457, [id number] PERFORMED BY: [facility] Lrjvjj7959 [facility] [place] [id number] WBC (Bld) [#/Vol] 7.8 {x10E3/uL} Normal 4.0-10.5 [facility] Work Phone: Comment on above: PATIENT NOT FASTINGC linical Information: ADD 524120, [id number] PERFORMED BY: [facility] Ibaegc0675 [facility] [id number] WBC (Bld) [#/Vol] 7.8 10*3/uL Normal 4.0-10.5 [facility]; [facility] Work Phone: Comment on above: PATIENT NOT FASTINGC linical Information: ADD 818548, [id number] PERFORMED BY: CB [facility] Xueamc5983 Etienne RoadEcu Healthin [place] [id number] Metabolic Panel, Comprehensi ve (40810)Ordered By: Jenni Otoole on 01-19-2009 Albumin [Mass/Vol] 4.7 g/dL Normal 3.5-5.5 [facility] Work Phone: Comment on above: PATIENT NOT FASTINGP ERFORMED BY: CB [facility] Hwqbtm2978 [address] RoadC[facility] [id number] Albumin/Globulin [Mass ratio] 1.7 {ratio} Normal 1.1-2.5 [facility] Work Phone: Comment on above: PATIENT NOT FASTINGP ERFORMED BY: CB [facility] Hzohob9062 Etienne RoadEcu Healthin [place] [id number] ALP [Catalytic activity/Vol] 63 [iU]/L Normal 25-150 [facility] Work Phone: Comment on above: PATIENT NOT FASTINGP ERFORMED BY: CB [facility] Ytmrpm8456 [address] RoadDublin [place] [id number] ALP [Catalytic activity/Vol] 63 U/L Normal 25-150 [facility]; [facility] Work Phone: Comment on above: PATIENT NOT FASTINGP ERFORMED BY: CB [facility] Byrznw2933 [address] RoadDublin [place] [id number] ALT [Catalytic activity/Vol] 11 [iU]/L Normal 0-40 [facility] Work Phone: Comment on above: PATIENT NOT FASTINGP ERFORMED BY: CB [facility] Rmusly8472 [address] RoadDublin [place] [id number] ALT [Catalytic activity/Vol] 11 U/L Normal 0-40 [facility]; [facility] Work Phone: Comment on above: PATIENT NOT FASTINGP ERFORMED BY: CB [facility] Vptlso6739 [address] RoadDublin [place] [id number] AST [Catalytic activity/Vol] 18 [iU]/L Normal 0-40 [facility] Work Phone: Comment on above: PATIENT NOT FASTINGP ERFORMED BY: CB [facility] Dswebk2300 [address] RoadDublin [place] [id number] AST [Catalytic activity/Vol] 18 U/L Normal 0-40 [facility]; [facility] Work Phone: Comment on above: PATIENT NOT FASTINGP ERFORMED BY: CB [facility] Slwqmd1019 [address] RoadDublin [place] [id number] Bilirubin [Mass/Vol] 0.7 mg/dL Normal 0.1-1.2 Comp rehensive [facility] Work Phone: Comment on above: PATIENT NOT FASTINGP ERFORMED BY: CB [facility] Drajnh2031 [address] RoadEcu Healthin [place] [id number] Calcium [Mass/Vol] 10.0 mg/dL Normal 8.5-10.6 [facility] Work Phone: Comment on above: PATIENT NOT FASTINGP ERFORMED BY: CB [facility] Xnyvmi5247 [address] RoadCone [facility] [id number] Chloride [Moles/Vol] 100 mmol/L Normal 97-108 Comp [facility]erensive [facility] Work Phone: Comment on above: PATIENT NOT FASTINGP ERFORMED BY: CB [facility] Opqmgr1140 [address] RoadEcu Healthin [place] [id number] CO2 [Moles/Vol] 23 mmol/L Normal 20-32 [facility] Work Phone: Comment on above: PATIENT NOT FASTINGP ERFORMED BY: CB [facility] Ayzcpn8804 [address] Roadblin [place] [id number] Creatinine [Mass/Vol] 1.03 mg/dL Abnormal 0.57-1.00 [facility] Work Phone: Comment on above: PATIENT NOT FASTINGP ERFORMED BY: CB [facility] Lmwroi1622 [address] RoadDublin [place] [id number] GFR/1.73 sq M predicted among blacks MDRD (S/P/Bld) [Vol rate/Area] mL/min/{1.73_m2} Normal [facility] Work Phone: Comment on above: Note: Persistent red uction for 3 months or more in an eGFR<60 mL/min/1.73 m2 defines CKD. Patients with eGFR values>/=60 mL/min/1.73 m2 may also have CKD if evidence of persistentproteinuria is present. Additional information may be found [email or web address]. PATIENT NOT FASTINGP ERFORMED BY: [facility] Zcmmlz4263 [address] [facility] [id number] GFR/1.73 sq M.predicted MDRD (S/P/Bld) [Vol rate/Area] mL/min/{1.73_m2} Normal [facility] Work Phone: Comment on above: PATIENT NOT FASTINGP ERFORMED BY: [facility] Iazrfm0982 [facility] [id number] Globulin (S) [Mass/Vol] 2.7 g/dL Normal 1.5-4.5 [facility] Work Phone: Comment on above: PATIENT NOT FASTINGP ERFORMED BY: [facility] Wojxnj9193 [facility] [id number] Glucose [Mass/Vol] 89 mg/dL Normal 65-99 [facility] Work Phone: Comment on above: PATIENT NOT FASTINGP ERFORMED BY: [facility] Oktgbs[address] [facility] [place] [id number] Potassium [Moles/Vol] 3.9 mmol/L Normal 3.5-5.2 [facility] Work Phone: Comment on above: PATIENT NOT FASTINGP ERFORMED BY: CB [facility] Mybvjv1429 [address] [facility] [id number] Protein [Mass/Vol] 7.4 g/dL Normal 6.0-8.5 Compre hensive [facility] Work Phone: Comment on above: PATIENT NOT FASTINGP ERFORMED BY: CB [facility] Wnqqeg6988 [address] [place] [facility] DairyC[facility] Al[facility] [id number] Sodium [Moles/Vol] 139 mmol/L Normal 135-145 Compre hensive [facility] Work Phone: Comment on above: PATIENT NOT FASTINGP ERFORMED BY: CB [facility] Eacwwp6225 [address] [place] [facility] DairyC[facility] [id number] Urea nitrogen [Mass/Vol] 7 mg/dL Normal 5- [facility] Work Phone: Comment on above: PATIENT NOT FASTINGP ERFORMED BY: CB [facility] Objxli3927 [address] [facility]ScaleCritical [facility] hospital [id number] Urea nitrogen/Creatinine [Mass ratio] 7 mg/mg Abnormal - [facility] Work Phone: Comment on above: PATIENT NOT FASTINGP ERFORMED BY: CB [facility] Ugvcaj8901 [address] [place] [facility] DairyCone Health [facility] [id number] Urinalysis, Office (02532)Or dered By: Barbara Sheets on 01-19-2009 Bilirubin Ql (U) Negative Normal Com[facility] ns[facility] Work Phone: Bilirubin Ql (U) Negative Normal Compre[facility] ns[facility]; [facility] Work Phone: Glucose Test strip (U) [Mass/Vol] Negative Normal [facility] Work Phone: Glucose Test strip (U) [Mass/Vol] Negative Normal [facility]; [facility] Work Phone: Hemoglobin Ql (U) Hemolyzed Small Normal Co mprehensive [facility] Work Phone: Ketones Ql (U) Small Normal Comprehens [facility] Work Phone: Leukocyte esterase Test strip Ql (U) Negative Normal [facility] Work Phone: Comment on above: aw Leukocyte esterase Test strip Ql (U) Negative Normal [facility]; [facility] Work Phone: Comment on above: aw Nitrite Ql (U) Negative Normal Comprehens [facility] Work Phone: Nitrite Ql (U) Negative Normal Comprehens [facility]; [facility] Work Phone: pH (U) 6.0 [pH] Normal [facility] Work Phone: Protein Ql (U) Negative Normal Comprehens [facility] Work Phone: Protein Ql (U) Negative Normal Comprehens [facility]; [facility] Work Phone: Specific gravity (U) [Rel density] 1.005 1 Normal [facility] Work Phone: Urobilinogen (24H U) [Mass/Time] Normal Normal [facility] Work Phone: Urine Test, Office (39403)Ordered By: Barbara Sheets on 01-19-2009 Beta HCG ( test) Ql (U) Negative Normal [facility] Work Phone: Comment on above: aw Urine Test, Office (86099) Negative Normal [facility]; [facility] Work Phone: Comment on above: aw Rapid Flu (48100 x 2)Ordered By: Barbara Sheets on 08-20-2007 FLUAV Ag IA Ql (Throat) Positive Normal [facility] Work Phone: Comment on above: Influenza B-AW Positive FLUAV Ag IA Ql (Throat) Positive Normal [facility]; [facility] Work Phone: Comment on above: Influenza B-AW Positive Rapid Strep Test, Office (72 260)Ordered By: Barbara Sheets on 08-20-2007 S. pyogenes Ag EIA Ql (Throat) Negative Normal [facility]; [facility] Work Phone: Comment on above: aw S. pyogenes Ag IA Ql (Unsp spec) Negative Normal [facility] Work Phone: Comment on above: aw Urinalysis, Office (79160)Or dered By: Arlyn Singer on 01-03-2007 Bilirubin Ql (U) Negative Normal Comprehe nsive [facility] Work Phone: Bilirubin Ql (U) Negative Normal Comprehe nsive [facility]; [facility] Work Phone: Glucose Test strip (U) [Mass/Vol] Negative Normal [facility] Work Phone: Glucose Test strip (U) [Mass/Vol] Negative Normal [facility]; [facility] Work Phone: Hemoglobin Ql (U) Negative Normal [facility] Work Phone: Hemoglobin Ql (U) Negative Normal [facility]; [facility] Work Phone: Ketones Ql (U) Negative Normal [facility] Work Phone: Ketones Ql (U) Negative Normal [facility]; [facility] Work Phone: Leukocyte esterase Test strip Ql (U) Negative Normal [facility] Work Phone: Leukocyte esterase Test strip Ql (U) Negative Normal [facility]; [facility] Work Phone: Nitrite Ql (U) Negative Normal [facility] Work Phone: Nitrite Ql (U) Negative Normal [facility]; [facility] Work Phone: pH (U) 5.0 [pH] Normal [facility] Work Phone: Protein Ql (U) Negative Normal [facility] Work Phone: Protein Ql (U) Negative Normal [facility]; [facility] Work Phone: Urobilinogen (24H U) [Mass/Time] 2 mg/dL Normal [facility] Work Phone: Urine Test, Office ([id number])Ordered By: Arlyn Singer on 01-03-2007 Beta HCG ( test) Ql (U) Negative Normal [facility] Work Phone: Beta HCG ( test) Ql (U) Negative Normal [facility]; [facility] Work Phone: Vital Signs Date Time Vital Sign Value Performing Clinician Facility 02-24-2023 10:45-0400 Body height 162.56 cm ALEJANDRA Teixeira LPN [facility]; [facility] Work Phone: 02-24-2023 10:45-0400 Body mass index (BMI) [Ratio] 29.7 kg/m2 ALEJANDRA Teixeira BUSINESS TRAVEL CONSULT[employer] [facility]; [facility] Work Phone: 02-24-2023 10:45-0400 Body surface area Derived from formula 1.84 m2 ALEJANDRA Teixeira YUDITH [facility]; [facility] Work Phone: 02-24-2023 10:45-0400 Body temperature 97.9 [degF] ALEJANDRA Teixeira LPN [facility]; [facility] Work Phone: Comment on above: Method: Temporal 02-24-2023 10:45-0400 Body weight 78.47 kg ALEJANDRA Teixeira BUSINESS TRAVEL CONSULTANT [facility]; [facility] Work Phone: 02-24-2023 10:45-0400 Diastolic blood pressure 74 mm[Hg] ALEJANDRA Teixeira YUDITH [facility]; [facility] Work Phone: Comment on above: Patient Position: Si tting; Cuff Location: Left Arm; Cuff Size: Standard 02-24-2023 10:45-0400 Heart rate 80 /min ALEJANDRA Teixeira BUSINESS TRAVEL CONSULTANT [facility]; [facility] Work Phone: Comment on above: Pattern: Regular 02-24-2023 10:45-0400 Respiratory rate 18 /min ALEJANDRA Teixeira YUDITH [facility]; [facility] Work Phone: Comment on above: Pattern: Unlabored 02-24-2023 10:45-0400 SaO2% (BldA) [Mass fraction] 98 % ALEJANDRA Teixeira BUSINESS TRAVEL CONSULTANT [facility]; [facility] Work Phone: Comment on above: Room air 02-24-2023 10:45-0400 Systolic blood pressure 110 mm[Hg] ALEJANDRA Teixeira BUSINESS TRAVEL CONSULTANT [facility]; [facility] Work Phone: Comment on above: Patient Position: Si tting; Cuff Location: Left Arm; Cuff Size: Standard 01-27-2023 12:24-0400 Body height 162.56 cm [facility]; [facility] Work Phone: 01-27-2023 12:24-0400 Body mass index (BMI) [Ratio] 29.7 kg/m2 [facility]; [facility] Work Phone: 01-27-2023 12:24-0400 Body surface area Derived from formula 1.84 m2 [facility]; [facility] Work Phone: 01-27-2023 12:24-0400 Body weight 78.47 kg [facility]; [facility] Work Phone: 01-27-2023 12:24-0400 Diastolic blood pressure 73 mm[Hg] [facility]; [facility] Work Phone: Comment on above: Patient Position: Si tting; Cuff Location: Left Arm; Cuff Size: Standard 01-27-2023 12:24-0400 Systolic blood pressure 118 mm[Hg] [facility]; [facility] Work Phone: Comment on above: Patient Position: Si tting; Cuff Location: Left Arm; Cuff Size: Standard 12-18-2022 20:08-0400 Body height 162.56 cm [facility]; [facility] Work Phone: Comment on above: virtual 12-18-2022 20:08-0400 Body mass index (BMI) [Ratio] 30.92 kg/m2 Lilia Slarb [facility]; [facility] Work Phone: Comment on above: virtual 12-18-2022 20:08-0400 Body surface area Derived from formula 1.87 m2 Lilia Slarb [facility]; [facility] Work Phone: Comment on above: virtual 12-18-2022 20:08-0400 Body weight 81.7 kg Lilia Slarb [facility]; [facility] Work Phone: Comment on above: virtual 12-18-2022 20:08-0400 Diastolic blood pressure 72 mm[Hg] Lilia Slapaulette MAYN [facility]; [facility] Work Phone: Comment on above: Patient Position: Si tting; Cuff Location: Left Arm; Cuff Size: Standard virtual 12-18-2022 20:08-0400 Systolic blood pressure 118 mm[Hg] Lilia Slapaulette MAYN [facility]; [facility] Work Phone: Comment on above: Patient Position: Si tting; Cuff Location: Left Arm; Cuff Size: Standard virtual 10-19-2022 08:59-0400 Body height 162.56 cm Mandi Paz LPN [facility]; [facility] Work Phone: 10-19-2022 08:59-0400 Body mass index (BMI) [Ratio] 30.06 kg/m2 Mandi Paz LPN [facility]; [facility] Work Phone: 10-19-2022 08:59-0400 Body surface area Derived from formula 1.85 m2 Mandi Paz LPN [facility]; [facility] Work Phone: 10-19-2022 08:59-0400 Body temperature 98.3 [degF] Mandi Paz LPN [facility]; [facility] Work Phone: 10-19-2022 08:59-0400 Body weight 79.44 kg Mandi Paz LPN [facility]; [facility] Work Phone: 10-19-2022 08:59-0400 Diastolic blood pressure 88 mm[Hg] Mandi Paz LPN [facility]; [facility] Work Phone: Comment on above: Patient Position: Si tting; Cuff Location: Left Arm; Cuff Size: Standard 10-19-2022 08:59-0400 Heart rate 79 /min Mandi Paz LPN [facility]; [facility] Work Phone: Comment on above: Pattern: Regular 10-19-2022 08:59-0400 Respiratory rate 16 /min Mandi Paz LPN [facility]; [facility] Work Phone: Comment on above: Pattern: Unlabored 10-19-2022 08:59-0400 SaO2% (BldA) [Mass fraction] 98 % Mandi Paz YUDITH [facility]; [facility] Work Phone: Comment on above: Room air 10-19-2022 08:59-0400 Systolic blood pressure 128 mm[Hg] Mandi Paz YUDITH [facility]; [facility] Work Phone: Comment on above: Patient Position: Si tting; Cuff Location: Left Arm; Cuff Size: Standard 07-19-2022 11:20-0500 Body temperature 97.9 [degF] [facility] 07-19-2022 11:20-0500 Diastolic blood pressure 73 mm[Hg] [facility] 07-19-2022 11:20-0500 Heart rate 78 /min [facility] 07-19-2022 11:20-0500 Respiratory rate 18 /min [facility] 07-19-2022 11:20-0500 SaO2% (BldA) [Mass fraction] 99 % [facility] 07-19-2022 11:20-0500 Systolic blood pressure 129 mm[Hg] [facility] 07-19-2022 09:23-0500 Body height 162.56 cm [facility] 07-19-2022 09:23-0500 Body mass index (BMI) [Ratio] 26.2 kg/m2 [facility] 07-19-2022 09:23-0500 Body weight 69.39 kg [facility] 06-29-2022 09:11-0500 Body weight 68.95 kg James Muller [facility]; [facility] Work Phone: 05-18-2022 09:07-0500 Body height 162.56 cm Ruby [facility]; [facility] Work Phone: 05-18-2022 09:07-0500 Body mass index (BMI) [Ratio] 25.23 kg/m2 Ruby [facility]; [facility] Work Phone: 05-18-2022 09:07-0500 Body surface area Derived from formula 1.72 m2 Ruby Kerr [facility]; [facility] Work Phone: 05-18-2022 09:07-0500 Body weight 66.68 kg Ruby Kerr [facility]; [facility] Work Phone: 04-20-2022 11:07-0500 Body weight 69.85 kg Shelby Dany DO Work Phone: [facility]; [facility] Work Phone: 04-20-2022 11:07-0500 Diastolic blood pressure 80 mm[Hg] Shelby Dany DO Work Phone: [facility]; [facility] Work Phone: Comment on above: Patient Position: Si tting 04-20-2022 11:07-0500 Systolic blood pressure 122 mm[Hg] Shelby Donaldsonon DO Work Phone: [facility]; [facility] Work Phone: Comment on above: Patient Position: Si tting 04-06-2022 09:52-0400 Body height 162.56 cm [facility] Work Phone: 04-06-2022 09:52-0400 Body mass index (BMI) [Ratio] 26.61 kg/m2 James [facility]; [facility] Work Phone: 04-06-2022 09:52-0400 Body surface area Derived from formula 1.76 m2 [facility]; [facility] Work Phone: 04-06-2022 09:52-0400 Body weight 70.31 kg [facility]; [facility] Work Phone: 04-06-2022 09:52-0400 Diastolic blood pressure 80 mm[Hg[facility]; [facility] Work Phone: Comment on above: Patient Position: Si tting; Cuff Location: Left Arm; Cuff Size: Standard 04-06-2022 09:52-0400 Systolic blood pressure 121 mm[Hg] James Muller [facility]; [facility] Work Phone: Comment on above: Patient Position: Si tting; Cuff Location: Left Arm; Cuff Size: Standard 03-23-2022 11:20-0400 Body height 162.56 cm Ruby Kerr [facility]; [facility] Work Phone: 03-23-2022 11:20-0400 Body mass index (BMI) [Ratio] 27.64 kg/m2 Ruby Kerr [facility]; [facility] Work Phone: 03-23-2022 11:20-0400 Body surface area Derived from formula 1.78 m2 Ruby Kerr [facility]; [facility] Work Phone: 03-23-2022 11:20-0400 Body weight 73.03 kg Rubyadina Kerr [facility]; [facility] Work Phone: 03-23-2022 11:20-0400 Diastolic blood pressure 85 mm[Hg] Ruby Kerr [facility]; [facility] Work Phone: Comment on above: Patient Position: Si tting; Cuff Location: Left Arm; Cuff Size: Standard 03-23-2022 11:20-0400 Systolic blood pressure 112 mm[Hg] Ruby Kerr [facility]; [facility] Work Phone: Comment on above: Patient Position: Si tting; Cuff Location: Left Arm; Cuff Size: Standard 03-09-2022 10:54-0400 Body height 162.56 cm Shelby Dany DO Work Phone: [facility]; [facility] Work Phone: 03-09-2022 10:54-0400 Body mass index (BMI) [Ratio] 28.67 kg/m2 Shelby Dany DO Work Phone: [facility]; [facility] Work Phone: 03-09-2022 10:54-0400 Body surface area Derived from formula 1.81 m2 Shelby Dany DO Work Phone: [facility]; [facility] Work Phone: 03-09-2022 10:54-0400 Body weight 75.75 kg Shelby Dany DO Work Phone: [facility]; [facility] Work Phone: 03-09-2022 10:54-0400 Diastolic blood pressure 80 mm[Hg] Shelby Dany DO Work Phone: [facility]; [facility] Work Phone: Comment on above: Patient Position: [facility] 03-09-2022 10:54-0400 Systolic blood pressure 116 mm[Hg] Shelby Dany DO Work Phone: [facility]; [facility] Work Phone: Comment on above: Patient Position: [facility] 02-23-2022 09:34-0400 Body height 162.56 cm Ruby Gravius [facility]; [facility] Work Phone: Comment on above: no vs taken as this is phone encounter due to covid 02-23-2022 09:34-0400 Body mass index (BMI) [Ratio] 29.7 kg/m2 Ruby Gravius [facility]; [facility] Work Phone: Comment on above: no vs taken as this is phone encounter due to covid 02-23-2022 09:34-0400 Body surface area Derived from formula 1.84 m2 Ruby Gravius [facility]; [facility] Work Phone: Comment on above: no vs taken as this is phone encounter due to covid 02-23-2022 09:34-0400 Body weight 78.47 kg Ruby Gravius [facility]; [facility] Work Phone: Comment on above: no vs taken as this is phone encounter due to covid 02-09-2022 10:27-0400 Body height 162.56 cm Shelby Dany DO Work Phone: [facility]; [facility] Work Phone: 02-09-2022 10:27-0400 Body mass index (BMI) [Ratio] 30.9 kg/m2 Shelby Dany DO Work Phone: [facility]; [facility] Work Phone: 02-09-2022 10:27-0400 Body surface area Derived from formula 1.87 m2 Shelby Dany DO Work Phone: [facility]; [facility] Work Phone: 02-09-2022 10:27-0400 Body weight 81.65 kg Shelby Doanldsonon DO Work Phone: [facility]; [facility] Work Phone: 02-09-2022 10:27-0400 Diastolic blood pressure 70 mm[Hg] Shelby Donaldsonon DO Work Phone: [facility]; [facility] Work Phone: Comment on above: Patient Position: Si tting 02-09-2022 10:27-0400 Heart rate 70 /min Shelby Saenz DO Work Phone: [facility]; [facility] Work Phone: Comment on above: Pattern: Regular 02-09-2022 10:27-0400 Systolic blood pressure 118 mm[Hg] Shelby Donaldsonon DO Work Phone: [facility]; [facility] Work Phone: Comment on above: Patient Position: Si tting 01-06-2022 09:50-0400 Body height 162.56 cm Ruby Gravius [address] [address] [employer] [facility]; [facility] Work Phone: Comment on above: no vs taken as this is phone encounter due to covid 01-06-2022 09:50-0400 Body mass index (BMI) [Ratio] 28.32 kg/m2 Ruby Gravius [facility] [facility] [employer]; [facility] Work Phone: Comment on above: no vs taken as this is phone encounter due to covid 01-06-2022 09:50-0400 Body surface area Derived from formula 1.8 m2 Ruby Kerr [facility]; [facility] Work Phone: Comment on above: no vs taken as this is phone encounter due to covid 01-06-2022 09:50-0400 Body temperature 97.3 [degF] Ruby Kerr [facility]; [facility] Work Phone: Comment on above: Method: Infrared no vs taken as this is phone encounter due to covid 01-06-2022 09:50-0400 Body weight 74.84 kg Ruby Kerr [facility]; [facility] Work Phone: Comment on above: no vs taken as this is phone encounter due to covid 08-06-2021 11:17-0500 Body height 162.56 cm Shelby Dany DO Work Phone: [facility]; [facility] Work Phone: Comment on above: partial vitals repor jacques by patient due to virtual viist 08-06-2021 11:17-0500 Body mass index (BMI) [Ratio] 28.32 kg/m2 Shelby Dany DO Work Phone: [facility]; [facility] Work Phone: Comment on above: partial vitals repor jacques by patient due to virtual viist 08-06-2021 11:17-0500 Body surface area Derived from formula 1.8 m2 Shelby Dany DO Work Phone: [facility]; [facility] Work Phone: Comment on above: partial vitals repor jacques by patient due to virtual viist 08-06-2021 11:17-0500 Body weight 74.84 kg Shelby Dany DO Work Phone: [facility]; [facility] Work Phone: Comment on above: partial vitals repor jacques by patient due to virtual viist 08-06-2021 11:17-0500 Diastolic blood pressure 70 mm[Hg] Shelby Donaldsonon DO Work Phone: [facility]; [facility] Work Phone: Comment on above: Patient Position: Si tting partial vitals repor jacques by patient due to virtual viist 08-06-2021 11:17-0500 Heart rate 70 /min Shelby Donaldsonon DO Work Phone: [facility]; [facility] Work Phone: Comment on above: Pattern: Regular partial vitals repor jacques by patient due to virtual viist 08-06-2021 11:17-0500 Systolic blood pressure 114 mm[Hg] Shelby Donaldsonon DO Work Phone: [facility]; [facility] Work Phone: Comment on above: Patient Position: Si tting partial vitals repor jacques by patient due to virtual viist 04-23-2021 13:59-0500 Body height 162.56 cm Lilia Alexandre LPN [facility]; [facility] Work Phone: Comment on above: pt did not report 04-23-2021 13:59-0500 Body mass index (BMI) [Ratio] 28.32 kg/m2 Lilia Alexandre LPN [facility]; [facility] Work Phone: Comment on above: pt did not report 04-23-2021 13:59-0500 Body surface area Derived from formula 1.8 m2 Lilia Alexandre LPN [facility]; [facility] Work Phone: Comment on above: pt did not report 04-23-2021 13:59-0500 Body weight 74.84 kg Lilia Bettie ZURITA [facility]; [facility] Work Phone: Comment on above: pt did not report 03-26-2021 10:20-0400 Body height 162.56 cm Rosa Elena Pickard MA [facility]; [facility] Work Phone: 03-26-2021 10:20-0400 Body mass index (BMI) [Ratio] 28.32 kg/m2 Rosa Elena Pickard MA [facility]; [facility] Work Phone: 03-26-2021 10:20-0400 Body surface area Derived from formula 1.8 m2 Rosa Elena Pickard MA [facility]; [facility] Work Phone: 03-26-2021 10:20-0400 Body temperature 97.1 [degF] Rosa Elena Pickard MA [facility]; [facility] Work Phone: Comment on above: Method: Temporal 03-26-2021 10:20-0400 Body weight 74.84 kg Rosa Elena Pickard MA [facility]; [facility] Work Phone: 03-26-2021 10:20-0400 Diastolic blood pressure 80 mm[Hg] Rosa Elena Pickard MA [facility]; [facility] Work Phone: Comment on above: Patient Position: Si tting; Cuff Location: Left Arm; Cuff Size: Standard 03-26-2021 10:20-0400 Heart rate 61 /min Rosa Elena Pickard MA [facility]; [facility] Work Phone: Comment on above: Pattern: Regular 03-26-2021 10:20-0400 Respiratory rate 17 /min Rosa Elena Pickard MA [facility]; [facility] Work Phone: Comment on above: Pattern: Unlabored 03-26-2021 10:20-0400 SaO2% (BldA) [Mass fraction] 98 % Rosa Elena Pickard MA [facility]; [facility] Work Phone: Comment on above: Room air 03-26-2021 10:20-0400 Systolic blood pressure 116 mm[Hg] Rosa Elena Pickard MA [facility]; [facility] Work Phone: Comment on above: Patient Position: Si tting; Cuff Location: Left Arm; Cuff Size: Standard 08-23-2019 11:39-0400 BMI (Body Mass Index) 27.98 kg/m2 Ruby Kerr [facility] Work Phone: Comment on above: not able to obtain v itals as this is a virtual visit due to blue viurs outbreak 08-23-2019 11:39-0400 Body weight 73.94 kg Ruby Kerr [facility] Work Phone: Comment on above: not able to obtain v itals as this is a virtual visit due to blue viurs outbreak 08-23-2019 11:39-0400 BSA (Body Surface Area) 1.79 m2 Ruby Kerr [facility] Work Phone: Comment on above: not able to obtain v itals as this is a virtual visit due to blue viurs outbreak 08-23-2019 11:39-0400 Height 162.56 cm Ruby Kerr [facility] Work Phone: Comment on above: not able to obtain v itals as this is a virtual visit due to blue viurs outbreak 01-26-2017 10:48-0400 BMI (Body Mass Index) 27.98 kg/m2 Wendy Hernández RN [facility] Work Phone: 01-26-2017 10:48-0400 Body weight 73.94 kg Wendy Hernández RN [facility] Work Phone: 01-26-2017 10:48-0400 BP Diastolic 82 mm[Hg] Wendy Hernández RN [facility] Work Phone: Comment on above: Patient Position: Si tting; Cuff Location: Left Arm; Cuff Size: Large 01-26-2017 10:48-0400 BP Systolic 104 mm[Hg] Wendy Hernández RN [facility] Work Phone: Comment on above: Patient Position: Si tting; Cuff Location: Left Arm; Cuff Size: Large 01-26-2017 10:48-0400 BSA (Body Surface Area) 1.79 m2 Wendy Hernández RN [facility] Work Phone: 01-26-2017 10:48-0400 Height 162.56 cm Wendy Hernández RN [facility] Work Phone: 01-26-2017 10:48-0400 Pulse (Heart Rate) 67 /min Wendy Hernández RN [facility] Work Phone: Comment on above: Pattern: Regular 01-26-2017 10:48-0400 Pulse Oximetry 97 % Shelby Saenz [facility] Work Phone: Comment on above: Room air 01-26-2017 10:48-0400 Respiratory Rate 18 /min Wendy Hernández RN [facility] Work Phone: Comment on above: Pattern: Unlabored 01-26-2017 10:48-0400 SaO2% (BldA) [Mass fraction] 97 % Wendy Hernández RN [facility]; [facility] Work Phone: Comment on above: Room air 07-11-2016 09:35-0500 BMI (Body Mass Index) 27.64 kg/m2 Lilia Slarb BUSINESS TRAVEL CONSULTANT [facility] Work Phone: 07-11-2016 09:35-0500 Body Temperature 98.1 [degF] Lilia Slarb BUSINESS TRAVEL CONSULTANT [facility] Work Phone: 07-11-2016 09:35-0500 Body weight 73.03 kg Lilia Slarb BUSINESS TRAVEL CONSULTANT [facility] Work Phone: 07-11-2016 09:35-0500 BP Diastolic 76 mm[Hg] Lilia Slarb BUSINESS TRAVEL CONSULTANT [facility] Work Phone: Comment on above: Patient Position: Si tting; Cuff Location: Left Arm; Cuff Size: Standard 07-11-2016 09:35-0500 BP Systolic 116 mm[Hg] Lilia Slarb BUSINESS TRAVEL CONSULTANT [facility] Work Phone: Comment on above: Patient Position: Si tting; Cuff Location: Left Arm; Cuff Size: Standard 07-11-2016 09:35-0500 BSA (Body Surface Area) 1.78 m2 Lilia Slarb BUSINESS TRAVEL CONSULTANT [facility] Work Phone: 07-11-2016 09:35-0500 Height 162.56 cm Lilia Slarb BUSINESS TRAVEL CONSULTANT [facility] Work Phone: 07-11-2016 09:35-0500 Pulse (Heart Rate) 67 /min Lilia Slarb BUSINESS TRAVEL CONSULTANT [facility] Work Phone: Comment on above: Pattern: Regular 07-11-2016 09:35-0500 Pulse Oximetry 98 % Shelby Dany [facility] Work Phone: Comment on above: Room air 07-11-2016 09:35-0500 Respiratory Rate 16 /min Lilia Alexandre LPN [facility] Work Phone: Comment on above: Pattern: Unlabored 07-11-2016 09:35-0500 SaO2% (BldA) [Mass fraction] 98 % Lilia Alexandre LPN [facility]; [facility] Work Phone: Comment on above: Room air 02-25-2016 09:33-0400 BMI (Body Mass Index) 25.24 kg/m2 Wendy Hernández RN [facility] Work Phone: 02-25-2016 09:33-0400 Body weight 66.71 kg Wendy Hernández RN [facility] Work Phone: 02-25-2016 09:33-0400 BP Diastolic 62 mm[Hg] Wendy Hernández RN [facility] Work Phone: Comment on above: Patient Position: Si tting; Cuff Location: Left Arm; Cuff Size: Large 02-25-2016 09:33-0400 BP Systolic 120 mm[Hg] Wendy Hernández RN [facility] Work Phone: Comment on above: Patient Position: Si tting; Cuff Location: Left Arm; Cuff Size: Large 02-25-2016 09:33-0400 BSA (Body Surface Area) 1.72 m2 Wendy Hernández RN [facility] Work Phone: 02-25-2016 09:33-0400 Height 162.56 cm Wendy Hernández RN [facility] Work Phone: 02-25-2016 09:33-0400 Pulse (Heart Rate) 72 /min Wendy Hernández RN [facility] Work Phone: Comment on above: Pattern: Regular 02-25-2016 09:33-0400 Pulse Oximetry 98 % Shelby Dany [facility] Work Phone: Comment on above: Room air 02-25-2016 09:33-0400 Respiratory Rate 18 /min Wendy Hernández RN [facility] Work Phone: Comment on above: Pattern: Unlabored 02-25-2016 09:33-0400 SaO2% (BldA) [Mass fraction] 98 % Wendy Hernández RN [facility]; [facility] Work Phone: Comment on above: Room air 09-15-2014 09:54-0400 BMI (Body Mass Index) 25.24 kg/m2 Aspen Sandy LPN [facility] Work Phone: 09-15-2014 09:54-0400 Body Temperature 97.8 [degF] Aspen Sandy BUSINESS TRAVEL CONSULTANT [facility] Work Phone: Comment on above: Method: Oral 09-15-2014 09:54-0400 Body weight 66.71 kg Aspen Sandy YUDITH [facility] Work Phone: 09-15-2014 09:54-0400 BP Diastolic 72 mm[Hg] Aspen Sandy BUSINESS TRAVEL CONSULTANT [facility] Work Phone: Comment on above: Patient Position: Si tting; Cuff Location: Left Arm; Cuff Size: Standard 09-15-2014 09:54-0400 BP Systolic 118 mm[Hg] Aspen Sandy LPN [facility] Work Phone: Comment on above: Patient Position: Si tting; Cuff Location: Left Arm; Cuff Size: Standard 09-15-2014 09:54-0400 BSA (Body Surface Area) 1.72 m2 Aspen Sandy BUSINESS TRAVEL CONSULTANT [facility] Work Phone: 09-15-2014 09:54-0400 Height 162.56 cm Aspen Sandy YUDITH [facility] Work Phone: 09-15-2014 09:54-0400 Pulse (Heart Rate) 64 /min Aspen Sandy BUSINESS TRAVEL CONSULTANT [facility] Work Phone: Comment on above: Pattern: Regular 09-15-2014 09:54-0400 Pulse Oximetry 98 % Shelby Saenz [facility] Work Phone: Comment on above: Room air 09-15-2014 09:54-0400 SaO2% (BldA) [Mass fraction] 98 % Aspen Trejokaitlyn ZURITA [facility]; [facility] Work Phone: Comment on above: Room air 07-24-2012 10:43-0500 BMI (Body Mass Index) 25.24 kg/m2 Amina Cerna LPN [facility] Work Phone: 07-24-2012 10:43-0500 Body Temperature 97.6 [degF] Amina Ceran LPN [facility] Work Phone: Comment on above: Method: Oral 07-24-2012 10:43-0500 Body weight 66.71 kg Amina Cerna LPN [facility] Work Phone: 07-24-2012 10:43-0500 BP Diastolic 62 mm[Hg] Amina Cerna LPN [facility] Work Phone: Comment on above: Patient Position: Si tting; Cuff Location: Left Arm; Cuff Size: Standard 07-24-2012 10:43-0500 BP Systolic 98 mm[Hg] Amina Cerna LPN [facility] Work Phone: Comment on above: Patient Position: Si tting; Cuff Location: Left Arm; Cuff Size: Standard 07-24-2012 10:43-0500 BSA (Body Surface Area) 1.72 m2 Amina Cerna LPN [facility] Work Phone: 07-24-2012 10:43-0500 Height 162.56 cm Amina Cerna LPN [facility] Work Phone: 07-24-2012 10:43-0500 Pulse (Heart Rate) 62 /min Amina Cerna LPN [facility] Work Phone: Comment on above: Pattern: Regular 07-24-2012 10:43-0500 Respiratory Rate 16 /min Amina Cerna LPN [facility] Work Phone: Comment on above: Pattern: Unlabored 07-10-2012 11:28-0500 BMI (Body Mass Index) 25.24 kg/m2 Aspen Sandy BUSINESS TRAVEL CONSULTANT [facility] Work Phone: 07-10-2012 11:28-0500 Body Temperature 99.1 [degF] Aspen Sandy LPN [facility] Work Phone: Comment on above: Method: Oral 07-10-2012 11:28-0500 Body weight 66.71 kg Aspen Sandy LPN [facility] Work Phone: 07-10-2012 11:28-0500 BP Diastolic 72 mm[Hg] Aspen Sandy LPN [facility] Work Phone: Comment on above: Patient Position: Si tting; Cuff Location: Left Arm; Cuff Size: Standard 07-10-2012 11:28-0500 BP Systolic 112 mm[Hg] Aspen Sandy LPN [facility] Work Phone: Comment on above: Patient Position: Si tting; Cuff Location: Left Arm; Cuff Size: Standard 07-10-2012 11:28-0500 BSA (Body Surface Area) 1.72 m2 Aspen Sandy LPN [facility] Work Phone: 07-10-2012 11:28-0500 Height 162.56 cm Aspen Sandy LPN [facility] Work Phone: 07-10-2012 11:28-0500 Pulse (Heart Rate) 104 /min Aspen Sandy LPN [facility] Work Phone: Comment on above: Pattern: Regular 07-10-2012 11:28-0500 Respiratory Rate 16 /min Aspen Sandy LPN [facility] Work Phone: 12-13-2011 10:05-0400 BMI (Body Mass Index) 23.69 kg/m2 Aspen Sandy LPN [facility] Work Phone: 12-13-2011 10:05-0400 Body Temperature 98.6 [degF] Aspen Sandy LPN [facility] Work Phone: Comment on above: Method: Oral 12-13-2011 10:05-0400 Body weight 62.6 kg Aspen Sandy LPN [facility] Work Phone: 12-13-2011 10:05-0400 BP Diastolic 72 mm[Hg] Aspen Sandy LPN [facility] Work Phone: Comment on above: Patient Position: Si tting; Cuff Location: Left Arm; Cuff Size: Standard 12-13-2011 10:05-0400 BP Systolic 110 mm[Hg] Aspen Sandy LPN [facility] Work Phone: Comment on above: Patient Position: Si tting; Cuff Location: Left Arm; Cuff Size: Standard 12-13-2011 10:05-0400 BSA (Body Surface Area) 1.67 m2 Aspen Sandy LPN [facility] Work Phone: 12-13-2011 10:05-0400 Height 162.56 cm Aspen Sandy LPN [facility] Work Phone: 12-13-2011 10:05-0400 Pulse (Heart Rate) 80 /min Aspen Sandy LPN [facility] Work Phone: Comment on above: Pattern: Regular 12-13-2011 10:05-0400 Respiratory Rate 15 /min Aspen Sandy LPN [facility] Work Phone: 11-12-2010 10:00-0400 BMI (Body Mass Index) 25.75 kg/m2 Aspen Sandy LPN [facility] Work Phone: 11-12-2010 10:00-0400 Body Temperature 97.1 [degF] Aspen Sandy LPN [facility] Work Phone: Comment on above: Method: Oral 11-12-2010 10:00-0400 Body weight 68.04 kg Aspen Sandy LPN [facility] Work Phone: 11-12-2010 10:00-0400 BP Diastolic 68 mm[Hg] Aspen Sandy LPN [facility] Work Phone: Comment on above: Patient Position: Si tting; Cuff Location: Left Arm; Cuff Size: Standard 11-12-2010 10:00-0400 BP Systolic 110 mm[Hg] Aspen Sandy LPN [facility] Work Phone: Comment on above: Patient Position: Si tting; Cuff Location: Left Arm; Cuff Size: Standard 11-12-2010 10:00-0400 BSA (Body Surface Area) 1.73 m2 Aspen Sandy [facility] Work Phone: 11-12-2010 10:00-0400 Height 162.56 cm Aspen Sandy [facility] Work Phone: 11-12-2010 10:00-0400 Pulse (Heart Rate) 64 /min Aspen Sandy [facility] Work Phone: Comment on above: Pattern: Regular 11-12-2010 10:00-0400 Respiratory Rate 16 /min Aspen Sandy [facility] Work Phone: Comment on above: Pattern: Unlabored 01-19-2009 14:07-0400 BMI (Body Mass Index) 27.12 kg/m2 Daiana [facility] Work Phone: 01-19-2009 14:07-0400 Body weight 71.67 kg [facility] Work Phone: 01-19-2009 14:07-0400 BP Diastolic 84 mm[Hg] [facility] Work Phone: Comment on above: Patient Position: [place]; Cuff Location: Left Arm; Cuff Size: Standard 01-19-2009 14:07-0400 BP Systolic 120 mm[Hg] [facility] Work Phone: Comment on above: Patient Position: [place]; Cuff Location: Left Arm; Cuff Size: Standard 01-19-2009 14:07-0400 BSA (Body Surface Area) 1.77 m2 [facility] Work Phone: 01-19-2009 14:07-0400 Head Circumference 0 cm Shelby Saenz [facility] Work Phone: 01-19-2009 14:07-0400 Head Occipital-frontal circumference 0 cm [facility]; [facility] Work Phone: 01-19-2009 14:07-0400 Height 162.56 cm [facility] Work Phone: 01-19-2009 14:07-0400 Pulse (Heart Rate) 88 /min [facility] Work Phone: Comment on above: Pattern: Regular 01-19-2009 14:07-0400 Respiratory Rate 16 /min [facility] Work Phone: Comment on above: Pattern: Unlabored 09-11-2008 11:49-0400 BMI (Body Mass Index) 29.29 kg/m2 [facility] Work Phone: 09-11-2008 11:49-0400 Body Temperature 97.8 [degF] [facility] Work Phone: Comment on above: Method: Oral 09-11-2008 11:49-0400 Body weight 78.61 kg [facility] Work Phone: 09-11-2008 11:49-0400 BP Diastolic 64 mm[Hg] [facility] Work Phone: Comment on above: Patient Position: [place]; Cuff Location: Left Arm; Cuff Size: Standard 09-11-2008 11:49-0400 BP Systolic 108 mm[Hg] [facility] Work Phone: Comment on above: Patient Position: [place]; Cuff Location: Left Arm; Cuff Size: Standard 09-11-2008 11:49-0400 BSA (Body Surface Area) 1.85 m2 [facility] Work Phone: 09-11-2008 11:49-0400 Head Circumference 0 cm Shelby Saenz [facility] Work Phone: 09-11-2008 11:49-0400 Head Occipital-frontal circumference 0 cm [facility]; [facility] Work Phone: 09-11-2008 11:49-0400 Height 163.83 cm [facility] Work Phone: 09-11-2008 11:49-0400 Pulse (Heart Rate) 60 /min [facility] Work Phone: Comment on above: Pattern: Regular 09-11-2008 11:49-0400 Respiratory Rate 16 /min Daiana Polk [facility] Work Phone: Comment on above: Pattern: Unlabored 05-20-2008 11:08-0500 BMI (Body Mass Index) 29.29 kg/m2 Wendy Hernández RN [facility] Work Phone: 05-20-2008 11:08-0500 Body weight 78.61 kg Wendy Hernández RN [facility] Work Phone: 05-20-2008 11:08-0500 BP Diastolic 64 mm[Hg] Wendy Hernández RN [facility] Work Phone: Comment on above: Patient Position: Si tting; Cuff Location: Left Arm; Cuff Size: Standard 05-20-2008 11:08-0500 BP Systolic 118 mm[Hg] Wendy Hernández RN [facility] Work Phone: Comment on above: Patient Position: Si tting; Cuff Location: Left Arm; Cuff Size: Standard 05-20-2008 11:08-0500 BSA (Body Surface Area) 1.85 m2 Wendy Hernández RN [facility] Work Phone: 05-20-2008 11:08-0500 Head Circumference 0 cm Shelby Saenz [facility] Work Phone: 05-20-2008 11:08-0500 Head Occipital-frontal circumference 0 cm Wendy Hernández RN [facility]; [facility] Work Phone: 05-20-2008 11:08-0500 Height 163.83 cm Wendy Hernández RN [facility] Work Phone: 05-20-2008 11:08-0500 Pulse (Heart Rate) 64 /min Wendy Hernández RN [facility] Work Phone: Comment on above: Pattern: Regular 05-20-2008 11:08-0500 Respiratory Rate 18 /min Wendy Hernández RN [facility] Work Phone: Comment on above: Pattern: Unlabored 08-20-2007 14:58-0400 BMI (Body Mass Index) 29.29 kg/m2 [facility] Work Phone: 08-20-2007 14:58-0400 Body Temperature 100.1 [degF] [facility] Work Phone: Comment on above: Method: Oral 08-20-2007 14:58-0400 Body weight 78.61 kg [facility] Work Phone: 08-20-2007 14:58-0400 BP Diastolic 60 mm[Hg] [facility] Work Phone: Comment on above: Patient Position: Si tting; Cuff Location: Left Arm; Cuff Size: Standard 08-20-2007 14:58-0400 BP Systolic 112 mm[Hg] [facility] Work Phone: Comment on above: Patient Position: Si tting; Cuff Location: Left Arm; Cuff Size: Standard 08-20-2007 14:58-0400 BSA (Body Surface Area) 1.85 m2 [facility] Work Phone: 08-20-2007 14:58-0400 Head Circumference 0 cm Shelby [facility] Work Phone: 08-20-2007 14:58-0400 Head Occipital-frontal circumference 0 cm [facility]; [facility] Work Phone: 08-20-2007 14:58-0400 Height 163.83 cm [facility] Work Phone: 08-20-2007 14:58-0400 Pulse (Heart Rate) 84 /min [facility] Work Phone: Comment on above: Pattern: Regular 08-20-2007 14:58-0400 Pulse [facility] 98 % [facility] Work [facility]: Comment on above: Room air 08-20-2007 14:58-0400 Respiratory Rate 18 /min [facility] Work Phone: Comment on above: Pattern: Unlabored 08-20-2007 14:58-0400 SaO2% (BldA) [Mass fraction] 98 % [facility]; [facility] Work Phone: Comment on above: Room air 05-04-2007 07:06-0500 BMI (Body Mass Index) 29.29 kg/m2 Wendy Hernández RN [facility] Work Phone: 05-04-2007 07:06-0500 Body weight 78.61 kg Wendy Hernández RN [facility] Work Phone: 05-04-2007 07:06-0500 BP Diastolic 64 mm[Hg] Wendy Hernández RN [facility] Work Phone: Comment on above: Patient Position: Si tting; Cuff Location: Left Arm; Cuff Size: Standard 05-04-2007 07:06-0500 BP Systolic 102 mm[Hg] Wendy Hernández RN [facility] Work Phone: Comment on above: Patient Position: Si tting; Cuff Location: Left Arm; Cuff Size: Standard 05-04-2007 07:06-0500 BSA (Body Surface Area) 1.85 m2 Wendy Hernández RN [facility] Work Phone: 05-04-2007 07:06-0500 Head Circumference 0 cm Shelby Saenz [facility] Work Phone: 05-04-2007 07:06-0500 Head Occipital-frontal circumference 0 cm Wendy Hernández RN [facility]; [facility] Work Phone: 05-04-2007 07:06-0500 Height 163.83 cm Wendy Hernández RN [facility] Work Phone: 05-04-2007 07:06-0500 Pulse (Heart Rate) 80 /min Wendy Hernández RN [facility] Work Phone: Comment on above: Pattern: Regular 05-04-2007 07:06-0500 Respiratory Rate 20 /min Wendy Hernández RN [facility] Work Phone: Comment on above: Pattern: Unlabored 04-13-2007 09:30-0500 BMI (Body Mass Index) 29.12 kg/m2 Wendy Hernández RN [facility] Work Phone: 04-13-2007 09:30-0500 Body weight 78.16 kg Wendy Hernández RN [facility] Work Phone: 04-13-2007 09:30-0500 BP Diastolic 60 mm[Hg] Wendy Hernández RN [facility] Work Phone: Comment on above: Patient Position: Si tting; Cuff Location: Left Arm; Cuff Size: Standard 04-13-2007 09:30-0500 BP Systolic 110 mm[Hg] Wendy Hernández RN [facility] Work Phone: Comment on above: Patient Position: Si tting; Cuff Location: Left Arm; Cuff Size: Standard 04-13-2007 09:30-0500 BSA (Body Surface Area) 1.85 m2 Wendy Hernández RN [facility] Work Phone: 04-13-2007 09:30-0500 Head Circumference 0 cm Shelby Saenz [facility] Work Phone: 04-13-2007 09:30-0500 Head Occipital-frontal circumference 0 cm Wendy Hernández RN [facility]; [facility] Work Phone: 04-13-2007 09:30-0500 Height 163.83 cm Wendy Hernández RN [facility] Work Phone: 04-13-2007 09:30-0500 Pulse (Heart Rate) 80 /min Wendy Hernández RN [facility] Work Phone: Comment on above: Pattern: Regular 04-13-2007 09:30-0500 Respiratory Rate 20 /min Wendy Hernández RN [facility] Work Phone: Comment on above: Pattern: Unlabored 01-03-2007 09:09-0400 BMI (Body Mass Index) 28.41 kg/m2 Arlyn Singer [facility] Work Phone: 01-03-2007 09:09-0400 Body Temperature 99.1 [degF] Arlyn Singer [facility] Work Phone: Comment on above: Method: Oral 01-03-2007 09:09-0400 Body weight 76.26 kg Arlyn Singer [facility] Work Phone: 01-03-2007 09:09-0400 BP Diastolic 60 mm[Hg] Arlyn Singer [facility] Work Phone: Comment on above: Patient Position: Si tting; Cuff Location: Left Arm; Cuff Size: Standard 01-03-2007 09:09-0400 BP Systolic 104 mm[Hg] Arlyn Singer [facility] Work Phone: Comment on above: Patient Position: Si tting; Cuff Location: Left Arm; Cuff Size: Standard 01-03-2007 09:09-0400 BSA (Body Surface Area) 1.83 m2 Arlyn Singer [facility] Work Phone: 01-03-2007 09:09-0400 Head Circumference 0 cm Shelby Saenz [facility] Work Phone: 01-03-2007 09:09-0400 Head Occipital-frontal circumference 0 cm Arlyn Singer [facility]; [facility] Work Phone: 01-03-2007 09:09-0400 Height 163.83 cm Arlyn Singer [facility] Work Phone: 01-03-2007 09:09-0400 Pulse (Heart Rate) 60 /min Arlyn Singer [facility] Work Phone: Comment on above: Pattern: Regular 01-03-2007 09:09-0400 Respiratory Rate 16 /min Arlyn Singer [facility] Work Phone: Comment on above: Pattern: Unlabored NEGATED: Highlighted [id number] 10:53-0400 Body height 162.56 cm Miriam Castorena AT [facility] Work Phone: NEGATED: Highlighted [id number] 10:53-0400 Body height 163 cm Miriam Castorena AT [facility] Work Phone: NEGATED: Highlighted [id number] 10:53-0400 Body mass index (BMI) [Ratio] 30.15 kg/m2 Miriam Castorena AT [facility] Work Phone: NEGATED: Highlighted [id number] Body weight 79.38 kg Miriam Castorena AT [facility] Work Phone: NEGATED: Highlighted [id number] Body weight 80 kg Miriam Castorena AT [facility] Work Phone: Encounters Encounter Date Encounter Type Care Provider Facility Start: 01-03-2025 ambulatory Carmine Palakedgardo Guadarrama lity:[facility] Start: 12-26-2024 End: 12-26-2024 ambulatory Jany Wolff TRANSMISSION INSPECTOR-C Work Phone: [facility] Start: 12-26-2024 End: 12-26-2024 Patient encounter procedure Jany Wolff TRANSMISSION INSPECTOR-C -[facility] Work Phone: Start: 12-25-2024 End: 12-26-2024 ambulatory Jany Wolff TRANSMISSION INSPECTOR-C Work Phone: -[facility] Start: 12-25-2024 End: 12-25-2024 Patient encounter procedure Jany Wolff TRANSMISSION INSPECTOR-C -[facility] Work Phone: Start: 12-25-2024 End: 12-25-2024 ambulatory Jany Wolff Facility:[facility] Start: 12-11-2024 End: 12-11-2024 ambulatory Jany Wolff TRANSMISSION INSPECTOR-C Work Phone: -Laboratory Specimen Start: 12-11-2024 End: 12-11-2024 Patient encounter procedure Jany Wolff TRANSMISSION INSPECTOR-C -Laboratory Specimen Work Phone: Start: 12-11-2024 End: 12-11-2024 ambulatory Jany Wolff Facility:[facility] Start: 02-24-2023 Review Shelby harley DO Work Phone: [facility] Start: 02-24-2023 End: 02-24-2023 Office outpatient visit 15 minutes Shelby Saenz DO Work Phone: [facility] Start: 01-27-2023 End: 01-27-2023 Office outpatient visit 10 minutes Shelby Dany DO Work Phone: [facility] Start: 12-19-2022 End: 12-19-2022 Office outpatient visit 10 minutes Shelby Dany DO Work Phone: [facility] Start: 10-19-2022 End: 10-19-2022 Office outpatient visit 15 minutes Shelby Dany DO Work Phone: [facility] Start: 07-19-2022 End: 07-19-2022 Emergency department patient visit [facility] Start: 06-29-2022 End: 06-29-2022 Office outpatient visit 15 minutes Shelby Dany DO Work Phone: [facility] Start: 05-18-2022 ambulatory Shelby Dany DO [facility] Start: 05-18-2022 End: 05-18-2022 Office outpatient visit 10 minutes Shelby Dany DO Work Phone: [facility] Start: 05-18-2022 Review Shelby Fearo n DO Work Phone: [facility] Start: 04-20-2022 End: 04-20-2022 Office outpatient visit 10 minutes Shelby Dany DO Work Phone: [facility] Start: 04-06-2022 Review Shelby Fearo n DO Work Phone: [facility] Start: 04-06-2022 End: 04-06-2022 Office outpatient visit 10 minutes Shelby Dany DO Work Phone: [facility] Start: 03-23-2022 End: 03-23-2022 Office outpatient visit 10 minutes Shelby Dany DO Work Phone: [facility] Start: 03-09-2022 End: 03-09-2022 Office outpatient visit 10 minutes Shelby Dany DO Work Phone: [facility] Start: 02-23-2022 End: 02-23-2022 Office outpatient visit 10 minutes Shelby Dany DO Work Phone: [facility] Start: 02-09-2022 End: 02-09-2022 Office outpatient visit 15 minutes Shelby Dany DO Work Phone: [facility] Start: 01-06-2022 End: 01-06-2022 Office outpatient visit 15 minutes Shelby Dany DO Work Phone: [facility] Start: 01-06-2022 Review Shelby Donaldsono n DO Work Phone: [facility] Start: 09-01-2021 End: 09-01-2021 Prescription Refill Shelby Dany DO Work Phone: [facility] Start: 08-06-2021 End: 08-06-2021 Office outpatient visit 10 minutes Shelby Dany DO Work Phone: [facility] Start: 04-23-2021 End: 04-23-2021 Office outpatient visit 10 minutes Shelby Dany DO Work Phone: [facility] Start: 03-26-2021 End: 03-26-2021 Office outpatient visit 25 minutes Shelby Dany DO Work Phone: [facility] Start: 07-20-2020 End: 07-20-2020 Patient encounter procedure [facility] Start: 06-25-2020 End: 06-25-2020 Patient encounter procedure [facility] Start: 03-05-2020 End: 03-05-2020 Patient encounter procedure [facility] Start: 08-23-2019 End: 08-23-2019 Office outpatient visit 10 minutes Shelbysom Donaldsonon [facility] Start: 01-26-2017 End: 01-27-2017 Office outpatient visit 10 minutes Shelby Dany [facility] Start: 07-14-2016 End: 07-14-2016 Patient encounter procedure Shelby Dany [facility] Start: 07-11-2016 End: 07-11-2016 Office outpatient visit 25 minutes Shelby Dany [facility] Start: 02-25-2016 End: 02-25-2016 Office outpatient visit 15 minutes Shelby Saenz [facility] Start: 09-23-2014 End: 09-23-2014 Annotation/Addendum Shelby Dany [facility] Start: 09-15-2014 End: 09-15-2014 Office outpatient visit 15 minutes Shelby Saenz [facility] Start: 07-24-2012 End: 07-24-2012 Office outpatient visit 15 minutes Shelby Dany [facility] Start: 07-10-2012 End: 07-10-2012 Office outpatient visit 15 minutes Shelby Saenz [facility] Start: 12-13-2011 End: 12-13-2011 Office outpatient visit 15 minutes Shelby Dany [facility] Start: 08-10-2011 End: 08-10-2011 Phone Encounter Shelby Dany [facility] Start: 11-12-2010 End: 11-12-2010 Office outpatient visit 15 minutes Shelby Saenz [facility] Start: 01-19-2009 End: 01-19-2009 Office outpatient visit 25 minutes Shelby Saenz [facility] Start: 09-17-2008 End: 09-17-2008 Historical Summary Shelby Saenz [facility] Start: 09-11-2008 End: 09-11-2008 Patient encounter procedure Shelby Saenz [facility] Start: 05-20-2008 End: 05-20-2008 Patient encounter procedure Shelby Dany [facility] Start: 08-20-2007 End: 08-20-2007 Office outpatient visit 25 minutes Shelby Dany [facility] Start: 08-08-2007 End: 08-08-2007 Historical Summary Shelby Saenz [facility] Start: 05-04-2007 End: 05-04-2007 Patient encounter procedure Shelby Dany [facility] Start: 04-13-2007 End: 04-13-2007 Patient encounter procedure Shelby Dany [facility] Start: 01-03-2007 End: 01-03-2007 Historical Summary Shelby Saenz [facility] Start: 01-03-2007 End: 01-03-2007 Office outpatient visit 15 minutes Shelby Dany [facility] Procedures Date Procedure Procedure Detail Performing Clinician Start: 12-26-2024 Ultrasonography of breast Jany GODWIN Work Phone: Start: 12-25-2024 Screening mammography R luis miguel Bhardwajgar [employer] Work Phone: Start: 12-11-2024 Liquid based cervica l cytology screening Jany Wolff [employer] Work Phone: Comment on above: NEGATIVE FOR INTRAEP ITHELIAL LESION OR MALIGNANCY. This liquid based Th inPrep(R) pap test was screened withthe use of an image guided system. The HPV DNA reflex c riteria were not met with this specimenresult therefore, no HPV testing was performed.Performed at: [address] [place], [place] [id number] Director: Kat Donovan MD, Phone: [phone] Start: 10-17-2022 End: 10-17-2022 Urgent Care Visit Report Procedure Note: See Note; NOTES: [facility] [address] [place] [address] [address] [place] [address] OFFICE VISIT Date of Service: 10/17/22 MR#: [id number] Acct: [id number] Name: SONY ALVARENGA AMILCAR Rep #: [id number] : 1970 Provider: OSCAR Singh Age/Sex: 52/F [place] [facility] [place] Status: Signed Intake Vital Signs 07/19/22 09:23 Height 1.63 m Weight: 69.4 kg BMI 26.2 BP 141/94 H Respiration 14 Pulse 75 Temp 97.7 F L Temp Source Temporal Pulse Oximetry (%) 100 Intake Visit Reasons: FEVER, ACHY, SORE THROAT/COUGH Chief Complaint: sore throat Allergies Penicillins Allergy (Verified 07/19/22 09:25) Rash prochlorperazine edisylate [From Compazine] Allergy (Verified 07/19/22 09:25) Anaphylaxis prochlorperazine maleate [From Compazine] Allergy (Verified 07/19/22 09:25) Anaphylaxis PFSH Surgical History History of cholecystectomy History of D C History of tonsillectomy Social History Smoking Status: Never smoker alcohol intake: never HPI HPI Chief Complaint: sore throat Details: SONY ALVARENGA, is a 52 F with pmhx tonsillectomy who presents to the office today for sore throat. This has been present since monday. She also has fever, body aches, right ear pain, and dry cough. No N/V/D. 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 She also has prickly skin irritation over her BL shoulders tho there is no rash there. ROS Const Constitutional: Positive for body ache, chills, fatigue and fever(s) ENT ENT: Positive for ear or mastoid pain and sore throat; No nasal congestion Resp Respiratory: Positive for cough; No shortness of breath or wheezing Gastro GI: No diarrhea, nausea/dyspepsia or vomiting Endo Endocrine: Positive for fatigue Aller/Imm Allergy/Immunologic: No wheezing Exam Const General: cooperative, healthy appearing, comfortable, no acute distress, well developed and well groomed Nutritional Appearance: average body habitus and well nourished Orientation: alert, awake and oriented x3 HENMT Head: normocephalic and atraumatic Ears: hearing grossly normal bilaterally, external ears normal and TM abnormal (Right Tm erythematous) Nose: external nose normal Face and sinus: normal facial exam and sinuses nontender Throat: uvula midline, posterior oropharynx abnormal erythema and exudates and tonsils absent Neck Lymphatic: lymphadenopathy bilateral anterior cervical Skin Rashes: no rashes Coding Level of Care Code Off vis,est,level 3 Diagnoses Strep pharyngitis J02.0 Assessment and Plan Assessment and Plan (1) Strep pharyngitis: Status: Acute Plan: start azithromycin (pcn allergy). motrin/tylenol prn pain/fever, phenol prn pain. pmhx gerd on pepcid. Medications: New azithromycin (Zithromax Z-Greg) take 500 mg today (day 1), then 250 mg for 4 days (days 2-5) PO 6 tabs 0RF 10/17/22 1203 <Electronically signed by Robert MOORE> Date Robert Ruckerignkaitlyn Signature: Date (if applicable) CC: Shelby Saenz DO Work Phone: Start: 07-19-2022 End: 07-19-2022 Emergency Department Summary Procedure Note: See Note; NOTES: [facility] Medical Records Department [address] [place] [address] Emergency Department Summary 07/19/22 MR#: [id number] Acct: [id number] Name: SONY ALVARENGA Rep #: [id number] : 1970 52 From: Geoff Gaspar MD PCP: Dr. Shelby Saenz, DO Status:REG ER Location: ED HPI History of Present Illness Chief Complaint: Hypertension Narrative Narrative: 52-year-old female who denies significant past medical history presents with reported elevated blood pressure, and feeling dizzy, and lightheaded. 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 She felt almost confused but was able to carry on a conversation without difficulty. She states she was able to complete her route, and afterwards, she felt very dizzy. She denies that the room was necessarily spinning but she felt off. She states she stood up to get a wheelchair, and then felt lightheaded. She denies any chest pain but did have mild shortness of breath. No headache with this. No paresthesias. She states that she had a sit down because she felt as if she were going to pass out, and she had an RN take her blood pressure and it was reportedly elevated in the 180 systolically. She does not have past medical history of hypertension and does not take any medications. Currently, she feels improved, no longer feels lightheaded or dizzy but feels weak. No recent nausea or vomiting, no diarrhea, no dysuria or hematuria. She states that it was recommended that she go to the emergency department and be evaluated. PFSH PFSH Home Medications famotidine 20 mg tablet 20 mg PO BID #28 tabs 12/13/19 [Rx Last Taken Unknown] Allergy/AdvReac Type Severity Reaction Status Date / Time Penicillins Allergy Rash Verified 07/19/22 09:25 prochlorperazine edisylate Allergy Anaphylaxis Verified 07/19/22 09:25 [From Compazine] prochlorperazine maleate Allergy Anaphylaxis Verified 07/19/22 09:25 [From Compazine] Surgical History History of cholecystectomy History of D C History of tonsillectomy Social History Smoking Status: Never smoker alcohol intake: never ROS ROS ED ROS Narrative Constitutional: No fever, no chills. Reported elevated blood pressure. HEENT: No sore throat. No neck pain. No loss of vision. No rhinorrhea. Cardiovascular: No chest pain. No palpitations. No pedal edema. Respiratory: No cough, transient shortness of breath. Abdominal: No abdominal pain. No nausea. No vomiting. Genitourinary: No dysuria. No hematuria. Musculoskeletal: No myalgias. No arthralgias. Neurologic: No headaches. Positive dizziness. Positive lightheadedness. Confused-resolved Skin: No rash. No change in color. Psychiatric: No depression. No anxiety. EXAM Physical Exam Narrative Exam Narrative: Afebrile. Vital signs noted. HEENT: Normocephalic. Atraumatic. PERRL, EOMI. Neck soft and supple. No point tenderness or step off. Cardiovascular: Regular rate and rhythm. No murmurs, rubs, or gallops appreciated. Respiratory: No tachypnea. Lungs clear to auscultation bilaterally. Gastrointestinal: Abdomen soft, nontender, with normoactive bowel sounds. No rebound or guarding. Neurological: Awake. Alert. Nonfocal, nonlateralizing. NIH stroke scale is 0. DTRs equal and symmetric. Skin: No rash. Normal color. No pallor. Musculoskeletal: No pedal edema. Full range of motion extremities. Const Vital Signs: 07/19/22 09:23 07/19/22 09:32 07/19/22 09:41 Temperature 97.7 F L Temperature Source Temporal Pulse Rate 75 Pulse Rate [Lying] Pulse Rate [Sitting (for 1 minute prior to obtaining)] Pulse Rate [Standing (for 1 minute prior to obtaining)] Respiratory Rate 14 Respiratory Pattern Normal Blood Pressure 141/94 H 145/82 H Blood Pressure [Lying] Blood Pressure [Sitting (for 1 minute prior to obtaining)] Blood Pressure [Standing (for 1 minute prior to obtaining)] Blood Pressure Mean 109 103 Blood Pressure Mean [Lying] Blood Pressure Mean [Sitting (for 1 minute prior to obtaining)] Blood Pressure Mean [Standing (for 1 minute prior to obtaining)] Pulse Ox 100 Oxygen Delivery Method Room Air 07/19/22 09:45 Temperature Temperature Source Pulse Rate Pulse Rate [Lying] 72 Pulse Rate [Sitting (for 1 minute prior to obtaining)] 68 Pulse Rate [Standing (for 1 minute prior to obtaining)] 72 Respiratory Rate Respiratory Pattern Blood Pressure Blood Pressure [Lying] 137/66 H Blood Pressure [Sitting (for 1 minute prior to obtaining)] 145/82 H Blood Pressure [Standing (for 1 minute prior to obtaining)] 130/76 H Blood Pressure Mean Blood Pressure Mean [Lying] 89 Blood Pressure Mean [Sitting (for 1 minute prior to obtaining)] 103 Blood Pressure Mean [Standing (for 1 minute prior to obtaining)] 94 Pulse Ox Oxygen Delivery Method MDM MDM MDM Narrative Medical decision making narrative: Patient current blood pressure is 141/94. Pulse ox is 100% on room air. She is not tachycardic. Her NIH stroke scale is 0. I do not feel that stroke team is indicated because she is currently asymptomatic except for the feeling of weakness. Additionally, I do not feel that tPA is indicated because her symptoms have essentially resolved. Currently, she has slightly elevated blood pressure that is in the borderline range. I do not feel that any medication is needed to lower her blood pressure. Comprehensive work-up was pursued. This included orthostatics. She will be bolused IV fluids, normal saline 1 L intravenously. I will check a CBC, CMP, and urinalysis along with EKG, troponin, and chest x-ray. I do feel that CT imaging is indicated given her reported dizziness and elevated blood pressure in the 180s. I reviewed the patient's laboratory work, her CBC shows a normal white count of 7.3, hemoglobin normal at 14.3, hematocrit 43.6, urinalysis is negative for infection or ketones. Jdcce-ar-[id number] glucose normal at 96. CMP obtained and reviewed and the only laboratory value that is abnormal is a low AST of 14. Orthostatics were obtained and reviewed in the nursing notes which are negative for significant increase in her pulse or drop in her systolic blood pressure. Currently, her systolic blood pressure is 129. CT of the brain was obtained, and on my individual independent interpretation, see no evidence of acute hemorrhage. And I reviewed the radiology report which shows no acute process. EKG was obtained and interpreted by myself which demonstrates normal sinus rhythm at 61 bpm without ectopy or acute ST changes. No STEMI. Chest x-ray also interpreted by myself in 1 view shows no acute process, no pneumonia or pneumothorax. I reviewed the radiology report and there is no evidence of acute process. At this point in time, her blood pressure has essentially normalized, and I am unsure as to the cause of her dizziness/lightheadednes s and near syncope, but I do feel that she can be discharged safely home with follow-up. She was told to keep track of her blood pressure and follow-up with her primary care physician regarding her elevated blood pressure. I do not feel that antihypertensive medication needs to be started currently. Return instructions were reviewed. Disposition is discharged home in stable condition. Patient is agreeable with the plan and feels well. Lab Data Attestation: I reviewed the patient's lab results. Labs: Laboratory Results - last 24 hr 07/19/22 07/19/22 07/19/22 09:45 09:53 09:55 WBC 7.3 RBC 4.55 Hgb 14.3 Hct 43.6 MCV 95.8 MCH 31.4 MCHC 32.8 RDW Std Deviation 43.8 RDW Coeff of Dodie 12.4 Plt Count 211 MPV 10.4 Immature Gran % (Auto) 0.300 Neut % (Auto) 68.6 Lymph % (Auto) 20.3 Crane % (Auto) 6.1 Eos % (Auto) 4.0 Baso % (Auto) 0.7 Absolute Neuts (auto) 5.0 Absolute Lymphs (auto) 1.49 Nucleated RBC % 0 Sodium Potassium Chloride Carbon Dioxide Anion Gap BUN Creatinine Estim Creat Clear Calc Est GFR (MDRD) Af Amer Est GFR (MDRD) Non-Af BUN/Creatinine Ratio Glucose Calcium Total Bilirubin AST ALT Alkaline Phosphatase Troponin I High Sens Total Protein Albumin Globulin Albumin/Globulin Ratio Urine Color Yellow Urine Clarity Clear Urine pH 7.0 Ur Specific [place] 1.005 Urine Protein Negative Urine Glucose (UA) Normal Urine Ketones Negative Urine Occult Blood Negative Urine Nitrite Negative Urine Bilirubin Negative Urine Urobilinogen Normal Ur Leukocyte Esterase Negative Urine RBC 0 SEEN Urine WBC 0 SEEN Ur Squamous Epith Cells 0 SEEN Urine Bacteria 0 SEEN Urine Mucus 0 SEEN POC Glucose 96 07/19/22 09:55 WBC RBC Hgb Hct MCV MCH MCHC RDW Std Deviation RDW Coeff of Dodie Plt Count MPV Immature Gran % (Auto) Neut % (Auto) Lymph % (Auto) Crane % (Auto) Eos % (Auto) Baso % (Auto) Absolute Neuts (auto) Absolute Lymphs (auto) Nucleated RBC % Sodium 140 Potassium 4.2 Chloride 105 Carbon Dioxide 29.0 Anion Gap 6 BUN 15 Creatinine 0.86 Estim Creat Clear Calc 65.33 Est GFR (MDRD) Af Amer 89 Est GFR (MDRD) Non-Af 74 BUN/Creatinine Ratio 17.5 Glucose 105 Calcium 9.3 Total Bilirubin 0.50 AST 14 L ALT 20 Alkaline Phosphatase 90 Troponin I High Sens 4 Total Protein 7.8 Albumin 4.0 Globulin 3.8 Albumin/Globulin Ratio 1.1 Urine Color Urine Clarity Urine pH Ur Specific [place] Urine Protein Urine Glucose (UA) Urine Ketones Urine Occult Blood Urine Nitrite Urine Bilirubin Urine Urobilinogen Ur Leukocyte Esterase Urine RBC Urine WBC Ur Squamous Epith Cells Urine Bacteria Urine Mucus POC Glucose Radiography Diagnostic Testing: Clinical Impression(s) from Imaging Studies Brain CT 07/19/22 09:42 IMPRESSION: Normal unenhanced CT scan of the brain. Partial opacification of the left maxillary sinus. Electronically Signed: Finn Guardado MD at 10:17 EST , Chest X-Ray 07/19/22 09:42 IMPRESSION: Normal x-ray examination of the chest. Electronically Signed: Finn Guardado MD at 11:07 EST , Discharge Plan Triage Chief Complaint: Hypertension ED Provider: Geoff Gaspar Dx/Rx/DC Orders Clinical Impression: Elevated blood pressure reading without diagnosis of hypertension, Light-headed, Dizziness Instructions: ED Dizziness, Uncertain Cause, ED Hypertension, To Be Confirmed Prescriptions: No Action famotidine 20 MG tablet 20 mg PO BID Qty: 28 0RF Primary Care Provider: Shelby Saenz Referrals: Shelby Saenz DO [Primary Care Provider] - 1-2 Days if not improving Disposition Disposition: Home, Self Care What to do if you have Problems For any increased pain, shortness of breath, bleeding, nausea or vomiting, chest pain, or any unexpected problems, contact your Primary Care Provider. Call [facility] ([phone]) or report to the closest Emergency Room. Call 911 if necessary. 07/19/22 1111 <Electronically signed by Geoff Gaspar MD> Cosigner Signature (if applicable): CC: Dr. Shelby Saenz DO Signed Shelby Saenz DO Work Phone: Start: 07-19-2022 End: 07-21-2022 12 Lead EKG Procedure Note: See Note; NOTES: [facility] Cardiovascular Services [address] [place] [address] 12 Lead EKG 07/19/22 0947 MR#: [id number] Acct: [id number] Name: SONY ALVARENGA Rep #: [id number] : 1970 52 From: Shun Mena MD Attending Dr: Status: DEP ER Ordering Dr: Geoff Gaspar MD Date: 07/19/22 Location: ED Sex: F C Admitted: Test Reason : HIGH BP Blood Pressure : / mmHG Vent. Rate : 061 BPM Atrial Rate : 061 BPM P-R Int : 146 ms QRS Dur : 086 ms QT Int : 424 ms P-R-T Axes : 054 010 029 degrees QTc Int : 426 ms Normal sinus rhythm Normal ECG Confirmed by SHUN MENA MD ([id number]), editor trade journal JOSE JOE ([id number]) on 07/21/2022 11:22:00 AM Referred By: Confirmed By:SHUN MENA MD 07/21/22 1122 Date Shun Mena MD CC: Dr. Geoff Gaspar MD; Dr. Shelby Saenz, DO Signed Shelby Saenz DO Work Phone: Start: 07-19-2022 End: 07-19-2022 Brain/Head without Contrast Procedure Note: See Note; NOTES: [facility] Imaging Services [address] [place] [address] Brain/Head without Contrast MR#: [id number] Acct: [id number] Name: SONY ALVARENGA Rep #: [id number] : 1970 F 52 From: Finn craig MD PCP: Dr. Shelby Saenz DO Status: REG ER Study: Brain/Head without Contrast Date of Exam: 07/06 09/25 Exam# [id number] Ordering Dr: Geoff Gaspar MD STUDY: CT BRAIN WITHOUT CONTRAST REASON FOR EXAM: Female, 52 years old. Dizziness RADIATION DOSAGE (If Supplied By Facility): CTDIvol = ( 44.99 ) mGy, DLP = ( 796.11 ) mGycm TECHNIQUE: Transaxial CT imaging of the brain was performed without administration of intravenous contrast material. Individualized dose optimization techniques were used for this CT. COMPARISON: Comparison is made with prior examination 08/02/2012. FINDINGS: Normal soft tissue structures. Normal calvarium. Normal size ventricles and extra-axial spaces for the patient''s age. Normal white matter tracts of the cerebral hemispheres. Normal basal ganglia and thalami. Normal brainstem. Normal cerebellum. There is no intracranial hemorrhage. There are no findings of an acute ischemic infarction. There is partial opacification of the left maxillary sinus. CT/Brain/Head without Contrast IMPRESSION: Normal unenhanced CT scan of the brain. Partial opacification of the left maxillary sinus. Electronically Signed: Finn Guardado MD at 10:17 EST , CC: Dr. Geoff Gaspar MD; Dr. Shelby Saenz DO Interface Control Officer: Signed Shelby Saenz DO Work Phone: Start: 07-19-2022 End: 07-19-2022 Chest 1 View (Portable) Procedure Note: See Note; NOTES: [facility] Imaging Services [address] [place] [address] Chest 1 View (Portable) MR#: [id number] Acct: [id number] Name: SONY ALVARENGA Rep #: [id number] : 1970 F 52 From: Finn cragi MD PCP: Dr. Shelby Saenz DO Status: REG ER Study: Chest 1 View (Portable) Date of Exam: 07/19/22 Exam# [id number] Ordering Dr: Geoff Gaspar MD STUDY: X-RAY CHEST REASON FOR EXAM: Female, 52 years old. Shortness of Breath TECHNIQUE: Single AP portable view of the chest. COMPARISON: Comparison is made with prior study 12/13/2019. FINDINGS: EKG electrodes are seen. The lungs are clear and expanded. There is no demonstrated pleural abnormality. Normal size heart. Normal mediastinum and ania. Normal visualized pulmonary arteries. Normal visualized aortic arch and descending thoracic aorta. Normal visualized thoracic spine. Normal visualized ribs, clavicles, and shoulders. There is no demonstrated abnormality of the visualized soft tissue structures of the upper abdomen. RAD/Chest 1 View (Portable) IMPRESSION: Normal x-ray examination of the chest. Electronically Signed: Finn Guardado MD at 11:07 EST , CC: Dr. Geoff Gaspar MD; Dr. Shelby Saenz DO Interface Control Officer: Signed Shelby Saenz DO Work Phone: Start: 07-19-2022 CT of head without contrast Start: 07-19-2022 Plain chest X-ray Start: 09-03-2021 End: 09-03-2021 BP scrn no perf at interval Carrol Vance MD Work Phone: Start: 09-03-2021 End: 09-03-2021 Calc BMI out nrm oneil nof/u Carrol Vance MD Work Phone: Start: 09-03-2021 End: 09-03-2021 Current tobacco non-user cad cap copd pv dm Carrol Vance MD Work Phone: Start: 09-03-2021 End: 09-03-2021 Docrev cur meds by azul Vance MD Work Phone: Start: 09-03-2021 End: 09-03-2021 Hfo without joints pre ots Carrol Vance MD Work Phone: Start: 09-03-2021 End: 09-03-2021 Osteoarthritis symptoms&funcjal status asses Carrol Vance MD Work Phone: Start: 09-03-2021 End: 09-03-2021 Pain neg no plan Carrol Vance MD Work Phone: Start: 09-03-2021 End: 09-03-2021 Patient encounter procedure Carrol Vance MD Work Phone: Start: 08-09-2021 End: 08-10-2021 Hand Min 3 Views Comments: See Note; NOTES: [facility] Imaging Services [address] [place] [address] Hand Min 3 Views MR#: [id number] Acct: [id number] Name: SONY ALVARENGA Rep #: [id number] : 1970 F 51 From: Sid Garcia MD PCP: Dr. Shelby Saenz DO Status: REG CLI Study: Hand Min 3 Views Date of Exam: 08/09/21 Exam# [id number] Ordering Dr: Shelby Saenz DO EXAM: XR LEFT HAND COMPLETE, 3 OR MORE VIEWS : 1970 CLINICAL INDICATION: PAIN TECHNIQUE: Frontal, lateral and oblique views of the left hand. This report was created using [employer] report generation technology. COMPARISON: None. FINDINGS: BONES/JOINTS: Unremarkable. No acute fracture. No subluxation. Normal alignment. Preservation of the joint space. No sclerotic or destructive changes observed. SOFT TISSUES: Unremarkable. No soft tissue swelling or gas. No radiopaque foreign body. RAD/Hand Min 3 Views IMPRESSION: Negative left hand x-rays. at 0242 Reported and signed by: Sid Garcia MD Electronically Signed: Sid Garcia MD at 2:41 EST , CC: Dr. Shelby Saenz DO Interface Control Officer: Signed Shelby Saenz DO Work Phone: Start: 12-13-2019 End: 12-13-2019 Emergency Department Summary Comments: See Note; NOTES: [facility] Medical Records Department [address] [place] [address] Emergency Department Summary 12/13/19 MR#: [id number] Acct: [id number] Name: SONY KERR Rep #: [id number] : 1970 49 From: David Veloz DO PCP: Dr. Shelby Saenz, Status:PRE ER History of Present Illness Chief Complaint: Other, Pain/Inj Past Medical History - Allergies and Home Meds Allergies/Adverse Reactions: Allergies Penicillins Allergy (Verified 12/13/19 08:32) Rash prochlorperazine edisylate [From Compazine] Allergy (Verified 12/13/19 08:32) Anaphylaxis prochlorperazine maleate [From Compazine] Allergy (Verified 12/13/19 08:32) Anaphylaxis Primary Care Physician: Shelby Saenz DO [Primary Care Provider] - Smoking Status: Never smoker Physical Exam Vital Signs/Narrative: Vital Signs Temp Pulse Resp BP Pulse Ox 12/13/19 08:30 97 F L 75 18 148/101 H 99 ED Disposition - Plan for ED Patient: Referrals: Shelby Saenz DO [Primary Care Provider] - What to do if you have Problems For any increased pain, shortness of breath, bleeding, nausea or vomiting, chest pain, or any unexpected problems, contact your Primary Care Provider. Call [facility] ([phone]) or report to the closest Emergency Room. Call 911 if necessary. 12/13/19835 <Electronically signed by David Veloz DO> Date David Veloz DO Cosigner Signature (If Indicated): Date CC: DO Shelby Adrian Start: 07-20-2017 End: 07-20-2017 Urgent Care Visit Report Comments: See Note; NOTES: [facility] [address] [place] [address] OFFICE VISIT Date of Service: 07/20/17 MR#: [id number] Acct: [id number] Name: SONY KERR Rep #: [id number] : 1970 Provider: Burak MOORE Age/Sex: 47/F Location: [facility] Status: Signed Intake Vital Signs07/20/17 Height 5 ft 4 in 07/20/17 Weight: 165 lb 07/20/17 Body Mass Index (BMI) 28.3 07/20/17 Blood Pressure 116/74 Intake Visit Reasons: HURT RIGHT THUMB Chief Complaint: Right thumb pain Index Clerk Required: No Is patient in pain?: No Allergies Penicillins Allergy (Verified 07/20/17 10:49) Rash prochlorperazine edisylate [From Compazine] Allergy (Verified 07/20/17 10:49) Anaphylaxis prochlorperazine maleate [From Compazine] Allergy (Verified 07/20/17 10:49) Anaphylaxis Medications doxycycline hyclate 100 mg capsule 100 mg PO BID 10 Days #20 cap 07/20/17 [Rx Confirmed 07/20/17] PFSH Surgical History History of D AND C (Acute) History of cholecystectomy (Acute) History of tonsillectomy (Acute) Social History Smoking Status: Never smoker alcohol intake: never HPI HPI Chief Complaint: Right thumb pain Details: SONY KERR, is a 47 F who presents to the office today for initial evaluation right thumb pain. Patient notes 4 days ago hitting the end of her right thumb nail plate which has an artificial nail plate in place. Since the time of the injury she has noted progressively worsening discomfort at the base of the right nail plate along with trace increased warmth and swelling to the same. She has no complaints fever, chills, sweats. She does be concerned for potential infection. She notes no prior history of injuries or surgeries to the same. She is right-hand dominant. She has no other associated symptoms and no other alleviating or aggravating factors. ROS Const Constitutional: No excessive sweating, abnormal sleep pattern, chills, fever(s) or night sweats Eyes Eyes: No change in vision ENT ENT: No abnormal hearing, ear pain, ear discharge, ear pressure or hearing loss Resp Respiratory: No cough or chest congestion Cardio Cardiology: No excessive sweating, chest pain at rest, chest pain with exertion, shortness of breath, dyspnea on exertion, irregular heart rhythm, generalized swelling or leg pain with exertion Gastro GI: No abdominal pain, change in stool character or change in bowel habits Musc Musculoskeletal: No joint pain, back pain, limited range of motion, tingling or numbness Skin Skin: Positive for redness and skin swelling; no change in hair or sores Neuro Neurology: No abnormal hearing, abnormal speech, abnormal movements, tingling or numbness Psych Psychiatric: No abnormal sleep pattern Endo Endocrine: No excessive sweating, change in body appearance, cold intolerance or heat intolerance Aller/Imm Allergy/Immunologic: No food intolerance Billy/Lymp Hematologic/Lymphatic: No easy bruising Exam Const General: cooperative, healthy appearing, no acute distress Nutritional Appearance: average body habitus Orientation: alert, awake, oriented x3 HENMT Head: normal to inspection Ears: hearing grossly normal bilaterally Nose: external nose normal Eyes General: appearance normal, both eyes and all related structures Neck Neck: normal visual inspection, full ROM, no lymphadenopathy, no meningeal signs, supple Neck mass: No Thyroid: thyroid normal Lymphatic: no lymphadenopathy noted Chest Chest palpation AND inspection: normal inspection of the chest Resp Effort AND Inspection: normal respiratory effort, able to speak in complete sentences, symmetric chest movement Cardio Rate: regular rate Pulses: radial pulses present GI Inspection: normal to inspection Skin General: no rashes or lesions noted, erythema (R thumb DP w/ mildly taunt skin and warm to touch), other (R thumb proximal subungual hematoma appreciated) Neuro General: alert, awake, oriented x3, gait normal Cognition: normal cognition Speech: speech normal Gait: normal gait Motor: muscle tone normal throughout Sensory Exam: no sensory deficits noted Extrem General: normal to inspection Psych Appearance: grossly normal Mental Status: mental status grossly normal Mood: congruent mood Affect: normal affect Speech and Movement: speech and movement normal Attitude: cooperative Thought Process: normal Thought Content: normal Judgment: judgment good Assessment AND Plan Problems 1. Cellulitis of right thumb L03.011 2. Contusion of right thumb nail S60.111A Plan Doxycycline as prescribed today. Aluminum thumb splint as best/instructed today. Rest, ice, elevate, Advil/Tylenol as needed for symptomatic relief. Follow-up with PCP in 3-5 days should symptoms not improved, sooner should symptoms worsen or any other concerns develop. Patient states knowledge understanding all the above. Medications New: Coding Level of Care Code Off vis,new,level 4 Diagnoses Cellulitis of right thumb L03.011 Contusion of right thumb nail S60.111A 07/20/17 1207 <Electronically signed by Burak MOORE> Date Burak Owusu Signature: Date (if applicable) CC: Shelby Dany Start: 04-01-2015 End: 04-01-2015 Operative Report Comments: See Note; NOTES: [facility] Medical Records Department [address] [place] [address] Operative Report MR#: [id number] Acct: [id number] Name: SONY KERR Rep #: [id number] : 1970 44 From: Hao Finley MD PCP: Shelby Saenz DO Status: [facility] DATE OF SERVICE: 03/26/2015 DATE OF SURGERY: March 26, 2015 POSTOPERATIVE DIAGNOSIS: Left bloody nipple discharge. POSTOPERATIVE DIAGNOSIS: Left bloody nipple discharge. PROCEDURE: Excision of left ductal system to breast. SURGEON: Hao Finley M.D. ANESTHESIA: Endotracheal intubation. ESTIMATED BLOOD LOSS: Less than 25 mL. FLUID REPLACEMENT: About 500 mL of crystalloid. ASA: 2. DESCRIPTION OF PROCEDURE: The patient was brought in the operating room, placed in supine position. Under excellent general anesthetic, the left breast was sterilely prepped and draped in usual fashion. A nipple that was extruding the bloody nipple discharge was in the 7 o'clock position. A lacrimal probe was placed in this. Excision around the nipple-areolar complex was entertained. I dissected down to the nipple ____ the probe was going in. I detached it from the nipple and followed it down into the breast area removing it with electrocautery and sending it to pathology for permanent sectioning. I used electrocautery for good hemostasis. I injected local. Wound was brought together with deep dermal stitches of 3-0 Vicryl, then a running 4-0 Monocryl. Dermabond was applied. Sterile dressings were applied and the patient tolerated the procedure well. Hao Finley MD T: NTS JOB: [id number] 04/01/15 1410 <Electronically signed by Hao Finley MD> Date Hao Finley MD Cosigner Signature (If Indicated): Date CC: Hao Finley MD; Shelby Saezn DO Date Dictated: 03/26/15 1140 Date Transcribed: 03/26/15 114 Interface Control Officer: Signed Shelby Saenz Start: 03-26-2015 End: 03-26-2015 Emergency Department Summary Comments: See Note; NOTES: [facility] Medical Records Department [address] [facility] [place] [address] Emergency Department Summary 03/26/15 1937 MR#: [id number] Acct: [id number] Name: SONY KERR Rep #: [id number] : 1970 44 From: Srikanth Martinez MD PCP: Shelby Saenz DO Status: REG ER - ER Visit Summary Date of Service: 03/26/15 Chief Complaint: Nausea and vomiting status post left breast biopsy by Dr. Finley today. History of Present Illness: The patient is a 44 F presents because of nausea and vomiting since 1500. She reports vomiting 5 times. She has committed nausea. She denies fever, chills or night sweats. She denies headache, visual, ocular or auditory symptoms. She denies any respiratory or cardiac symptoms. She denies diarrhea. Review of Systems: Pertinent positive and negatives were documented otherwise negative. Physical Examination: Jeff is a pleasant 44-year-old woman whose vitals are normal. HEENT exam is rectal dry mucosa. Lungs are clear to auscultation. Heart is regular without murmur, gallop or rub. Abdomen soft nontender. Biopsy site was not examined since this was performed hours ago. Test Results: Not indicated Emergency Department Course: Liter of normal saline wide open and 4 mg of Zofran IV push. She required an additional dose of Zofran and normal saline. Treatment Plan: Patient was discharged home with a Zofran home pack. Disposition: Discharged home in stable and improved condition Impression: Nausea and vomiting postop after left breast biopsy Dehydration secondary to #1 ED Disposition - Plan for ED Patient: Disposition: Home or Assisted Living Chief Complaint: Nausea/Vomiting Instructions: ED Vomiting (6Y-Adult) Referrals: Shelby Saenz DO [Primary Care Provider] - Hao Finley MD [STAFF PHYSICIAN] - Keep Lainey appointment What to do if you have Problems For any increased pain, shortness of breath, bleeding, nausea or vomiting, chest pain, or any unexpected problems, contact your doctor. Call [facility] ([phone]) or report to the closest Emergency Room. Call 911 if necessary. 03/26/152219 <Electronically signed by Srikanth Martinez MD> Date Srikanth Martinez MD Cosigner Signature (If Indicated): Date CC: Hao Finley MD; Shelby Lozada Start: 03-26-2015 End: 03-26-2015 Discharge Instruction Comments: See Note; NOTES: [facility] Medical Records Department [address] [place] [address] Instructions for Home/Discharge Instructions 03/26/15 1120 MR#: [id number] Acct: [id number] Name: SONY KERR Rep #: [id number] : 1970 44 From: Hao Finley MD PCP: Shelby Saenz DO Status: REG [facility] [place] Discharge Diet: No Restrictions Discharge Activity: May Not Drive - for 2-3 days or while taking narcotic pain meds. May shower in (days): 1 Lifting Restrictions: 10 pounds for 1 week. Call your doctor if your incision/area has: Continuous Slow Oozing, Sudden Increased Bleeding Call your doctor if you observe: Fever of 101 or Higher Suture Line Care: Avoid Pulling/Pushing, Avoid Pinching/Bending Remove Dressing in (days):: 1 - Remove bulky dressing tomorrow. May leave any opsite dressing for 3-4 days. Keep dressing in place until your follow-up appointment. Additional Dressing/Incision Instructions:: Remove bulky dressing tomorrow. May leave any opsite dressing for 3-4 days. Keep dressing in place until your follow-up appointment. Allergies/Adverse Reactions: Allergies Penicillins Allergy (Verified 03/23/15 16:57) Rash prochlorperazine edisylate [From Compazine] Allergy (Verified 03/23/15 16:58) Anaphylaxis prochlorperazine maleate [From Compazine] Allergy (Verified 03/23/15 16:58) Anaphylaxis Medications to take at Discharge Oxycodone HCl/Acetaminophen [Percocet 5/325] 1 - 2 tablet PO Q4H PRN PRN #30 tablet 03/26/15 The following prescriptions were given: Oxycodone HCl/Acetaminophen [Percocet 5/325] 1 - 2 tablet PO Q4H PRN PRN #30 tablet PRN Reason: Pain 03/26/15 1121 <Electronically signed by Hao Finley MD> Date Hao Finley MD CC: Shelby Lozada Start: 02-16-2015 End: 02-16-2015 Operative Report Comments: See Note; NOTES: [facility] Medical Records Department [address] [place] [address] Operative Report MR#: [id number] Acct: [id number] Name: SONY KERR Rep #: [id number] : 1970 44 From: Samantha Sheehan MD PCP: Shelby Saenz DO Status: [facility] DATE OF SERVICE: 02/11/2015 DATE OF SERVICE: February 11, 2015 PROCEDURES: Hysteroscopy, dilation and curettage, and NovaSure endometrial ablation. PREOPERATIVE DIAGNOSIS: Menorrhagia. POSTOPERATIVE DIAGNOSIS: Menorrhagia. ANESTHESIA: MAC IV sedation per Clarisa Banerjee CRNA and a 10 mL of 1% lidocaine with epinephrine paracervical block at the 2 o'clock, 4 o'clock, 8 o'clock and [address] per [address] Samantha Sheehan. ESTIMATED BLOOD LOSS: Minimal. COMPLICATIONS: None. DRAINS: Red Murphy catheter used to drain the bladder prior to initiating the case. FLUIDS REPLACEMENT: Lactated Ringer's. FINDINGS: The cervix is parous appearing. The uterus sounds to approximately 8.5 cm with an endocervical length of approximately 4.5 cm. Both tubal ostia were visualized and within normal limits. There was a fluffy-appearing endometrium without submucous fibroids and no endometrial polyps. The uterus is 4.4 cm. PATHOLOGY SPECIMENS: Include uterine curettings, endocervical curettings. NARRATIVE ACCOUNT: After the risks, benefits, alternatives of the procedure have been reviewed with the patient and informed consent was obtained, the patient was taken to the operating room with an IV running. She was placed in dorsal supine position where she was given MAC IV sedation. Once sedated, she was repositioned to the dorsal lithotomy position and prepped and draped in the usual sterile fashion. A red Murphy catheter was used to drain the bladder prior to initiating the case. A Graves speculum was placed into the vagina and the cervix was brought into view. The cervix was parous appearing. The anterior lip of the cervix was grasped with a single-tooth tenaculum and a paracervical block of 1% lidocaine with epinephrine was instilled at the 2 o'clock, 4 o'clock, 8 o'clock and 10 o'clock positions. Once the paracervical block was placed, the uterine cervix was sequentially dilated and the uterus was sounded. The uterus sounded to 8.5 cm with length of 4.5 cm. The hysteroscopy was performed with the findings noted above and photos were taken showing the tubal ostia bilaterally and a fluffy-appearing endometrium. The hysteroscope was removed and a sharp curettage was performed with the uterine curettings set aside for later pathology review. The NovaSure device was then on sheath and placed through the cervix to the uterine fundus. The length was entered as 4 cm. The cavity width at the fundus was 4.4 cm. The CO2 test was passed successfully and a treatment cycle at 97 ramachandran power was initiated. The cycle lasted for 2 minutes and 5 seconds. Upon completion of the endometrial ablation, the NovaSure was re-sheathed and removed from the cervix. The single-tooth tenaculum was removed from the anterior lip of the cervix. Excellent hemostasis was noted. A sponge stick was used to cleanse the upper vagina and cervix of any remaining tissue and blood. The Graves speculum was then removed. The patient was returned to dorsal supine position. She was transferred to the recovery room bed in stable condition after tolerating the procedure well. Sponge, lap, needle and instrument counts were correct x2. Medications given preoperative and intraoperative included the paracervical block of 1% lidocaine with epinephrine 10 mL used, the MAC IV sedation. Please see the anesthesia record for those medications used and Toradol 30 mg IV x1 given upon completion of the case. Please see the anesthesia record again for complete listing of the medications given preop and intraop. Samantha Sheehan MD T: NTS JOB: [id number] 02/16/15 0749 <Electronically signed by Samantha Sheehan MD> Date Samantha Sheehan MD Cosigner Signature (If Indicated): Date CC: Samantha Sheehan MD; Shelby Saenz DO Date Dictated: 02/11/15 1339 Date Transcribed: 02/11/151338 Interface Control Officer: Signed Shelby Saenz Start: 02-11-2015 End: 02-11-2015 Discharge Instruction Comments: See Note; NOTES: [facility] Medical Records Department [address] [place] [address] Instructions for Home/Discharge Instructions 02/11/15 1253 MR#: [id number] Acct: [id number] Name: SONY KERR Rep #: [id number] : 1970 44 From: Samantha Sheehan MD PCP: Shelby Saenz DO Status: REG [facility] [place] Discharge Diet: No Restrictions Discharge Activity: May Shower, May Take a Tub Bath May resume sexual activity in: 1 week Additional Activity Instructions:: You may take tylenol 1-2 every 4 hrs... AND either two Aleve or three Ibuprofen every 8 hrs as needed for pain. Add OxyIR if needed for more severe cramping. Call your doctor if you observe: Fever of 101 or Higher, Using more than one pad per hour, Uncontrolled pain Allergies/Adverse Reactions: Allergies Penicillins Allergy (Verified 07/25/13 08:06) Rash prochlorperazine edisylate [From Compazine] Allergy (Verified 07/25/13 08:06) Other prochlorperazine maleate [From Compazine] Allergy (Verified 07/25/13 08:06) Other Medications to take at Discharge No Known/Unobtainable [No Known Home Medications] 02/05/15 Please Follow Up With: Samantha Sheehan - [phone] When: in two weeks for postop check 02/11/15 1256 <Electronically signed by Samantha Sheehan MD> Date Samantha Sheehan MD CC: Shelby Lozada Start: 01-15-2015 End: 01-16-2015 Breast Limited Unilateral Comments: See Note; NOTES: [facility] Imaging Services [address] [place] [address] Ultrasound Report MR#: [id number] Acct: [id number] Name: SONY KERR Rep #: [id number] : 1970 F 44 From: Finn Guardado MD PCP: Shelby Saenz DO Status: [facility] CLI Study: Breast Limited Unilateral Date of Exam: 01/15/15 Exam# [id number] Ordering Dr: Samantha Sheehan MD STUDY: ULTRASOUND BREAST - LEFT REASON FOR EXAM: Female, 44 years old. Nipple discharge. TECHNIQUE: Axial and longitudinal images of the LEFT breast were performed with a high resolution ultrasound transducer. COMPARISON: Comparison is made with prior mammogram done earlier in the day. FINDINGS: LEFT Breast: There is evidence of a ductal dilatation in the retroareolar region. 2 cysts are seen in the subareolar region. The larger measures 1.4 cm x 1.4 cm x 0.6 cm. IMPRESSION: Dilated retroareolar ducts with 2 small cysts. ASSESSMENT CATEGORY: BIRADS Category 2: Benign. A letter regarding these results will be sent to the patient by the facility within 30 days. Electronically Signed: Finn Guardado MD at 7:50 EDT Tel [phone], Service support [phone], CC: Samantha Sheehan MD; Shelby Saenz DO Interface Control Officer: Signed Shelby Saenz Start: 01-15-2015 End: 01-15-2015 GC Aesthetics Diag Digital AND CAD Comments: See Note; NOTES: [facility] Imaging Services [address] [place] [address] Breast Imaging Report MR#: [id number] Acct: [id number] Name: SONY KERR Rep #: [id number] : 1970 F 44 From: Finn Guardado MD PCP: Shelby Saenz DO Status: [facility] CLI Study: Unilat Lt Diag Digital AND CAD Date of Exam: 01/15/15 Exam# [id number] Ordering Dr: Samantha Sheehan MD MAMMOGRAPHY - UNILATERAL DIAGNOSTIC: LEFT BREAST REASON FOR EXAM: Female, 44 years old. Left nipple discharge. PERTINENT HISTORY: Grandmother with breast cancer. TECHNIQUE: Digital examination. Mediolateral oblique (MLO) and craniocaudad (CC) views of the breast were obtained. CAD: CAD was performed on this study. COMPARISON: Comparison is made with prior examination dated March 03, 2014 and April 15, 2011. FINDINGS: Breast Composition: The breasts are extremely dense, which lowers the sensitivity of mammography. There are no dominant masses or suspicious calcifications. No other significant abnormalities are identified. There has been no significant change since the prior study. IMPRESSION: Stable unilateral diagnostic mammogram. With the patient's history of a nipple discharge, correlation with ultrasound is recommended. ASSESSMENT CATEGORY: BIRADS Category 0: Incomplete. Need additional imaging evaluation. A letter regarding these results will be sent to the patient by the facility within 30 days. Approximately 10% of breast cancers are not detected by mammography. A normal mammogram should not delay biopsy of a clinically suspicious abnormality. Electronically Signed: Finn Guardado MD at 15:42 EDT Tel [phone], Service support [phone], CC: Samantha Sheehan MD; Shelby Saenz DO Interface Control Officer: Signed Shelby Saenz Start: 03-03-2014 End: 03-03-2014 Bilat Scrn Digital & CAD Comments: See Note; NOTES: [facility] Imaging Services [address] [place] [address] Breast Imaging Report MR#: [id number] Acct: [id number] Name: SONY KERR Rep #: [id number] : 1970 F 43 From: Finn Guardado MD PCP: Shelby Saenz DO Status: REG I Exam# [id number] Ordering Dr: Samantha Sheehan MD MAMMOGRAPHY - BILATERAL SCREENING REASON FOR EXAM: Female, 43 years old. Routine annual screening examination. PERTINENT HISTORY: Grandmother with breast cancer. TECHNIQUE: Digital examination. Mediolateral oblique (MLO) and craniocaudad (CC) views of both breasts were obtained. CAD: CAD was performed on this study. COMPARISON: Comparison is made with prior study dated April 15, 2011. FINDINGS: Breast Composition: The breasts are extremely dense, which lowers the sensitivity of mammography. There are no dominant masses or suspicious calcifications. No other significant abnormalities are identified. There has been no significant change since the prior study. IMPRESSION: Stable bilateral screening mammogram. Yearly follow-up recommended. (A) ASSESSMENT CATEGORY: BIRADS Category 2: Benign finding(s). A letter regarding these results will be sent to the patient by the facility within 30 days. Approximately 10% of breast cancers are not detected by mammography. A normal mammogram should not delay biopsy of a clinically suspicious abnormality. Electronically Signed: Finn Guardado MD at 12:38 EDT Tel [phone], Service support [phone], CC: Samantha Sheehan MD; Shelby Saenz DO Interface Control Officer: Signed Shelby Saenz Cholecystectomy Cholecystectomy Shleby Saenz Comment on above: 10/06 Cholecystectomy Cholecystectomy Lilia Sl arb BUSINESS TRAVEL CONSULTANT Comment on above: 10/06 Cholecystectomy Cholecystectomy Ruby Gr avius SUPERIOR COURT CLERK Comment on above: 10/06 Cholecystectomy Cholecystectomy Ruby Gr avius SUPERIOR COURT CLERK Comment on above: 10/06 Cholecystectomy Cholecystectomy Kayela Ra dford SUPERIOR COURT CLERK Comment on above: 10/06 Cholecystectomy Cholecystectomy Ruby Gr avius SUPERIOR COURT CLERK Comment on above: 10/06 Cholecystectomy Cholecystectomy Kayela Ra dford SUPERIOR COURT CLERK Comment on above: 10/06 Cholecystectomy Cholecystectomy Kayela Ra dford SUPERIOR COURT CLERK Comment on above: 10/06 Cholecystectomy Cholecystectomy Kayela Ra dford SUPERIOR COURT CLERK Comment on above: 10/06 Cholecystectomy Cholecystectomy Mandi Cof fman BUSINESS TRAVEL CONSULTANT Comment on above: 10/06 Cholecystectomy Cholecystectomy Lilia Sl arb BUSINESS TRAVEL CONSULTANT Comment on above: 10/06 Cholecystectomy Cholecystectomy Meir Pr yor BUSINESS TRAVEL CONSULTANT Comment on above: 10/06 Cholecystectomy Cholecystectomy Roberta M anchak SUPERIOR COURT CLERK Comment on above: 10/06 H/O: section Section An lila Slarb BUSINESS TRAVEL CONSULTANT Comment on above: X 2 H/O: section Section Lai Kerr SUPERIOR COURT CLERK Comment on above: X 2 H/O: section Section Lai Kerr SUPERIOR COURT CLERK Comment on above: X 2 H/O: section Section Raúl Muller CMA Comment on above: X 2 H/O: section Section Ja new Kerr SUPERIOR COURT CLERK Comment on above: X 2 H/O: section Section Raúl Muller CMA Comment on above: X 2 H/O: section Section Raúl Muller SUPERIOR COURT CLERK Comment on above: X 2 H/O: section Section Raúl Muller SUPERIOR COURT CLERK Comment on above: X 2 H/O: section Section Eleuterio Paz LPN Comment on above: X 2 H/O: section Section An lila Slarb BUSINESS TRAVEL CONSULTANT Comment on above: X 2 H/O: section Section Da khadra Abebe LPN Comment on above: X 2 H/O: section Section Riki Lyman SUPERIOR COURT CLERK Comment on above: X 2 H/O: surgery Tonsillectomy Lilia Slarb L PN Comment on above: 1987 H/O: surgery Tonsillectomy Ruby Gravius SUPERIOR COURT CLERK Comment on above: 1987 H/O: surgery Tonsillectomy Ruby Gravius SUPERIOR COURT CLERK Comment on above: 1987 H/O: surgery Tonsillectomy Ligiaa Yohana SUPERIOR COURT CLERK Comment on above: 1987 H/O: surgery Tonsillectomy Ruby Gravius SUPERIOR COURT CLERK Comment on above: 1987 H/O: surgery Tonsillectomy Ligiaa Yohana SUPERIOR COURT CLERK Comment on above: 1987 H/O: surgery Tonsillectomy Ligiaa Yohana SUPERIOR COURT CLERK Comment on above: 1987 H/O: surgery Tonsillectomy Ligiaa Yohana SUPERIOR COURT CLERK Comment on above: 1987 H/O: surgery Tonsillectomy Mandi Paz LPN Comment on above: 1987 H/O: surgery Tonsillectomy Lilia Slarb L PN Comment on above: 1987 H/O: surgery Tonsillectomy Meir Andrae L PN Comment on above: 1987 H/O: surgery Tonsillectomy Roberta keita SUPERIOR COURT CLERK Comment on above: 1987 NEGATED: Highlighted rowStart: 09-03-2021 End: 09-03-2021 Documentation of current medications Miriam Castorena AT Plan of Treatment Date Care Activity Detail Author Start: 02-24-2023 Procedure Education Eprescribed prescriptions (G8553) [facility] Work Phone: Start: 02-24-2023 Provider Instructions for Treatment [facility] Work Phone: Start: 02-24-2023 25 hydroxy includes fractions if performed CALCIFIDIOL (77143) VIT D 25 [facility] Work Phone: Start: 02-24-2023 Lipid panel LIPID PANEL (85341) [facility] Work Phone: Start: 02-24-2023 Assay of thyroid stimulating hormone tsh TSH (39013) [facility] Work Phone: Start: 01-27-2023 Procedure Education Eprescribed prescriptions (G8553) [facility] Work Phone: Start: 01-27-2023 Provider Instructions for Treatment [facility] Work Phone: Start: 12-19-2022 Procedure Education Eprescribed prescriptions (G8553) [facility] Work Phone: Start: 12-19-2022 Provider Instructions for Treatment Follow up in 2 weeks [facility] Work Phone: Start: 10-19-2022 Patient Education Influenza, Adult [facility] Work Phone: Start: 10-19-2022 Procedure Education Eprescribed prescriptions (G8553) [facility] Work Phone: Start: 10-19-2022 Provider Instructions for Treatment Follow up if no improvement or if symptoms worsen [facility] Work Phone: Start: 06-29-2022 Procedure Education Eprescribed prescriptions (G8553) [facility] Work Phone: Start: 06-29-2022 Provider Instructions for Treatment Diet, Exercise, and Wt loss [facility] Work Phone: Start: 05-18-2022 Procedure Education Eprescribed prescriptions (G8553) [facility] Work Phone: Start: 05-18-2022 Provider Instructions for Treatment [facility] Work Phone: Start: 04-20-2022 Procedure Education Eprescribed prescriptions (G8553) [facility] Work Phone: Start: 04-20-2022 Provider Instructions for Treatment [facility] Work Phone: Start: 04-06-2022 Procedure Education Eprescribed prescriptions (G8553) [facility] Work Phone: Start: 04-06-2022 Provider Instructions for Treatment [facility] Work Phone: Start: 03-23-2022 Procedure Education Eprescribed prescriptions (G8553) [facility] Work Phone: Start: 03-23-2022 Provider Instructions for Treatment [facility] Work Phone: Start: 03-09-2022 Procedure Education Eprescribed prescriptions (G8553) [facility] Work Phone: Start: 03-09-2022 Provider Instructions for Treatment [facility] Work Phone: Start: 02-23-2022 Procedure Education Eprescribed prescriptions (G8553) [facility] Work Phone: Start: 02-23-2022 Provider Instructions for Treatment [facility] Work Phone: Start: 02-09-2022 Procedure Education Eprescribed prescriptions (G8553) [facility] Work Phone: Start: 02-09-2022 Provider Instructions for Treatment [facility] Work Phone: Start: 01-06-2022 Procedure Education Eprescribed prescriptions (G8553) [facility] Work Phone: Start: 01-06-2022 Provider Instructions for Treatment [facility] Work Phone: Start: 09-03-2021 End: 09-03-2021 Patient encounter procedure Appointment [facility] Work Phone: Start: 04-23-2021 Procedure Education Eprescribed prescriptions (G8553) [facility] Work Phone: Start: 04-23-2021 Provider Instructions for Treatment Continue Current Prescription(s) [facility] Work Phone: Start: 03-26-2021 Procedure Education Eprescribed prescriptions (G8553) [facility] Work Phone: Start: 03-26-2021 Provider Instructions for Treatment Follow up in 4 weeks [facility] Work Phone: Start: 08-23-2019 Procedure Education Eprescribed prescriptions (G8553) [facility] Work Phone: Start: 01-26-2017 Provider Instructions for Treatment I/D Cyst/Abscess [facility] Work Phone: Start: 07-11-2016 Procedure Education Eprescribed prescriptions (G8553) [facility] Work Phone: Start: 07-11-2016 Provider Instructions for Treatment Follow up if no improvement or if symptoms worsen [facility] Work Phone: Start: 02-25-2016 Patient Education Clean-Catch Urine Sample (Women) *: uti [facility] Work Phone: Start: 02-25-2016 Procedure Education Eprescribed prescriptions (G8553) [facility] Work Phone: Start: 09-15-2014 Provider Instructions for Treatment [facility] Work Phone: Start: 07-24-2012 Provider Instructions for Treatment [facility] Work Phone: Start: 07-10-2012 Patient Education Water in diet, brief version [facility] Work Phone: Start: 07-10-2012 Provider Instructions for Treatment [facility] Work Phone: Start: 07-10-2012 Renal function panel Renal function Panel (25893) [facility] Work Phone: Start: 07-10-2012 Culture bacterial quanttative colony count urine URINE BC CULTURE-EDITH COL COUNT (98050) [facility] Work Phone: Start: 12-13-2011 Provider Instructions for Treatment Follow up in 1 month [facility] Work Phone: Start: 01-19-2009 Provider Instructions for Treatment [facility] Work Phone: Start: 09-11-2008 Patient Education Sore throat: diagnosis and treatment [facility] Work Phone: Start: 09-11-2008 Cul bact xcpt urine blood/stool aerobic isol BC CULTURE-OTHER (24204) [facility] Work Phone: Start: 09-11-2008 [place]oo streptococcus group a Rapid Strep Test, Office (45339) [facility] Work Phone: Start: 09-11-2008 S. pyogenes Ag IA Ql (Unsp spec) Rapid Strep Test, Office (43763) [facility] Work Phone: Start: 08-20-2007 Provider Instructions for Treatment [facility] Work Phone: Start: 04-13-2007 Provider Instructions for Treatment FOLLOW UP IN 4 WEEKS [facility] Work Phone: Start: 01-03-2007 Provider Instructions for Treatment [facility] Work Phone: Patient Education ED Dizziness, Uncertain Cause ED Hypertension, To Be Confirmed [facility] Work Phone: Patient referral [facility] Work Phone: [facility] Work [facility]: [facility] Work Phone: [facility] Work Phone: [facility] Work Phone: [facility] Work Phone: Immunizations Immunization Date Immunization Notes Care Provider Lola luz 07-30-2007 haemophilus influenz ae type b conjugate and Hepatitis B vaccine Shelby Saenz [facility] Work Phone: Payers Date Payer Category Payer Self-pay [id number] 2024 Self-pay [id number] 2020 Unknown [id number] 2019 Private Health Insurance [id number] 2016 Unknown [id number] [address] [facility] ([place], [place]) e ( and others) [id number] 2007 Unknown [id number] 1970 Unknown [id number] Unknown Unknown [id number] Unknown [id number] Unknown [id number] Unknown [id number] Social History Date Type Detail Facility Alcohol Use Alcohol Use [facility] Work Phone: Comment on above: Occasional alcohol u se 1 cola,tea or coffee Nothing routine [employer] Start: 09-03-2021 End: 09-03-2021 Assertion Unknown if ever smoked [facility] Work Phone: Start: 12-13-[address] [facility] Start: 12-13-[address] [facility] Start: 1970 Sex Assigned At Female W [facility] Start: 10-17-2022 End: 12-31-2024 Tobacco smoking status NHIS Never smoked tobacco (finding) [facility] Mental Status Date Assessment Result Facility 07-19-2022 Cognitive function Level Of Cons ciousness Awake;Alert;Appropriate;Follow s Commands [facility] Work Phone: Clinical Notes 10-19-2022 to 12-27-2024 Note Date & Type Note Facility 12-27-2024 Radiology Diagnostic study note [facility] [address] [place] [address] Breast Limited Unilateral MR#: [id number] Acct: [id number] Name: SONY ALVARENGA Rep #: [id number] : 1970 F 54 From: Lanette Mchugh MD PCP: TATO Martines Status: REG CLI Study:Breast Limited Unilateral Date of Exam: 12/26/24 Exam# [id number] Ordering Dr: Ra peri Wolff PROCEDURE: BREAST LIMITED UNILATERAL 12/26/2024 REASON FOR EXAM: 54-year-old female presents for follow-up of the right breast findings seen on examination 12/25/2024. Family history of breast cancer in a paternal grandmother at age 40 COMPARISON: Mammogram 12/25/2024. TECHNIQUE: BREAST LIMITED UNILATERAL FINDINGS: Ultrasound performed of the upper central right breast. Follow-up examination performed for the right breast mass seen on examination of12/25/2024. On the present examination, there is round hypoechoic mass in the retroareolar right breast, measuring 0.8 x 0.7 x0.6 cm. There is mild internal vascular flow. This is the correlate for the mammographic finding. US/Breast Limited Unilateral IMPRESSION: Probably benign right breast mass in the retroareolar region. Recommend short interval six-month diagnostic ultrasound of the right breast. BI-RADS 3: PROBABLY BENIGN. RECOMMENDATION: 6 Month Follow-up Reading Location: [id number] CC: TATO Wolff ~ Interface Control Officer: Signed [facility] 10-19-2022 Instructions Name Patient Instructions Start: 3 Instruction Type:Provider Instructions for Treatment How to Access Health Information Online using Patient Portal and 3rd Libertarian Apps Start: 3 Instruction Type:Patient Education Patient Instructions Start: 3 Instruction Type:Provider Instructions for Treatment How to Access Health Information Online using Patient Portal and 3rd Libertarian Apps Start: 3 Instruction Type:Patient Education Patient Instructions Indication:BMI 25.0-25.9,adult Start: 2 Instruction Type:Provider Instructions for Treatment How to Access Health Information Online using Patient Portal and 3rd Libertarian Apps Indication:BMI 25.0-25.9,adult Start: 2 Instruction Type:Patient Education Patient Instructions Start: 2 Instruction Type:Provider Instructions for Treatment How to Access Health Information Online using Patient Portal and 3rd Libertarian Apps Start: 2 Instruction Type:Patient Education Patient Instructions Indication:BMI 26.0-26.9,adult Start:06-Apr-2022 Instruction Type:Provider Instructions for Treatment How to Access Health Information Online using Patient Portal and 3rd Libertarian Apps Indication:BMI 26.0-26.9,adult Start:06-Apr-2022 Instruction Type:Patient Education Patient Instructions Start: 2 Instruction Type:Provider Instructions for Treatment How to Access Health Information Online using Patient Portal and 3rd Libertarian Apps Start: 2 Instruction Type:Patient Education Patient Instructions Indication:BMI 29.0-29.9,adult Start:09-Mar-2022 Instruction Type:Provider Instructions for Treatment How to Access Health Information Online using Patient Portal and 3rd Libertarian Apps Indication:BMI 29.0-29.9,adult Start:09-Mar-2022 Instruction Type:Patient Education Patient Instructions Indication:BMI 29.0-29.9,adult Start: 2 Instruction Type:Provider Instructions for Treatment How to Access Health Information Online using Patient Portal and 3rd Libertarian Apps Indication:BMI 29.0-29.9,adult Start: 2 Instruction Type:Patient Education Patient Instructions Start:09-Feb-2022 Instruction Type:Provider Instructions for Treatment How to Access Health Information Online using Patient Portal and 3rd Libertarian Apps Start:09-Feb-2022 Instruction Type:Patient Education Patient Instructions Start:06-Jan-2022 Instruction Type:Provider Instructions for Treatment How to Access Health Information Online using Patient Portal and 3rd Libertarian Apps Start:06-Jan-2022 Instruction Type:Patient Education Patient Instructions Indication:BMI 27.0-27.9,adult Start: 1 Instruction Type:Provider Instructions for Treatment How to Access Health Information Online using Patient Portal and 3rd Libertarian Apps Indication:BMI 27.0-27.9,adult Start: 1 Instruction Type:Patient Education Patient Instructions Start: 1 Instruction Type:Provider Instructions for Treatment How to Access Health Information Online using Patient Portal and 3rd Libertarian Apps Start: Instruction Type:Patient Education How to access health information online Start: 0 Instruction Type:Patient Education How to access health information online - Detail Start: 0 Instruction Type:Patient Education Patient Instructions Start: 0 Instruction Type:Provider Instructions for Treatment How to access health information online Start: 7 Instruction Type:Patient Education How to access health information online - Detail Start: 7 Instruction Type:Patient Education Patient Instructions Start: 7 Instruction Type:Provider Instructions for Treatment How to access health information online Indication:Right ear pain Start:11-Jul-2016 Instruction Type:Patient Education How to access health information online - Detail Indication:Right ear pain Start:11-Jul-2016 Instruction Type:Patient Education Patient Instructions Indication:Right ear pain Start:11-Jul-2016 Instruction Type:Provider Instructions for Treatment How to access health information online Indication:Dysuria Start: 6 Instruction Type:Patient Education How to access health information online - Detail Indication:Dysuria Start: 6 Instruction Type:Patient Education Patient Instructions Indication:Dysuria Start: 6 Instruction Type:Provider Instructions for Treatment [facility] Work Phone: discharge summary Author Dr. Gaspar [facility] July 19, 2022 11:11am Note Date/Time July 19, 2022 9:48am [facility] Medical Records Department [address] [place] [address] [place] [address] Emergency Department Summary 07/19/22 MR#: [id number] Acct: [id number] Name: SONY ALVARENGA Rep #:[id number] : 1970 52 From: Geoff Gaspar MD PCP: Dr. Shelby Saenz, DO Status:RE [facility] Location: ED HPI History of Present Illness Chief Complaint: Hypertension Narrative Narrative: 52-year-old female who denies significant past medical history presents with reported elevated blood pressure, and feeling dizzy, and lightheaded. 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 She felt almost confused butwas able to carry on a conversation without difficulty. She states she was ableto complete her route, and afterwards, she felt very dizzy. She denies that the room was necessarily spinning but she felt off. She states she stood up to get a wheelchair, and then felt lightheaded. She denies any chest pain but did have mild shortness of breath. No headache with this. No paresthesias. She states that she had a sit down because she felt as if she were going to passout, and she had an RN take her blood pressure and it was reportedly elevated inthe 180 systolically. She does not have past medical history of hypertension and does not take any medications. Currently, she feels improved, no longer feels lightheaded or dizzy but feels weak. No recent nausea or vomiting, no diarrhea, no dysuria or hematuria. She states that it was recommended that she go to the emergency department and be evaluated. PFSH PFS Home Medications famotidine 20 mg tablet 20 mg PO BID #28 tabs 12/13/19 [Rx Last Taken Unknown] Allergy/AdvReac Type Severity Reaction Status Date / Time Penicillins Allergy Rash Verified 07/19/22 09:25 prochlorperazine edisylate Allergy Anaphylaxis Verified 07/19/22 09:25 [From Compazine] prochlorperazine maleate Allergy Anaphylaxis Verified 07/19/22 09:25 [From Compazine] Surgical History History of cholecystectomy History of D&C History of tonsillectomy Social History Smoking Status: Never smoker alcohol intake: never ROS ROS ED ROS Narrative Constitutional: No fever, no chills. Reported elevated blood pressure. HEENT: No sore throat. No neck pain. No loss of vision. No rhinorrhea. Cardiovascular: No chest pain. No palpitations. No pedal edema. Respiratory: No cough, transient shortness of breath. Abdominal: No abdominal pain. No nausea. No vomiting. Genitourinary: No dysuria. No hematuria. Musculoskeletal: No myalgias. No arthralgias. Neurologic: No headaches. Positive dizziness. Positive lightheadedness. Confused-resolved Skin: No rash. No change in color. Psychiatric: No depression. No anxiety. EXAM Physical Exam Narrative Exam Narrative: Afebrile. Vital signs noted. HEENT: Normocephalic. Atraumatic. PERRL, EOMI. Neck soft and supple. No pointtenderness or step off. Cardiovascular: Regular rate and rhythm. No murmurs, rubs, or gallops appreciated. Respiratory: No tachypnea. Lungs clear to auscultation bilaterally. Gastrointestinal: Abdomen soft, nontender, with normoactive bowel sounds. No rebound or guarding. Neurological: Awake. Alert. Nonfocal, nonlateralizing. NIH stroke scale is 0. DTRs equal and symmetric. Skin: No rash. Normal color. No pallor. Musculoskeletal: No pedal edema. Full range of motion extremities. Const Vital Signs: 07/19/22 09:23 07/19/22 09:32 07/19/22 09:41 Temperature 97.7 F L Temperature Source Temporal Pulse Rate 75 Pulse Rate [Lying] Pulse Rate [Sitting (for 1 minute prior to obtaining)] Pulse Rate [Standing (for 1 minute prior to obtaining)] Respiratory Rate 14 Respiratory Pattern Normal Blood Pressure 141/94 H 145/82 H Blood Pressure [Lying] Blood Pressure [Sitting (for 1 minute prior to obtaining)] Blood Pressure [Standing (for 1 minute prior to obtaining)] Blood Pressure Mean 109 103 Blood Pressure Mean [Lying] Blood Pressure Mean [Sitting (for 1 minute prior to obtaining)] Blood Pressure Mean [Standing (for 1 minute prior to obtaining)] Pulse Ox 100 Oxygen Delivery Method Room Air 07/19/22 09:45 Temperature Temperature Source Pulse Rate Pulse Rate [Lying] 72 Pulse Rate [Sitting (for 1 minute prior to obtaining)] 68 Pulse Rate [Standing (for 1 minute prior to obtaining)] 72 Respiratory Rate Respiratory Pattern Blood Pressure Blood Pressure [Lying] 137/66 H Blood Pressure [Sitting (for 1 minute prior to obtaining)] 145/82 H Blood Pressure [Standing (for 1 minute prior to obtaining)] 130/76 H Blood Pressure Mean Blood Pressure Mean [Lying] 89 Blood Pressure Mean [Sitting (for 1 minute prior to obtaining)] 103 Blood Pressure Mean [Standing (for 1 minute prior to obtaining)] 94 Pulse Ox Oxygen Delivery Method MDM MDM MDM Narrative Medical decision making narrative: Patient current blood pressure is 141/94. Pulse ox is 100% on room air. She isnot tachycardic. Her NIH stroke scale is 0. I do not feel that stroke team is indicated because she is currently asymptomatic except for the feeling of weakness. Additionally, I do not feel that tPA is indicated because her symptoms have essentially resolved. Currently, she has slightly elevated blood pressure that is in the borderline range. I do not feel that any medication is needed to lower her blood pressure. Comprehensive work-up was pursued. This included orthostatics. She will be bolused IV fluids, normal saline 1 L intravenously. I will check a CBC, CMP, and urinalysis along with EKG, troponin, and chest x-ray. I do feel that CT imaging is indicated given her reported dizziness and elevated blood pressure in the 180s. I reviewed the patient's laboratory work, her CBC shows a normal white count of 7.3, hemoglobin normal at 14.3, hematocrit 43.6, urinalysis is negative for infection or ketones. [id number] glucose normal at 96. CMP obtained and reviewed and the only laboratory value that is abnormal is a low AST of 14. Orthostatics were obtained and reviewed in the nursing notes which are negative for significant increase in her pulse or drop in her systolic blood pressure. Currently, her systolic blood pressure is 129. CT of the brain was obtained, and on my individual independent interpretation, see no evidence of acute hemorrhage. And I reviewed the radiology report which shows no acute process. EKG was obtained and interpreted by myself which demonstrates normal sinus rhythm at 61 bpm without ectopy or acute ST changes. No STEMI. Chest x-ray also interpreted by myself in 1 view shows no acute process, no pneumonia or pneumothorax. I reviewed the radiology report and there is no evidence of acuteprocess. At this point in time, her blood pressure has essentially normalized, and I am unsure as to the cause of her dizziness/lightheadedness and near syncope, but I do feel that she can be discharged safely home with follow-up. She was told to keep track of her blood pressure and follow-up with her primary care physician regarding her elevated blood pressure. I do not feel that antihypertensive medication needs to be started currently. Return instructions were reviewed. Disposition is discharged home in stable condition. Patient is agreeable with the plan and feels well. Lab Data Attestation: I reviewed the patient's lab results. Labs: Laboratory Results - last 24 hr 07/19/22 07/19/22 07/19/22 09:45 09:53 09:55 WBC 7.3 RBC 4.55 Hgb 14.3 Hct 43.6 MCV 95.8 MCH 31.4 MCHC 32.8 RDW Std Deviation 43.8 RDW Coeff of Dodie 12.4 Plt Count 211 MPV 10.4 Immature Gran % (Auto) 0.300 Neut % (Auto) 68.6 Lymph % (Auto) 20.3 Crane % (Auto) 6.1 Eos % (Auto) 4.0 Baso % (Auto) 0.7 Absolute Neuts (auto) 5.0 Absolute Lymphs (auto) 1.49 Nucleated RBC % 0 Sodium Potassium Chloride Carbon Dioxide Anion Gap BUN Creatinine Estim Creat Clear Calc Est GFR (MDRD) Af Amer Est GFR (MDRD) Non-Af BUN/Creatinine Ratio Glucose Calcium Total Bilirubin AST ALT Alkaline Phosphatase Troponin I High Sens Total Protein Albumin Globulin Albumin/Globulin Ratio Urine Color Yellow Urine Clarity Clear Urine pH 7.0 Ur Specific [place] 1.005 Urine Protein Negative Urine Glucose (UA) Normal Urine Ketones Negative Urine Occult Blood Negative Urine Nitrite Negative Urine Bilirubin Negative Urine Urobilinogen Normal Ur Leukocyte Esterase Negative Urine RBC 0 SEEN Urine WBC 0 SEEN Ur Squamous Epith Cells 0 SEEN Urine Bacteria 0 SEEN Urine Mucus 0 SEEN POC Glucose 96 07/19/22 09:55 WBC RBC Hgb Hct MCV MCH MCHC RDW Std Deviation RDW Coeff of Dodie Plt Count MPV Immature Gran % (Auto) Neut % (Auto) Lymph % (Auto) Crane % (Auto) Eos % (Auto) Baso % (Auto) Absolute Neuts (auto) Absolute Lymphs (auto) Nucleated RBC % Sodium 140 Potassium 4.2 Chloride 105 Carbon Dioxide 29.0 Anion Gap 6 BUN 15 Creatinine 0.86 Estim Creat Clear Calc 65.33 Est GFR (MDRD) Af Amer 89 Est GFR (MDRD) Non-Af 74 BUN/Creatinine Ratio 17.5 Glucose 105 Calcium 9.3 Total Bilirubin 0.50 AST 14 L ALT 20 Alkaline Phosphatase 90 Troponin I High Sens 4 Total Protein 7.8 Albumin 4.0 Globulin 3.8 Albumin/Globulin Ratio 1.1 Urine Color Urine Clarity Urine pH Ur Specific [place] Urine Protein Urine Glucose (UA) Urine Ketones Urine Occult Blood Urine Nitrite Urine Bilirubin Urine Urobilinogen Ur Leukocyte Esterase Urine RBC Urine WBC Ur Squamous Epith Cells Urine Bacteria Urine Mucus POC Glucose Radiography Diagnostic Testing: Clinical Impression(s) from Imaging Studies Brain CT 07/19/22 09:42 IMPRESSION: Normal unenhanced CT scan of the brain. Partial opacification of the left maxillary sinus. Electronically Signed: Finn Guardado MD at 10:17 EST , Chest X-Ray 07/19/22 09:42 IMPRESSION: Normal x-ray examination of the chest. Electronically Signed: Finn Guardado MD at 11:07 EST , Discharge Plan Triage Chief Complaint: Hypertension ED Provider: Geoff Gaspar Dx/Rx/DC Orders Clinical Impression: Elevated blood pressure reading without diagnosis of hypertension, Light-headed, Dizziness Instructions: ED Dizziness, Uncertain Cause, ED Hypertension, To Be Confirmed Prescriptions: No Action famotidine 20 MG tablet 20 mg PO BID Qty: 28 0RF Primary Care Provider: Shelby Saenz Referrals: Shelby Saenz, DO [Primary Care Provider] - 1-2 Days if not improving Disposition Disposition: Home, Self Care What to do if you have Problems For any increased pain, shortness of breath, bleeding, nausea or vomiting, chestpain, or any unexpected problems, contact your Primary Care Provider. Call [facility] ([phone]) or report to the closest Emergency Room. Call 911 if necessary. 07/19/22 1111 <Electronically signed by Geoff Gaspar MD> Cosigner Signature (if applicable): CC: Dr. Shelby Saenz, DO ~ Signed [facility] Work Phone: Evaluation noteThere may be information available, but it has not been provided by the sender.[facility] Work Phone: Evaluation noteNo assessment information available [facility] Work Phone: Instructions* Name Dates Details Patient Instructions Indication:BMI 27.0-27.9,adult Start:23-Apr-2021 Instruction Type:Provider Instructions for Treatment How to Access Health Informa tion Online using Patient Portal and [email or web address] Indication:BMI 27.0-27.9,adult Start:23-Apr-2021 Instruction Type:Patient Education Patient Instructions Indication:Nonsmoker Start:26-Mar-2021 Instruction Type:Provider Instructions for Treatment How to Access Health Informa tion Online using Patient Portal and [email or web address] Apps Indication:Nonsmoker Start:26-Mar-2021 Instruction Type:Patient Education How to access health informa tion online Indication:Nonsmoker Start:23-Aug-2019 Instruction Type:Patient Education How to access health informa tion online - Detail Indication:Nonsmoker Start:23-Aug-2019 Instruction Type:Patient Education Patient Instructions Indication:Nonsmoker Start:23-Aug-2019 Instruction Type:Provider Instructions for Treatment How to access health informa tion online Indication:Nonsmoker Start:26-Jan-2017 Instruction Type:Patient Education How to access health informa tion online - Detail Indication:Nonsmoker Start:26-Jan-2017 Instruction Type:Patient Education Patient Instructions Indication:Nonsmoker Start:26-Jan-2017 Instruction Type:Provider Instructions for Treatment How to access health informa tion online Indication:Right ear pain Start:11-Jul-2016 Instruction Type:Patient Education How to access health informa tion online - Detail Indication:Right ear pain Start:11-Jul-2016 Instruction Type:Patient Education Patient Instructions Indication:Right ear pain Start:11-Jul-2016 Instruction Type:Provider Instructions for Treatment How to access health informa tion online Indication:Dysuria Start:25-Feb-2016 Instruction Type:Patient Education How to access health informa tion online - Detail Indication:Dysuria Start:25-Feb-2016 Instruction Type:Patient Education Patient Instructions Indication:Dysuria Start:25-Feb-2016 Instruction Type:Provider Instructions for Treatment [facility] Work Phone: Instructions* Name Dates Details Patient Instructions Indication:BMI 27.0-27.9,adult Start:23-Apr-2021 Instruction Type:Provider Instructions for Treatment How to Access Health Informa tion Online using Patient Portal and [employer]rd [employer] Apps Indication:BMI 27.0-27.9,adult Start:23-Apr-2021 Instruction Type:Patient Education Patient Instructions Indication:Nonsmoker Start:26-Mar-2021 Instruction Type:Provider Instructions for Treatment How to Access Health Informa tion Online using Patient Portal and [employer]rd [employer] Apps Indication:Nonsmoker Start:26-Mar-2021 Instruction Type:Patient Education How to access health informa tion online Indication:Nonsmoker Start:23-Aug-2019 Instruction Type:Patient Education How to access health informa tion online - Detail Indication:Nonsmoker Start:23-Aug-2019 Instruction Type:Patient Education Patient Instructions Indication:Nonsmoker Start:23-Aug-2019 Instruction Type:Provider Instructions for Treatment How to access health informa tion online Indication:Nonsmoker Start:26-Jan-2017 Instruction Type:Patient Education How to access health informa tion online - Detail Indication:Nonsmoker Start:26-Jan-2017 Instruction Type:Patient Education Patient Instructions Indication:Nonsmoker Start:26-Jan-2017 Instruction Type:Provider Instructions for Treatment How to access health informa tion online Indication:Right ear pain Start:11-Jul-2016 Instruction Type:Patient Education How to access health informa tion online - Detail Indication:Right ear pain Start:11-Jul-2016 Instruction Type:Patient Education Patient Instructions Indication:Right ear pain Start:11-Jul-2016 Instruction Type:Provider Instructions for Treatment How to access health informa tion online Indication:Dysuria Start:25-Feb-2016 Instruction Type:Patient Education How to access health informa tion online - Detail Indication:Dysuria Start:25-Feb-2016 Instruction Type:Patient Education Patient Instructions Indication:Dysuria Start:25-Feb-2016 Instruction Type:Provider Instructions for Treatment [facility] Work Phone: Instructions* Instruction Description Start Date Completed [facility] Work Phone: Instructions* Name Dates Details Patient Instructions Indication:Nonsmoker Start:06-Jan-2022 Instruction Type:Provider Instructions for Treatment How to Access Health Informa tion Online using Patient Portal and [employer]rd [employer] Apps Indication:Nonsmoker Start:06-Jan-2022 Instruction Type:Patient Education Patient Instructions Indication:BMI 27.0-27.9,adult Start:23-Apr-2021 Instruction Type:Provider Instructions for Treatment How to Access Health Informa tion Online using Patient Portal and [employer]rd [employer] Apps Indication:BMI 27.0-27.9,adult Start:23-Apr-2021 Instruction Type:Patient Education Patient Instructions Indication:Nonsmoker Start:26-Mar-2021 Instruction Type:Provider Instructions for Treatment How to Access Health Informa tion Online using Patient Portal and [email or web address] Indication:Nonsmoker Start:26-Mar-2021 Instruction Type:Patient Education How to access health informa tion online Indication:Nonsmoker Start:23-Aug-2019 Instruction Type:Patient Education How to access health informa tion online - Detail Indication:Nonsmoker Start:23-Aug-2019 Instruction Type:Patient Education Patient Instructions Indication:Nonsmoker Start:23-Aug-2019 Instruction Type:Provider Instructions for Treatment How to access health informa tion online Indication:Nonsmoker Start:26-Jan-2017 Instruction Type:Patient Education How to access health informa tion online - Detail Indication:Nonsmoker Start:26-Jan-2017 Instruction Type:Patient Education Patient Instructions Indication:Nonsmoker Start:26-Jan-2017 Instruction Type:Provider Instructions for Treatment How to access health informa tion online Indication:Right ear pain Start:11-Jul-2016 Instruction Type:Patient Education How to access health informa tion online - Detail Indication:Right ear pain Start:11-Jul-2016 Instruction Type:Patient Education Patient Instructions Indication:Right ear pain Start:11-Jul-2016 Instruction Type:Provider Instructions for Treatment How to access health informa tion online Indication:Dysuria Start:25-Feb-2016 Instruction Type:Patient Education How to access health informa tion online - Detail Indication:Dysuria Start:25-Feb-2016 Instruction Type:Patient Education Patient Instructions Indication:Dysuria Start:25-Feb-2016 Instruction Type:Provider Instructions for Treatment [facility]; [facility] Work Phone: Instructions* Name Dates Details Patient Instructions Indication:Nonsmoker Start:06-Jan-2022 Instruction Type:Provider Instructions for Treatment How to Access Health Informa tion Online using Patient Portal and [employer]rd [employer] Apps Indication:Nonsmoker Start:06-Jan-2022 Instruction Type:Patient Education Patient Instructions Indication:BMI 27.0-27.9,adult Start:23-Apr-2021 Instruction Type:Provider Instructions for Treatment How to Access Health Informa tion Online using Patient Portal and [email or web address] Indication:BMI 27.0-27.9,adult Start:23-Apr-2021 Instruction Type:Patient Education Patient Instructions Indication:Nonsmoker Start:26-Mar-2021 Instruction Type:Provider Instructions for Treatment How to Access Health Informa tion Online using Patient Portal and [employer] Apps Indication:Nonsmoker Start:26-Mar-2021 Instruction Type:Patient Education How to access health informa tion online Indication:Nonsmoker Start:23-Aug-2019 Instruction Type:Patient Education How to access health informa tion online - Detail Indication:Nonsmoker Start:23-Aug-2019 Instruction Type:Patient Education Patient Instructions Indication:Nonsmoker Start:23-Aug-2019 Instruction Type:Provider Instructions for Treatment How to access health informa tion online Indication:Nonsmoker Start:26-Jan-2017 Instruction Type:Patient Education How to access health informa tion online - Detail Indication:Nonsmoker Start:26-Jan-2017 Instruction Type:Patient Education Patient Instructions Indication:Nonsmoker Start:26-Jan-2017 Instruction Type:Provider Instructions for Treatment How to access health informa tion online Indication:Right ear pain Start:11-Jul-2016 Instruction Type:Patient Education How to access health informa tion online - Detail Indication:Right ear pain Start:11-Jul-2016 Instruction Type:Patient Education Patient Instructions Indication:Right ear pain Start:11-Jul-2016 Instruction Type:Provider Instructions for Treatment How to access health informa tion online Indication:Dysuria Start:25-Feb-2016 Instruction Type:Patient Education How to access health informa tion online - Detail Indication:Dysuria Start:25-Feb-2016 Instruction Type:Patient Education Patient Instructions Indication:Dysuria Start:25-Feb-2016 Instruction Type:Provider Instructions for Treatment [facility] Work Phone: Instructions* Name Dates Details Patient Instructions Indication:Nonsmoker Start:06-Jan-2022 Instruction Type:Provider Instructions for Treatment How to Access Health Informa tion Online using Patient Portal and [employer]rd [employer] Apps Indication:Nonsmoker Start:06-Jan-2022 Instruction Type:Patient Education Patient Instructions Indication:BMI 27.0-27.9,adult Start:23-Apr-2021 Instruction Type:Provider Instructions for Treatment How to Access Health Informa tion Online using Patient Portal and [employer]rd [employer] Apps Indication:BMI 27.0-27.9,adult Start:23-Apr-2021 Instruction Type:Patient Education Patient Instructions Indication:Nonsmoker Start:26-Mar-2021 Instruction Type:Provider Instructions for Treatment How to Access Health Informa tion Online using Patient Portal and [email or web address] Indication:Nonsmoker Start:26-Mar-2021 Instruction Type:Patient Education How to access health informa tion online Indication:Nonsmoker Start:23-Aug-2019 Instruction Type:Patient Education How to access health informa tion online - Detail Indication:Nonsmoker Start:23-Aug-2019 Instruction Type:Patient Education Patient Instructions Indication:Nonsmoker Start:23-Aug-2019 Instruction Type:Provider Instructions for Treatment How to access health informa tion online Indication:Nonsmoker Start:26-Jan-2017 Instruction Type:Patient Education How to access health informa tion online - Detail Indication:Nonsmoker Start:26-Jan-2017 Instruction Type:Patient Education Patient Instructions Indication:Nonsmoker Start:26-Jan-2017 Instruction Type:Provider Instructions for Treatment How to access health informa tion online Indication:Right ear pain Start:11-Jul-2016 Instruction Type:Patient Education How to access health informa tion online - Detail Indication:Right ear pain Start:11-Jul-2016 Instruction Type:Patient Education Patient Instructions Indication:Right ear pain Start:11-Jul-2016 Instruction Type:Provider Instructions for Treatment How to access health informa tion online Indication:Dysuria Start:25-Feb-2016 Instruction Type:Patient Education How to access health informa tion online - Detail Indication:Dysuria Start:25-Feb-2016 Instruction Type:Patient Education Patient Instructions Indication:Dysuria Start:25-Feb-2016 Instruction Type:Provider Instructions for Treatment [facility]; [facility] Work Phone: Instructions* Name Dates Details Patient Instructions Indication:BMI 29.0-29.9,adult Start:23-Feb-2022 Instruction Type:Provider Instructions for Treatment How to Access Health Informa tion Online using Patient Portal and [employer]rd [employer] Apps Indication:BMI 29.0-29.9,adult Start:23-Feb-2022 Instruction Type:Patient Education Patient Instructions Indication:Nonsmoker Start:09-Feb-2022 Instruction Type:Provider Instructions for Treatment How to Access Health Informa tion Online using Patient Portal and [employer]rd [employer] Apps Indication:Nonsmoker Start:09-Feb-2022 Instruction Type:Patient Education Patient Instructions Indication:Nonsmoker Start:06-Jan-2022 Instruction Type:Provider Instructions for Treatment How to Access Health Informa tion Online using Patient Portal and [employer] Apps Indication:Nonsmoker Start:06-Jan-2022 Instruction Type:Patient Education Patient Instructions Indication:BMI 27.0-27.9,adult Start:23-Apr-2021 Instruction Type:Provider Instructions for Treatment How to Access Health Informa tion Online using Patient Portal and [employer]rd [employer] Apps Indication:BMI 27.0-27.9,adult Start:23-Apr-2021 Instruction Type:Patient Education Patient Instructions Indication:Nonsmoker Start:26-Mar-2021 Instruction Type:Provider Instructions for Treatment How to Access Health Informa tion Online using Patient Portal and [email or web address] Apps Indication:Nonsmoker Start:26-Mar-2021 Instruction Type:Patient Education How to access health informa tion online Indication:Nonsmoker Start:23-Aug-2019 Instruction Type:Patient Education How to access health informa tion online - Detail Indication:Nonsmoker Start:23-Aug-2019 Instruction Type:Patient Education Patient Instructions Indication:Nonsmoker Start:23-Aug-2019 Instruction Type:Provider Instructions for Treatment How to access health informa tion online Indication:Nonsmoker Start:26-Jan-2017 Instruction Type:Patient Education How to access health informa tion online - Detail Indication:Nonsmoker Start:26-Jan-2017 Instruction Type:Patient Education Patient Instructions Indication:Nonsmoker Start:26-Jan-2017 Instruction Type:Provider Instructions for Treatment How to access health informa tion online Indication:Right ear pain Start:11-Jul-2016 Instruction Type:Patient Education How to access health informa tion online - Detail Indication:Right ear pain Start:11-Jul-2016 Instruction Type:Patient Education Patient Instructions Indication:Right ear pain Start:11-Jul-2016 Instruction Type:Provider Instructions for Treatment How to access health informa tion online Indication:Dysuria Start:25-Feb-2016 Instruction Type:Patient Education How to access health informa tion online - Detail Indication:Dysuria Start:25-Feb-2016 Instruction Type:Patient Education Patient Instructions Indication:Dysuria Start:25-Feb-2016 Instruction Type:Provider Instructions for Treatment [facility]; [facility] Work Phone: Instructions* Name Dates Details Patient Instructions Indication:BMI 29.0-29.9,adult Start:09-Mar-2022 Instruction Type:Provider Instructions for Treatment How to Access Health Informa tion Online using Patient Portal and [employer]rd [employer] Indication:BMI 29.0-29.9,adult Start:09-Mar-2022 Instruction Type:Patient Education Patient Instructions Indication:BMI 29.0-29.9,adult Start:23-Feb-2022 Instruction Type:Provider Instructions for Treatment How to Access Health Informa tion Online using Patient Portal and [employer]rd [employer] Apps Indication:BMI 29.0-29.9,adult Start:23-Feb-2022 Instruction Type:Patient Education Patient Instructions Indication:Nonsmoker Start:09-Feb-2022 Instruction Type:Provider Instructions for Treatment How to Access Health Informa tion Online using Patient Portal and [employer] Apps Indication:Nonsmoker Start:09-Feb-2022 Instruction Type:Patient Education Patient Instructions Indication:Nonsmoker Start:06-Jan-2022 Instruction Type:Provider Instructions for Treatment How to Access Health Informa tion Online using Patient Portal and [employer] Apps Indication:Nonsmoker Start:06-Jan-2022 Instruction Type:Patient Education Patient Instructions Indication:BMI 27.0-27.9,adult Start:23-Apr-2021 Instruction Type:Provider Instructions for Treatment How to Access Health Informa tion Online using Patient Portal and [employer] Indication:BMI 27.0-27.9,adult Start:23-Apr-2021 Instruction Type:Patient Education Patient Instructions Indication:Nonsmoker Start:26-Mar-2021 Instruction Type:Provider Instructions for Treatment How to Access Health Informa tion Online using Patient Portal and [employer] Indication:Nonsmoker Start:26-Mar-2021 Instruction Type:Patient Education How to access health informa tion online Indication:Nonsmoker Start:23-Aug-2019 Instruction Type:Patient Education How to access health informa tion online - Detail Indication:Nonsmoker Start:23-Aug-2019 Instruction Type:Patient Education Patient Instructions Indication:Nonsmoker Start:23-Aug-2019 Instruction Type:Provider Instructions for Treatment How to access health informa tion online Indication:Nonsmoker Start:26-Jan-2017 Instruction Type:Patient Education How to access health informa tion online - Detail Indication:Nonsmoker Start:26-Jan-2017 Instruction Type:Patient Education Patient Instructions Indication:Nonsmoker Start:26-Jan-2017 Instruction Type:Provider Instructions for Treatment How to access health informa tion online Indication:Right ear pain Start:11-Jul-2016 Instruction Type:Patient Education How to access health informa tion online - Detail Indication:Right ear pain Start:11-Jul-2016 Instruction Type:Patient Education Patient Instructions Indication:Right ear pain Start:11-Jul-2016 Instruction Type:Provider Instructions for Treatment How to access health informa tion online Indication:Dysuria Start:25-Feb-2016 Instruction Type:Patient Education How to access health informa tion online - Detail Indication:Dysuria Start:25-Feb-2016 Instruction Type:Patient Education Patient Instructions Indication:Dysuria Start:25-Feb-2016 Instruction Type:Provider Instructions for Treatment [facility]; [facility] Work Phone: Instructions* Name Dates Details Patient Instructions Indication:Nonsmoker Start:23-Mar-2022 Instruction Type:Provider Instructions for Treatment How to Access Health Informa tion Online using Patient Portal and [employer] Indication:Nonsmoker Start:23-Mar-2022 Instruction Type:Patient Education Patient Instructions Indication:BMI 29.0-29.9,adult Start:09-Mar-2022 Instruction Type:Provider Instructions for Treatment How to Access Health Informa tion Online using Patient Portal and [employer] Indication:BMI 29.0-29.9,adult Start:09-Mar-2022 Instruction Type:Patient Education Patient Instructions Indication:BMI 29.0-29.9,adult Start:23-Feb-2022 Instruction Type:Provider Instructions for Treatment How to Access Health Informa tion Online using Patient Portal and [employer] Indication:BMI 29.0-29.9,adult Start:23-Feb-2022 Instruction Type:Patient Education Patient Instructions Indication:Nonsmoker Start:09-Feb-2022 Instruction Type:Provider Instructions for Treatment How to Access Health Informa tion Online using Patient Portal and [employer] Indication:Nonsmoker Start:09-Feb-2022 Instruction Type:Patient Education Patient Instructions Indication:Nonsmoker Start:06-Jan-2022 Instruction Type:Provider Instructions for Treatment How to Access Health Informa tion Online using Patient Portal and [employer] Indication:Nonsmoker Start:06-Jan-2022 Instruction Type:Patient Education Patient Instructions Indication:BMI 27.0-27.9,adult Start:23-Apr-2021 Instruction Type:Provider Instructions for Treatment How to Access Health Informa tion Online using Patient Portal and [employer] Indication:BMI 27.0-27.9,adult Start:23-Apr-2021 Instruction Type:Patient Education Patient Instructions Indication:Nonsmoker Start:26-Mar-2021 Instruction Type:Provider Instructions for Treatment How to Access Health Informa tion Online using Patient Portal and [employer] Indication:Nonsmoker Start:26-Mar-2021 Instruction Type:Patient Education How to access health informa tion online Indication:Nonsmoker Start:23-Aug-2019 Instruction Type:Patient Education How to access health informa tion online - Detail Indication:Nonsmoker Start:23-Aug-2019 Instruction Type:Patient Education Patient Instructions Indication:Nonsmoker Start:23-Aug-2019 Instruction Type:Provider Instructions for Treatment How to access health informa tion online Indication:Nonsmoker Start:26-Jan-2017 Instruction Type:Patient Education How to access health informa tion online - Detail Indication:Nonsmoker Start:26-Jan-2017 Instruction Type:Patient Education Patient Instructions Indication:Nonsmoker Start:26-Jan-2017 Instruction Type:Provider Instructions for Treatment How to access health informa tion online Indication:Right ear pain Start:11-Jul-2016 Instruction Type:Patient Education How to access health informa tion online - Detail Indication:Right ear pain Start:11-Jul-2016 Instruction Type:Patient Education Patient Instructions Indication:Right ear pain Start:11-Jul-2016 Instruction Type:Provider Instructions for Treatment How to access health informa tion online Indication:Dysuria Start:25-Feb-2016 Instruction Type:Patient Education How to access health informa tion online - Detail Indication:Dysuria Start:25-Feb-2016 Instruction Type:Patient Education Patient Instructions Indication:Dysuria Start:25-Feb-2016 Instruction Type:Provider Instructions for Treatment [facility]; [facility] Work Phone: Instructions* Name Dates Details Patient Instructions Indication:BMI 26.0-26.9,adult Start:06-Apr-2022 Instruction Type:Provider Instructions for Treatment How to Access Health Informa tion Online using Patient Portal and [employer] Indication:BMI 26.0-26.9,adult Start:06-Apr-2022 Instruction Type:Patient Education Patient Instructions Indication:Nonsmoker Start:23-Mar-2022 Instruction Type:Provider Instructions for Treatment How to Access Health Informa tion Online using Patient Portal and [employer] Indication:Nonsmoker Start:23-Mar-2022 Instruction Type:Patient Education Patient Instructions Indication:BMI 29.0-29.9,adult Start:09-Mar-2022 Instruction Type:Provider Instructions for Treatment How to Access Health Informa tion Online using Patient Portal and [employer] Indication:BMI 29.0-29.9,adult Start:09-Mar-2022 Instruction Type:Patient Education Patient Instructions Indication:BMI 29.0-29.9,adult Start:23-Feb-2022 Instruction Type:Provider Instructions for Treatment How to Access Health Informa tion Online using Patient Portal and [employer] Indication:BMI 29.0-29.9,adult Start:23-Feb-2022 Instruction Type:Patient Education Patient Instructions Indication:Nonsmoker Start:09-Feb-2022 Instruction Type:Provider Instructions for Treatment How to Access Health Informa tion Online using Patient Portal and [employer] Indication:Nonsmoker Start:09-Feb-2022 Instruction Type:Patient Education Patient Instructions Indication:Nonsmoker Start:06-Jan-2022 Instruction Type:Provider Instructions for Treatment How to Access Health Informa tion Online using Patient Portal and [employer] Indication:Nonsmoker Start:06-Jan-2022 Instruction Type:Patient Education Patient Instructions Indication:BMI 27.0-27.9,adult Start:23-Apr-2021 Instruction Type:Provider Instructions for Treatment How to Access Health Informa tion Online using Patient Portal and [employer] Indication:BMI 27.0-27.9,adult Start:23-Apr-2021 Instruction Type:Patient Education Patient Instructions Indication:Nonsmoker Start:26-Mar-2021 Instruction Type:Provider Instructions for Treatment How to Access Health Informa tion Online using Patient Portal and [employer] Indication:Nonsmoker Start:26-Mar-2021 Instruction Type:Patient Education How to access health informa tion online Indication:Nonsmoker Start:23-Aug-2019 Instruction Type:Patient Education How to access health informa tion online - Detail Indication:Nonsmoker Start:23-Aug-2019 Instruction Type:Patient Education Patient Instructions Indication:Nonsmoker Start:23-Aug-2019 Instruction Type:Provider Instructions for Treatment How to access health informa tion online Indication:Nonsmoker Start:26-Jan-2017 Instruction Type:Patient Education How to access health informa tion online - Detail Indication:Nonsmoker Start:26-Jan-2017 Instruction Type:Patient Education Patient Instructions Indication:Nonsmoker Start:26-Jan-2017 Instruction Type:Provider Instructions for Treatment How to access health informa tion online Indication:Right ear pain Start:11-Jul-2016 Instruction Type:Patient Education How to access health informa tion online - Detail Indication:Right ear pain Start:11-Jul-2016 Instruction Type:Patient Education Patient Instructions Indication:Right ear pain Start:11-Jul-2016 Instruction Type:Provider Instructions for Treatment How to access health informa tion online Indication:Dysuria Start:25-Feb-2016 Instruction Type:Patient Education How to access health informa tion online - Detail Indication:Dysuria Start:25-Feb-2016 Instruction Type:Patient Education Patient Instructions Indication:Dysuria Start:25-Feb-2016 Instruction Type:Provider Instructions for Treatment [facility]; [facility] Work Phone: Instructions* Name Dates Details Patient Instructions Indication:BMI 26.0-26.9,adult Start:06-Apr-2022 Instruction Type:Provider Instructions for Treatment How to Access Health Informa tion Online using Patient Portal and [employer] Indication:BMI 26.0-26.9,adult Start:06-Apr-2022 Instruction Type:Patient Education Patient Instructions Indication:Nonsmoker Start:23-Mar-2022 Instruction Type:Provider Instructions for Treatment How to Access Health Informa tion Online using Patient Portal and [employer] Indication:Nonsmoker Start:23-Mar-2022 Instruction Type:Patient Education Patient Instructions Indication:BMI 29.0-29.9,adult Start:09-Mar-2022 Instruction Type:Provider Instructions for Treatment How to Access Health Informa tion Online using Patient Portal and [employer] Indication:BMI 29.0-29.9,adult Start:09-Mar-2022 Instruction Type:Patient Education Patient Instructions Indication:BMI 29.0-29.9,adult Start:23-Feb-2022 Instruction Type:Provider Instructions for Treatment How to Access Health Informa tion Online using Patient Portal and [employer] Indication:BMI 29.0-29.9,adult Start:23-Feb-2022 Instruction Type:Patient Education Patient Instructions Indication:Nonsmoker Start:09-Feb-2022 Instruction Type:Provider Instructions for Treatment How to Access Health Informa tion Online using Patient Portal and [employer] Indication:Nonsmoker Start:09-Feb-2022 Instruction Type:Patient Education Patient Instructions Indication:Nonsmoker Start:06-Jan-2022 Instruction Type:Provider Instructions for Treatment How to Access Health Informa tion Online using Patient Portal and [employer] Indication:Nonsmoker Start:06-Jan-2022 Instruction Type:Patient Education Patient Instructions Indication:BMI 27.0-27.9,adult Start:23-Apr-2021 Instruction Type:Provider Instructions for Treatment How to Access Health Informa tion Online using Patient Portal and [employer] Indication:BMI 27.0-27.9,adult Start:23-Apr-2021 Instruction Type:Patient Education Patient Instructions Indication:Nonsmoker Start:26-Mar-2021 Instruction Type:Provider Instructions for Treatment How to Access Health Informa tion Online using Patient Portal and [employer] Indication:Nonsmoker Start:26-Mar-2021 Instruction Type:Patient Education How to access health informa tion online Indication:Nonsmoker Start:23-Aug-2019 Instruction Type:Patient Education How to access health informa tion online - Detail Indication:Nonsmoker Start:23-Aug-2019 Instruction Type:Patient Education Patient Instructions Indication:Nonsmoker Start:23-Aug-2019 Instruction Type:Provider Instructions for Treatment How to access health informa tion online Indication:Nonsmoker Start:26-Jan-2017 Instruction Type:Patient Education How to access health informa tion online - Detail Indication:Nonsmoker Start:26-Jan-2017 Instruction Type:Patient Education Patient Instructions Indication:Nonsmoker Start:26-Jan-2017 Instruction Type:Provider Instructions for Treatment How to access health informa tion online Indication:Right ear pain Start:11-Jul-2016 Instruction Type:Patient Education How to access health informa tion online - Detail Indication:Right ear pain Start:11-Jul-2016 Instruction Type:Patient Education Patient Instructions Indication:Right ear pain Start:11-Jul-2016 Instruction Type:Provider Instructions for Treatment How to access health informa tion online Indication:Dysuria Start:25-Feb-2016 Instruction Type:Patient Education How to access health informa tion online - Detail Indication:Dysuria Start:25-Feb-2016 Instruction Type:Patient Education Patient Instructions Indication:Dysuria Start:25-Feb-2016 Instruction Type:Provider Instructions for Treatment [facility]; [facility] Work Phone: Instructions* Name Dates Details Patient Instructions Indication:Nonsmoker Start:20-Apr-2022 Instruction Type:Provider Instructions for Treatment How to Access Health Informa tion Online using Patient Portal and [employer] Indication:Nonsmoker Start:20-Apr-2022 Instruction Type:Patient Education Patient Instructions Indication:BMI 26.0-26.9,adult Start:06-Apr-2022 Instruction Type:Provider Instructions for Treatment How to Access Health Informa tion Online using Patient Portal and [employer] Indication:BMI 26.0-26.9,adult Start:06-Apr-2022 Instruction Type:Patient Education Patient Instructions Indication:Nonsmoker Start:23-Mar-2022 Instruction Type:Provider Instructions for Treatment How to Access Health Informa tion Online using Patient Portal and [employer] Indication:Nonsmoker Start:23-Mar-2022 Instruction Type:Patient Education Patient Instructions Indication:BMI 29.0-29.9,adult Start:09-Mar-2022 Instruction Type:Provider Instructions for Treatment How to Access Health Informa tion Online using Patient Portal and [employer] Indication:BMI 29.0-29.9,adult Start:09-Mar-2022 Instruction Type:Patient Education Patient Instructions Indication:BMI 29.0-29.9,adult Start:23-Feb-2022 Instruction Type:Provider Instructions for Treatment How to Access Health Informa tion Online using Patient Portal and [employer] Indication:BMI 29.0-29.9,adult Start:23-Feb-2022 Instruction Type:Patient Education Patient Instructions Indication:Nonsmoker Start:09-Feb-2022 Instruction Type:Provider Instructions for Treatment How to Access Health Informa tion Online using Patient Portal and [employer] Indication:Nonsmoker Start:09-Feb-2022 Instruction Type:Patient Education Patient Instructions Indication:Nonsmoker Start:06-Jan-2022 Instruction Type:Provider Instructions for Treatment How to Access Health Informa tion Online using Patient Portal and [employer] Indication:Nonsmoker Start:06-Jan-2022 Instruction Type:Patient Education Patient Instructions Indication:BMI 27.0-27.9,adult Start:23-Apr-2021 Instruction Type:Provider Instructions for Treatment How to Access Health Informa tion Online using Patient Portal and [employer] Indication:BMI 27.0-27.9,adult Start:23-Apr-2021 Instruction Type:Patient Education Patient Instructions Indication:Nonsmoker Start:26-Mar-2021 Instruction Type:Provider Instructions for Treatment How to Access Health Informa tion Online using Patient Portal and [employer] Indication:Nonsmoker Start:26-Mar-2021 Instruction Type:Patient Education How to access health informa tion online Indication:Nonsmoker Start:23-Aug-2019 Instruction Type:Patient Education How to access health informa tion online - Detail Indication:Nonsmoker Start:23-Aug-2019 Instruction Type:Patient Education Patient Instructions Indication:Nonsmoker Start:23-Aug-2019 Instruction Type:Provider Instructions for Treatment How to access health informa tion online Indication:Nonsmoker Start:26-Jan-2017 Instruction Type:Patient Education How to access health informa tion online - Detail Indication:Nonsmoker Start:26-Jan-2017 Instruction Type:Patient Education Patient Instructions Indication:Nonsmoker Start:26-Jan-2017 Instruction Type:Provider Instructions for Treatment How to access health informa tion online Indication:Right ear pain Start:11-Jul-2016 Instruction Type:Patient Education How to access health informa tion online - Detail Indication:Right ear pain Start:11-Jul-2016 Instruction Type:Patient Education Patient Instructions Indication:Right ear pain Start:11-Jul-2016 Instruction Type:Provider Instructions for Treatment How to access health informa tion online Indication:Dysuria Start:25-Feb-2016 Instruction Type:Patient Education How to access health informa tion online - Detail Indication:Dysuria Start:25-Feb-2016 Instruction Type:Patient Education Patient Instructions Indication:Dysuria Start:25-Feb-2016 Instruction Type:Provider Instructions for Treatment [facility]; [facility] Work Phone: Instructions* Name Dates Details Patient Instructions Indication:BMI 25.0-25.9,adult Start:18-May-2022 Instruction Type:Provider Instructions for Treatment How to Access Health Informa tion Online using Patient Portal and [employer] Indication:BMI 25.0-25.9,adult Start:18-May-2022 Instruction Type:Patient Education Patient Instructions Indication:Nonsmoker Start:20-Apr-2022 Instruction Type:Provider Instructions for Treatment How to Access Health Informa tion Online using Patient Portal and [employer] Apps Indication:Nonsmoker Start:20-Apr-2022 Instruction Type:Patient Education Patient Instructions Indication:BMI 26.0-26.9,adult Start:06-Apr-2022 Instruction Type:Provider Instructions for Treatment How to Access Health Informa tion Online using Patient Portal and [employer] Indication:BMI 26.0-26.9,adult Start:06-Apr-2022 Instruction Type:Patient Education Patient Instructions Indication:Nonsmoker Start:23-Mar-2022 Instruction Type:Provider Instructions for Treatment How to Access Health Informa tion Online using Patient Portal and [employer] Indication:Nonsmoker Start:23-Mar-2022 Instruction Type:Patient Education Patient Instructions Indication:BMI 29.0-29.9,adult Start:09-Mar-2022 Instruction Type:Provider Instructions for Treatment How to Access Health Informa tion Online using Patient Portal and [employer] Indication:BMI 29.0-29.9,adult Start:09-Mar-2022 Instruction Type:Patient Education Patient Instructions Indication:BMI 29.0-29.9,adult Start:23-Feb-2022 Instruction Type:Provider Instructions for Treatment How to Access Health Informa tion Online using Patient Portal and [employer] Indication:BMI 29.0-29.9,adult Start:23-Feb-2022 Instruction Type:Patient Education Patient Instructions Indication:Nonsmoker Start:09-Feb-2022 Instruction Type:Provider Instructions for Treatment How to Access Health Informa tion Online using Patient Portal and [employer] Indication:Nonsmoker Start:09-Feb-2022 Instruction Type:Patient Education Patient Instructions Indication:Nonsmoker Start:06-Jan-2022 Instruction Type:Provider Instructions for Treatment How to Access Health Informa tion Online using Patient Portal and [employer] Indication:Nonsmoker Start:06-Jan-2022 Instruction Type:Patient Education Patient Instructions Indication:BMI 27.0-27.9,adult Start:23-Apr-2021 Instruction Type:Provider Instructions for Treatment How to Access Health Informa tion Online using Patient Portal and [employer] Indication:BMI 27.0-27.9,adult Start:23-Apr-2021 Instruction Type:Patient Education Patient Instructions Indication:Nonsmoker Start:26-Mar-2021 Instruction Type:Provider Instructions for Treatment How to Access Health Informa tion Online using Patient Portal and [employer] Indication:Nonsmoker Start:26-Mar-2021 Instruction Type:Patient Education How to access health informa tion online Indication:Nonsmoker Start:23-Aug-2019 Instruction Type:Patient Education How to access health informa tion online - Detail Indication:Nonsmoker Start:23-Aug-2019 Instruction Type:Patient Education Patient Instructions Indication:Nonsmoker Start:23-Aug-2019 Instruction Type:Provider Instructions for Treatment How to access health informa tion online Indication:Nonsmoker Start:26-Jan-2017 Instruction Type:Patient Education How to access health informa tion online - Detail Indication:Nonsmoker Start:26-Jan-2017 Instruction Type:Patient Education Patient Instructions Indication:Nonsmoker Start:26-Jan-2017 Instruction Type:Provider Instructions for Treatment How to access health informa tion online Indication:Right ear pain Start:11-Jul-2016 Instruction Type:Patient Education How to access health informa tion online - Detail Indication:Right ear pain Start:11-Jul-2016 Instruction Type:Patient Education Patient Instructions Indication:Right ear pain Start:11-Jul-2016 Instruction Type:Provider Instructions for Treatment How to access health informa tion online Indication:Dysuria Start:25-Feb-2016 Instruction Type:Patient Education How to access health informa tion online - Detail Indication:Dysuria Start:25-Feb-2016 Instruction Type:Patient Education Patient Instructions Indication:Dysuria Start:25-Feb-2016 Instruction Type:Provider Instructions for Treatment [facility]; [facility] Work Phone: Instructions* Name Dates Details Patient Instructions Indication:BMI 25.0-25.9,adult Start:18-May-2022 Instruction Type:Provider Instructions for Treatment How to Access Health Informa tion Online using Patient Portal and [employer] Indication:BMI 25.0-25.9,adult Start:18-May-2022 Instruction Type:Patient Education Patient Instructions Indication:Nonsmoker Start:20-Apr-2022 Instruction Type:Provider Instructions for Treatment How to Access Health Informa tion Online using Patient Portal and [employer] Indication:Nonsmoker Start:20-Apr-2022 Instruction Type:Patient Education Patient Instructions Indication:BMI 26.0-26.9,adult Start:06-Apr-2022 Instruction Type:Provider Instructions for Treatment How to Access Health Informa tion Online using Patient Portal and [employer] Indication:BMI 26.0-26.9,adult Start:06-Apr-2022 Instruction Type:Patient Education Patient Instructions Indication:Nonsmoker Start:23-Mar-2022 Instruction Type:Provider Instructions for Treatment How to Access Health Informa tion Online using Patient Portal and [employer] Apps Indication:Nonsmoker Start:23-Mar-2022 Instruction Type:Patient Education Patient Instructions Indication:BMI 29.0-29.9,adult Start:09-Mar-2022 Instruction Type:Provider Instructions for Treatment How to Access Health Informa tion Online using Patient Portal and [email or web address] Apps Indication:BMI 29.0-29.9,adult Start:09-Mar-2022 Instruction Type:Patient Education Patient Instructions Indication:BMI 29.0-29.9,adult Start:23-Feb-2022 Instruction Type:Provider Instructions for Treatment How to Access Health Informa tion Online using Patient Portal and [employer] Apps Indication:BMI 29.0-29.9,adult Start:23-Feb-2022 Instruction Type:Patient Education Patient Instructions Indication:Nonsmoker Start:09-Feb-2022 Instruction Type:Provider Instructions for Treatment How to Access Health Informa tion Online using Patient Portal and [employer] Indication:Nonsmoker Start:09-Feb-2022 Instruction Type:Patient Education Patient Instructions Indication:Nonsmoker Start:06-Jan-2022 Instruction Type:Provider Instructions for Treatment How to Access Health Informa tion Online using Patient Portal and [employer] Indication:Nonsmoker Start:06-Jan-2022 Instruction Type:Patient Education Patient Instructions Indication:BMI 27.0-27.9,adult Start:23-Apr-2021 Instruction Type:Provider Instructions for Treatment How to Access Health Informa tion Online using Patient Portal and [employer] Apps Indication:BMI 27.0-27.9,adult Start:23-Apr-2021 Instruction Type:Patient Education Patient Instructions Indication:Nonsmoker Start:26-Mar-2021 Instruction Type:Provider Instructions for Treatment How to Access Health Informa tion Online using Patient Portal and [employer] Apps Indication:Nonsmoker Start:26-Mar-2021 Instruction Type:Patient Education How to access health informa tion online Indication:Nonsmoker Start:23-Aug-2019 Instruction Type:Patient Education How to access health informa tion online - Detail Indication:Nonsmoker Start:23-Aug-2019 Instruction Type:Patient Education Patient Instructions Indication:Nonsmoker Start:23-Aug-2019 Instruction Type:Provider Instructions for Treatment How to access health informa tion online Indication:Nonsmoker Start:26-Jan-2017 Instruction Type:Patient Education How to access health informa tion online - Detail Indication:Nonsmoker Start:26-Jan-2017 Instruction Type:Patient Education Patient Instructions Indication:Nonsmoker Start:26-Jan-2017 Instruction Type:Provider Instructions for Treatment How to access health informa tion online Indication:Right ear pain Start:11-Jul-2016 Instruction Type:Patient Education How to access health informa tion online - Detail Indication:Right ear pain Start:11-Jul-2016 Instruction Type:Patient Education Patient Instructions Indication:Right ear pain Start:11-Jul-2016 Instruction Type:Provider Instructions for Treatment How to access health informa tion online Indication:Dysuria Start:25-Feb-2016 Instruction Type:Patient Education How to access health informa tion online - Detail Indication:Dysuria Start:25-Feb-2016 Instruction Type:Patient Education Patient Instructions Indication:Dysuria Start:25-Feb-2016 Instruction Type:Provider Instructions for Treatment [facility]; [facility] Work Phone: Instructions* Name Dates Details Patient Instructions Indication:Nonsmoker Start:29-Jun-2022 Instruction Type:Provider Instructions for Treatment How to Access Health Informa tion Online using Patient Portal and [employer] Indication:Nonsmoker Start:29-Jun-2022 Instruction Type:Patient Education Patient Instructions Indication:BMI 25.0-25.9,adult Start:18-May-2022 Instruction Type:Provider Instructions for Treatment How to Access Health Informa tion Online using Patient Portal and [employer] Indication:BMI 25.0-25.9,adult Start:18-May-2022 Instruction Type:Patient Education Patient Instructions Indication:Nonsmoker Start:20-Apr-2022 Instruction Type:Provider Instructions for Treatment How to Access Health Informa tion Online using Patient Portal and [employer] Indication:Nonsmoker Start:20-Apr-2022 Instruction Type:Patient Education Patient Instructions Indication:BMI 26.0-26.9,adult Start:06-Apr-2022 Instruction Type:Provider Instructions for Treatment How to Access Health Informa tion Online using Patient Portal and [employer] Indication:BMI 26.0-26.9,adult Start:06-Apr-2022 Instruction Type:Patient Education Patient Instructions Indication:Nonsmoker Start:23-Mar-2022 Instruction Type:Provider Instructions for Treatment How to Access Health Informa tion Online using Patient Portal and [employer] Apps Indication:Nonsmoker Start:23-Mar-2022 Instruction Type:Patient Education Patient Instructions Indication:BMI 29.0-29.9,adult Start:09-Mar-2022 Instruction Type:Provider Instructions for Treatment How to Access Health Informa tion Online using Patient Portal and [employer] Indication:BMI 29.0-29.9,adult Start:09-Mar-2022 Instruction Type:Patient Education Patient Instructions Indication:BMI 29.0-29.9,adult Start:23-Feb-2022 Instruction Type:Provider Instructions for Treatment How to Access Health Informa tion Online using Patient Portal and [employer] Indication:BMI 29.0-29.9,adult Start:23-Feb-2022 Instruction Type:Patient Education Patient Instructions Indication:Nonsmoker Start:09-Feb-2022 Instruction Type:Provider Instructions for Treatment How to Access Health Informa tion Online using Patient Portal and [employer] Indication:Nonsmoker Start:09-Feb-2022 Instruction Type:Patient Education Patient Instructions Indication:Nonsmoker Start:06-Jan-2022 Instruction Type:Provider Instructions for Treatment How to Access Health Informa tion Online using Patient Portal and [employer] Indication:Nonsmoker Start:06-Jan-2022 Instruction Type:Patient Education Patient Instructions Indication:BMI 27.0-27.9,adult Start:23-Apr-2021 Instruction Type:Provider Instructions for Treatment How to Access Health Informa tion Online using Patient Portal and [employer] Indication:BMI 27.0-27.9,adult Start:23-Apr-2021 Instruction Type:Patient Education Patient Instructions Indication:Nonsmoker Start:26-Mar-2021 Instruction Type:Provider Instructions for Treatment How to Access Health Informa tion Online using Patient Portal and [employer] Indication:Nonsmoker Start:26-Mar-2021 Instruction Type:Patient Education How to access health informa tion online Indication:Nonsmoker Start:23-Aug-2019 Instruction Type:Patient Education How to access health informa tion online - Detail Indication:Nonsmoker Start:23-Aug-2019 Instruction Type:Patient Education Patient Instructions Indication:Nonsmoker Start:23-Aug-2019 Instruction Type:Provider Instructions for Treatment How to access health informa tion online Indication:Nonsmoker Start:26-Jan-2017 Instruction Type:Patient Education How to access health informa tion online - Detail Indication:Nonsmoker Start:26-Jan-2017 Instruction Type:Patient Education Patient Instructions Indication:Nonsmoker Start:26-Jan-2017 Instruction Type:Provider Instructions for Treatment How to access health informa tion online Indication:Right ear pain Start:11-Jul-2016 Instruction Type:Patient Education How to access health informa tion online - Detail Indication:Right ear pain Start:11-Jul-2016 Instruction Type:Patient Education Patient Instructions Indication:Right ear pain Start:11-Jul-2016 Instruction Type:Provider Instructions for Treatment How to access health informa tion online Indication:Dysuria Start:25-Feb-2016 Instruction Type:Patient Education How to access health informa tion online - Detail Indication:Dysuria Start:25-Feb-2016 Instruction Type:Patient Education Patient Instructions Indication:Dysuria Start:25-Feb-2016 Instruction Type:Provider Instructions for Treatment [facility]; [facility] Work Phone: Instructions* Name Dates Details Patient Instructions Indication:Nonsmoker Start:29-Jun-2022 Instruction Type:Provider Instructions for Treatment How to Access Health Informa tion Online using Patient Portal and [employer] Indication:Nonsmoker Start:29-Jun-2022 Instruction Type:Patient Education Patient Instructions Indication:BMI 25.0-25.9,adult Start:18-May-2022 Instruction Type:Provider Instructions for Treatment How to Access Health Informa tion Online using Patient Portal and [employer]rd [employer] Apps Indication:BMI 25.0-25.9,adult Start:18-May-2022 Instruction Type:Patient Education Patient Instructions Indication:Nonsmoker Start:20-Apr-2022 Instruction Type:Provider Instructions for Treatment How to Access Health Informa tion Online using Patient Portal and [employer] Indication:Nonsmoker Start:20-Apr-2022 Instruction Type:Patient Education Patient Instructions Indication:BMI 26.0-26.9,adult Start:06-Apr-2022 Instruction Type:Provider Instructions for Treatment How to Access Health Informa tion Online using Patient Portal and [employer] Indication:BMI 26.0-26.9,adult Start:06-Apr-2022 Instruction Type:Patient Education Patient Instructions Indication:Nonsmoker Start:23-Mar-2022 Instruction Type:Provider Instructions for Treatment How to Access Health Informa tion Online using Patient Portal and [employer] Indication:Nonsmoker Start:23-Mar-2022 Instruction Type:Patient Education Patient Instructions Indication:BMI 29.0-29.9,adult Start:09-Mar-2022 Instruction Type:Provider Instructions for Treatment How to Access Health Informa tion Online using Patient Portal and [employer] Indication:BMI 29.0-29.9,adult Start:09-Mar-2022 Instruction Type:Patient Education Patient Instructions Indication:BMI 29.0-29.9,adult Start:23-Feb-2022 Instruction Type:Provider Instructions for Treatment How to Access Health Informa tion Online using Patient Portal and [employer] Indication:BMI 29.0-29.9,adult Start:23-Feb-2022 Instruction Type:Patient Education Patient Instructions Indication:Nonsmoker Start:09-Feb-2022 Instruction Type:Provider Instructions for Treatment How to Access Health Informa tion Online using Patient Portal and [employer] Indication:Nonsmoker Start:09-Feb-2022 Instruction Type:Patient Education Patient Instructions Indication:Nonsmoker Start:06-Jan-2022 Instruction Type:Provider Instructions for Treatment How to Access Health Informa tion Online using Patient Portal and [employer] Indication:Nonsmoker Start:06-Jan-2022 Instruction Type:Patient Education Patient Instructions Indication:BMI 27.0-27.9,adult Start:23-Apr-2021 Instruction Type:Provider Instructions for Treatment How to Access Health Informa tion Online using Patient Portal and [employer] Indication:BMI 27.0-27.9,adult Start:23-Apr-2021 Instruction Type:Patient Education Patient Instructions Indication:Nonsmoker Start:26-Mar-2021 Instruction Type:Provider Instructions for Treatment How to Access Health Informa tion Online using Patient Portal and [employer] Indication:Nonsmoker Start:26-Mar-2021 Instruction Type:Patient Education How to access health informa tion online Indication:Nonsmoker Start:23-Aug-2019 Instruction Type:Patient Education How to access health informa tion online - Detail Indication:Nonsmoker Start:23-Aug-2019 Instruction Type:Patient Education Patient Instructions Indication:Nonsmoker Start:23-Aug-2019 Instruction Type:Provider Instructions for Treatment How to access health informa tion online Indication:Nonsmoker Start:26-Jan-2017 Instruction Type:Patient Education How to access health informa tion online - Detail Indication:Nonsmoker Start:26-Jan-2017 Instruction Type:Patient Education Patient Instructions Indication:Nonsmoker Start:26-Jan-2017 Instruction Type:Provider Instructions for Treatment How to access health informa tion online Indication:Right ear pain Start:11-Jul-2016 Instruction Type:Patient Education How to access health informa tion online - Detail Indication:Right ear pain Start:11-Jul-2016 Instruction Type:Patient Education Patient Instructions Indication:Right ear pain Start:11-Jul-2016 Instruction Type:Provider Instructions for Treatment How to access health informa tion online Indication:Dysuria Start:25-Feb-2016 Instruction Type:Patient Education How to access health informa tion online - Detail Indication:Dysuria Start:25-Feb-2016 Instruction Type:Patient Education Patient Instructions Indication:Dysuria Start:25-Feb-2016 Instruction Type:Provider Instructions for Treatment [facility]; [facility] Work Phone: Instructions* Name Dates Details Patient Instructions Indication:BMI 30.0-30.9,adult Start:19-Oct-2022 Instruction Type:Provider Instructions for Treatment How to Access Health Informa tion Online using Patient Portal and [employer] Indication:BMI 30.0-30.9,adult Start:19-Oct-2022 Instruction Type:Patient Education Patient Instructions Indication:Nonsmoker Start:29-Jun-2022 Instruction Type:Provider Instructions for Treatment How to Access Health Informa tion Online using Patient Portal and [employer] Indication:Nonsmoker Start:29-Jun-2022 Instruction Type:Patient Education Patient Instructions Indication:BMI 25.0-25.9,adult Start:18-May-2022 Instruction Type:Provider Instructions for Treatment How to Access Health Informa tion Online using Patient Portal and [employer] Indication:BMI 25.0-25.9,adult Start:18-May-2022 Instruction Type:Patient Education Patient Instructions Indication:Nonsmoker Start:20-Apr-2022 Instruction Type:Provider Instructions for Treatment How to Access Health Informa tion Online using Patient Portal and [employer] Indication:Nonsmoker Start:20-Apr-2022 Instruction Type:Patient Education Patient Instructions Indication:BMI 26.0-26.9,adult Start:06-Apr-2022 Instruction Type:Provider Instructions for Treatment How to Access Health Informa tion Online using Patient Portal and [employer] Indication:BMI 26.0-26.9,adult Start:06-Apr-2022 Instruction Type:Patient Education Patient Instructions Indication:Nonsmoker Start:23-Mar-2022 Instruction Type:Provider Instructions for Treatment How to Access Health Informa tion Online using Patient Portal and [employer] Indication:Nonsmoker Start:23-Mar-2022 Instruction Type:Patient Education Patient Instructions Indication:BMI 29.0-29.9,adult Start:09-Mar-2022 Instruction Type:Provider Instructions for Treatment How to Access Health Informa tion Online using Patient Portal and [employer] Indication:BMI 29.0-29.9,adult Start:09-Mar-2022 Instruction Type:Patient Education Patient Instructions Indication:BMI 29.0-29.9,adult Start:23-Feb-2022 Instruction Type:Provider Instructions for Treatment How to Access Health Informa tion Online using Patient Portal and [employer] Indication:BMI 29.0-29.9,adult Start:23-Feb-2022 Instruction Type:Patient Education Patient Instructions Indication:Nonsmoker Start:09-Feb-2022 Instruction Type:Provider Instructions for Treatment How to Access Health Informa tion Online using Patient Portal and [employer] Apps Indication:Nonsmoker Start:09-Feb-2022 Instruction Type:Patient Education Patient Instructions Indication:Nonsmoker Start:06-Jan-2022 Instruction Type:Provider Instructions for Treatment How to Access Health Informa tion Online using Patient Portal and [employer] Indication:Nonsmoker Start:06-Jan-2022 Instruction Type:Patient Education Patient Instructions Indication:BMI 27.0-27.9,adult Start:23-Apr-2021 Instruction Type:Provider Instructions for Treatment How to Access Health Informa tion Online using Patient Portal and [employer] Indication:BMI 27.0-27.9,adult Start:23-Apr-2021 Instruction Type:Patient Education Patient Instructions Indication:Nonsmoker Start:26-Mar-2021 Instruction Type:Provider Instructions for Treatment How to Access Health Informa tion Online using Patient Portal and [employer] Indication:Nonsmoker Start:26-Mar-2021 Instruction Type:Patient Education How to access health informa tion online Indication:Nonsmoker Start:23-Aug-2019 Instruction Type:Patient Education How to access health informa tion online - Detail Indication:Nonsmoker Start:23-Aug-2019 Instruction Type:Patient Education Patient Instructions Indication:Nonsmoker Start:23-Aug-2019 Instruction Type:Provider Instructions for Treatment How to access health informa tion online Indication:Nonsmoker Start:26-Jan-2017 Instruction Type:Patient Education How to access health informa tion online - Detail Indication:Nonsmoker Start:26-Jan-2017 Instruction Type:Patient Education Patient Instructions Indication:Nonsmoker Start:26-Jan-2017 Instruction Type:Provider Instructions for Treatment How to access health informa tion online Indication:Right ear pain Start:11-Jul-2016 Instruction Type:Patient Education How to access health informa tion online - Detail Indication:Right ear pain Start:11-Jul-2016 Instruction Type:Patient Education Patient Instructions Indication:Right ear pain Start:11-Jul-2016 Instruction Type:Provider Instructions for Treatment How to access health informa tion online Indication:Dysuria Start:25-Feb-2016 Instruction Type:Patient Education How to access health informa tion online - Detail Indication:Dysuria Start:25-Feb-2016 Instruction Type:Patient Education Patient Instructions Indication:Dysuria Start:25-Feb-2016 Instruction Type:Provider Instructions for Treatment [facility]; [facility] Work Phone: Instructions* Name Dates Details How to Access Health Informa tion Online using Patient Portal and [employer] Apps Indication:Nonsmoker Start:19-Dec-2022 Instruction Type:Patient Education Patient Instructions Indication:Nonsmoker Start:19-Dec-2022 Instruction Type:Provider Instructions for Treatment Patient Instructions Indication:BMI 30.0-30.9,adult Start:19-Oct-2022 Instruction Type:Provider Instructions for Treatment How to Access Health Informa tion Online using Patient Portal and [employer] Apps Indication:BMI 30.0-30.9,adult Start:19-Oct-2022 Instruction Type:Patient Education Patient Instructions Indication:Nonsmoker Start:29-Jun-2022 Instruction Type:Provider Instructions for Treatment How to Access Health Informa tion Online using Patient Portal and [employer] Apps Indication:Nonsmoker Start:29-Jun-2022 Instruction Type:Patient Education Patient Instructions Indication:BMI 25.0-25.9,adult Start:18-May-2022 Instruction Type:Provider Instructions for Treatment How to Access Health Informa tion Online using Patient Portal and [employer] Apps Indication:BMI 25.0-25.9,adult Start:18-May-2022 Instruction Type:Patient Education Patient Instructions Indication:Nonsmoker Start:20-Apr-2022 Instruction Type:Provider Instructions for Treatment How to Access Health Informa tion Online using Patient Portal and [employer] Apps Indication:Nonsmoker Start:20-Apr-2022 Instruction Type:Patient Education Patient Instructions Indication:BMI 26.0-26.9,adult Start:06-Apr-2022 Instruction Type:Provider Instructions for Treatment How to Access Health Informa tion Online using Patient Portal and [employer] Apps Indication:BMI 26.0-26.9,adult Start:06-Apr-2022 Instruction Type:Patient Education Patient Instructions Indication:Nonsmoker Start:23-Mar-2022 Instruction Type:Provider Instructions for Treatment How to Access Health Informa tion Online using Patient Portal and [employer] Apps Indication:Nonsmoker Start:23-Mar-2022 Instruction Type:Patient Education Patient Instructions Indication:BMI 29.0-29.9,adult Start:09-Mar-2022 Instruction Type:Provider Instructions for Treatment How to Access Health Informa tion Online using Patient Portal and [employer] Indication:BMI 29.0-29.9,adult Start:09-Mar-2022 Instruction Type:Patient Education Patient Instructions Indication:BMI 29.0-29.9,adult Start:23-Feb-2022 Instruction Type:Provider Instructions for Treatment How to Access Health Informa tion Online using Patient Portal and [employer] Indication:BMI 29.0-29.9,adult Start:23-Feb-2022 Instruction Type:Patient Education Patient Instructions Indication:Nonsmoker Start:09-Feb-2022 Instruction Type:Provider Instructions for Treatment How to Access Health Informa tion Online using Patient Portal and [employer] Apps Indication:Nonsmoker Start:09-Feb-2022 Instruction Type:Patient Education Patient Instructions Indication:Nonsmoker Start:06-Jan-2022 Instruction Type:Provider Instructions for Treatment How to Access Health Informa tion Online using Patient Portal and [employer] Apps Indication:Nonsmoker Start:06-Jan-2022 Instruction Type:Patient Education Patient Instructions Indication:BMI 27.0-27.9,adult Start:23-Apr-2021 Instruction Type:Provider Instructions for Treatment How to Access Health Informa tion Online using Patient Portal and [employer] Indication:BMI 27.0-27.9,adult Start:23-Apr-2021 Instruction Type:Patient Education Patient Instructions Indication:Nonsmoker Start:26-Mar-2021 Instruction Type:Provider Instructions for Treatment How to Access Health Informa tion Online using Patient Portal and [employer] Apps Indication:Nonsmoker Start:26-Mar-2021 Instruction Type:Patient Education How to access health informa tion online Indication:Nonsmoker Start:23-Aug-2019 Instruction Type:Patient Education How to access health informa tion online - Detail Indication:Nonsmoker Start:23-Aug-2019 Instruction Type:Patient Education Patient Instructions Indication:Nonsmoker Start:23-Aug-2019 Instruction Type:Provider Instructions for Treatment How to access health informa tion online Indication:Nonsmoker Start:26-Jan-2017 Instruction Type:Patient Education How to access health informa tion online - Detail Indication:Nonsmoker Start:26-Jan-2017 Instruction Type:Patient Education Patient Instructions Indication:Nonsmoker Start:26-Jan-2017 Instruction Type:Provider Instructions for Treatment How to access health informa tion online Indication:Right ear pain Start:11-Jul-2016 Instruction Type:Patient Education How to access health informa tion online - Detail Indication:Right ear pain Start:11-Jul-2016 Instruction Type:Patient Education Patient Instructions Indication:Right ear pain Start:11-Jul-2016 Instruction Type:Provider Instructions for Treatment How to access health informa tion online Indication:Dysuria Start:25-Feb-2016 Instruction Type:Patient Education How to access health informa tion online - Detail Indication:Dysuria Start:25-Feb-2016 Instruction Type:Patient Education Patient Instructions Indication:Dysuria Start:25-Feb-2016 Instruction Type:Provider Instructions for Treatment [facility]; [facility] Work Phone: Instructions* Name Dates Details How to Access Health Informa tion Online using Patient Portal and [employer]rd [employer] Apps Indication:Nonsmoker Start:19-Dec-2022 Instruction Type:Patient Education Patient Instructions Indication:Nonsmoker Start:19-Dec-2022 Instruction Type:Provider Instructions for Treatment Patient Instructions Indication:BMI 30.0-30.9,adult Start:19-Oct-2022 Instruction Type:Provider Instructions for Treatment How to Access Health Informa tion Online using Patient Portal and [email or web address] Indication:BMI 30.0-30.9,adult Start:19-Oct-2022 Instruction Type:Patient Education Patient Instructions Indication:Nonsmoker Start:29-Jun-2022 Instruction Type:Provider Instructions for Treatment How to Access Health Informa tion Online using Patient Portal and [employer] Apps Indication:Nonsmoker Start:29-Jun-2022 Instruction Type:Patient Education Patient Instructions Indication:BMI 25.0-25.9,adult Start:18-May-2022 Instruction Type:Provider Instructions for Treatment How to Access Health Informa tion Online using Patient Portal and [employer]rd [employer] Apps Indication:BMI 25.0-25.9,adult Start:18-May-2022 Instruction Type:Patient Education Patient Instructions Indication:Nonsmoker Start:20-Apr-2022 Instruction Type:Provider Instructions for Treatment How to Access Health Informa tion Online using Patient Portal and [employer]rd [employer] Apps Indication:Nonsmoker Start:20-Apr-2022 Instruction Type:Patient Education Patient Instructions Indication:BMI 26.0-26.9,adult Start:06-Apr-2022 Instruction Type:Provider Instructions for Treatment How to Access Health Informa tion Online using Patient Portal and [employer] Apps Indication:BMI 26.0-26.9,adult Start:06-Apr-2022 Instruction Type:Patient Education Patient Instructions Indication:Nonsmoker Start:23-Mar-2022 Instruction Type:Provider Instructions for Treatment How to Access Health Informa tion Online using Patient Portal and [employer] Apps Indication:Nonsmoker Start:23-Mar-2022 Instruction Type:Patient Education Patient Instructions Indication:BMI 29.0-29.9,adult Start:09-Mar-2022 Instruction Type:Provider Instructions for Treatment How to Access Health Informa tion Online using Patient Portal and [employer] Apps Indication:BMI 29.0-29.9,adult Start:09-Mar-2022 Instruction Type:Patient Education Patient Instructions Indication:BMI 29.0-29.9,adult Start:23-Feb-2022 Instruction Type:Provider Instructions for Treatment How to Access Health Informa tion Online using Patient Portal and [employer] Indication:BMI 29.0-29.9,adult Start:23-Feb-2022 Instruction Type:Patient Education Patient Instructions Indication:Nonsmoker Start:09-Feb-2022 Instruction Type:Provider Instructions for Treatment How to Access Health Informa tion Online using Patient Portal and [employer] Indication:Nonsmoker Start:09-Feb-2022 Instruction Type:Patient Education Patient Instructions Indication:Nonsmoker Start:06-Jan-2022 Instruction Type:Provider Instructions for Treatment How to Access Health Informa tion Online using Patient Portal and [employer] Indication:Nonsmoker Start:06-Jan-2022 Instruction Type:Patient Education Patient Instructions Indication:BMI 27.0-27.9,adult Start:23-Apr-2021 Instruction Type:Provider Instructions for Treatment How to Access Health Informa tion Online using Patient Portal and [employer] Indication:BMI 27.0-27.9,adult Start:23-Apr-2021 Instruction Type:Patient Education Patient Instructions Indication:Nonsmoker Start:26-Mar-2021 Instruction Type:Provider Instructions for Treatment How to Access Health Informa tion Online using Patient Portal and [employer] Indication:Nonsmoker Start:26-Mar-2021 Instruction Type:Patient Education How to access health informa tion online Indication:Nonsmoker Start:23-Aug-2019 Instruction Type:Patient Education How to access health informa tion online - Detail Indication:Nonsmoker Start:23-Aug-2019 Instruction Type:Patient Education Patient Instructions Indication:Nonsmoker Start:23-Aug-2019 Instruction Type:Provider Instructions for Treatment How to access health informa tion online Indication:Nonsmoker Start:26-Jan-2017 Instruction Type:Patient Education How to access health informa tion online - Detail Indication:Nonsmoker Start:26-Jan-2017 Instruction Type:Patient Education Patient Instructions Indication:Nonsmoker Start:26-Jan-2017 Instruction Type:Provider Instructions for Treatment How to access health informa tion online Indication:Right ear pain Start:11-Jul-2016 Instruction Type:Patient Education How to access health informa tion online - Detail Indication:Right ear pain Start:11-Jul-2016 Instruction Type:Patient Education Patient Instructions Indication:Right ear pain Start:11-Jul-2016 Instruction Type:Provider Instructions for Treatment How to access health informa tion online Indication:Dysuria Start:25-Feb-2016 Instruction Type:Patient Education How to access health informa tion online - Detail Indication:Dysuria Start:25-Feb-2016 Instruction Type:Patient Education Patient Instructions Indication:Dysuria Start:25-Feb-2016 Instruction Type:Provider Instructions for Treatment [facility]; [facility] Work Phone: Instructions* Name Dates Details Patient Instructions Indication:Nonsmoker Start:27-Jan-2023 Instruction Type:Provider Instructions for Treatment How to Access Health Informa tion Online using Patient Portal and [employer]rd [employer] Apps Indication:Nonsmoker Start:27-Jan-2023 Instruction Type:Patient Education How to Access Health Informa tion Online using Patient Portal and [email or web address] Indication:Nonsmoker Start:19-Dec-2022 Instruction Type:Patient Education Patient Instructions Indication:Nonsmoker Start:19-Dec-2022 Instruction Type:Provider Instructions for Treatment Patient Instructions Indication:BMI 30.0-30.9,adult Start:19-Oct-2022 Instruction Type:Provider Instructions for Treatment How to Access Health Informa tion Online using Patient Portal and [employer] Indication:BMI 30.0-30.9,adult Start:19-Oct-2022 Instruction Type:Patient Education Patient Instructions Indication:Nonsmoker Start:29-Jun-2022 Instruction Type:Provider Instructions for Treatment How to Access Health Informa tion Online using Patient Portal and [employer] Indication:Nonsmoker Start:29-Jun-2022 Instruction Type:Patient Education Patient Instructions Indication:BMI 25.0-25.9,adult Start:18-May-2022 Instruction Type:Provider Instructions for Treatment How to Access Health Informa tion Online using Patient Portal and [employer] Indication:BMI 25.0-25.9,adult Start:18-May-2022 Instruction Type:Patient Education Patient Instructions Indication:Nonsmoker Start:20-Apr-2022 Instruction Type:Provider Instructions for Treatment How to Access Health Informa tion Online using Patient Portal and [employer] Indication:Nonsmoker Start:20-Apr-2022 Instruction Type:Patient Education Patient Instructions Indication:BMI 26.0-26.9,adult Start:06-Apr-2022 Instruction Type:Provider Instructions for Treatment How to Access Health Informa tion Online using Patient Portal and [employer] Indication:BMI 26.0-26.9,adult Start:06-Apr-2022 Instruction Type:Patient Education Patient Instructions Indication:Nonsmoker Start:23-Mar-2022 Instruction Type:Provider Instructions for Treatment How to Access Health Informa tion Online using Patient Portal and [employer]rd [employer] Apps Indication:Nonsmoker Start:23-Mar-2022 Instruction Type:Patient Education Patient Instructions Indication:BMI 29.0-29.9,adult Start:09-Mar-2022 Instruction Type:Provider Instructions for Treatment How to Access Health Informa tion Online using Patient Portal and [employer]rd [employer] Apps Indication:BMI 29.0-29.9,adult Start:09-Mar-2022 Instruction Type:Patient Education Patient Instructions Indication:BMI 29.0-29.9,adult Start:23-Feb-2022 Instruction Type:Provider Instructions for Treatment How to Access Health Informa tion Online using Patient Portal and [employer]rd [employer] Apps Indication:BMI 29.0-29.9,adult Start:23-Feb-2022 Instruction Type:Patient Education Patient Instructions Indication:Nonsmoker Start:09-Feb-2022 Instruction Type:Provider Instructions for Treatment How to Access Health Informa tion Online using Patient Portal and [employer]rd [employer] Apps Indication:Nonsmoker Start:09-Feb-2022 Instruction Type:Patient Education Patient Instructions Indication:Nonsmoker Start:06-Jan-2022 Instruction Type:Provider Instructions for Treatment How to Access Health Informa tion Online using Patient Portal and [employer]rd [employer] Apps Indication:Nonsmoker Start:06-Jan-2022 Instruction Type:Patient Education Patient Instructions Indication:BMI 27.0-27.9,adult Start:23-Apr-2021 Instruction Type:Provider Instructions for Treatment How to Access Health Informa tion Online using Patient Portal and [employer]rd [employer] Apps Indication:BMI 27.0-27.9,adult Start:23-Apr-2021 Instruction Type:Patient Education Patient Instructions Indication:Nonsmoker Start:26-Mar-2021 Instruction Type:Provider Instructions for Treatment How to Access Health Informa tion Online using Patient Portal and [employer]rd [employer] Apps Indication:Nonsmoker Start:26-Mar-2021 Instruction Type:Patient Education How to access health informa tion online Indication:Nonsmoker Start:23-Aug-2019 Instruction Type:Patient Education How to access health informa tion online - Detail Indication:Nonsmoker Start:23-Aug-2019 Instruction Type:Patient Education Patient Instructions Indication:Nonsmoker Start:23-Aug-2019 Instruction Type:Provider Instructions for Treatment How to access health informa tion online Indication:Nonsmoker Start:26-Jan-2017 Instruction Type:Patient Education How to access health informa tion online - Detail Indication:Nonsmoker Start:26-Jan-2017 Instruction Type:Patient Education Patient Instructions Indication:Nonsmoker Start:26-Jan-2017 Instruction Type:Provider Instructions for Treatment How to access health informa tion online Indication:Right ear pain Start:11-Jul-2016 Instruction Type:Patient Education How to access health informa tion online - Detail Indication:Right ear pain Start:11-Jul-2016 Instruction Type:Patient Education Patient Instructions Indication:Right ear pain Start:11-Jul-2016 Instruction Type:Provider Instructions for Treatment How to access health informa tion online Indication:Dysuria Start:25-Feb-2016 Instruction Type:Patient Education How to access health informa tion online - Detail Indication:Dysuria Start:25-Feb-2016 Instruction Type:Patient Education Patient Instructions Indication:Dysuria Start:25-Feb-2016 Instruction Type:Provider Instructions for Treatment [facility]; [facility] Work Phone: Instructions* Name Dates Details Patient Instructions Indication:BMI 29.0-29.9,adult Start:24-Feb-2023 Instruction Type:Provider Instructions for Treatment How to Access Health Informa tion Online using Patient Portal and [employer]rd [employer] Apps Indication:BMI 29.0-29.9,adult Start:24-Feb-2023 Instruction Type:Patient Education Patient Instructions Indication:Nonsmoker Start:27-Jan-2023 Instruction Type:Provider Instructions for Treatment How to Access Health Informa tion Online using Patient Portal and [employer]rd [employer] Apps Indication:Nonsmoker Start:27-Jan-2023 Instruction Type:Patient Education How to Access Health Informa tion Online using Patient Portal and [employer]rd [employer] Apps Indication:Nonsmoker Start:19-Dec-2022 Instruction Type:Patient Education Patient Instructions Indication:Nonsmoker Start:19-Dec-2022 Instruction Type:Provider Instructions for Treatment Patient Instructions Indication:BMI 30.0-30.9,adult Start:19-Oct-2022 Instruction Type:Provider Instructions for Treatment How to Access Health Informa tion Online using Patient Portal and [employer]rd [employer] Apps Indication:BMI 30.0-30.9,adult Start:19-Oct-2022 Instruction Type:Patient Education Patient Instructions Indication:Nonsmoker Start:29-Jun-2022 Instruction Type:Provider Instructions for Treatment How to Access Health Informa tion Online using Patient Portal and [employer]rd [employer] Apps Indication:Nonsmoker Start:29-Jun-2022 Instruction Type:Patient Education Patient Instructions Indication:BMI 25.0-25.9,adult Start:18-May-2022 Instruction Type:Provider Instructions for Treatment How to Access Health Informa tion Online using Patient Portal and [employer]rd [employer] Apps Indication:BMI 25.0-25.9,adult Start:18-May-2022 Instruction Type:Patient Education Patient Instructions Indication:Nonsmoker Start:20-Apr-2022 Instruction Type:Provider Instructions for Treatment How to Access Health Informa tion Online using Patient Portal and [employer]rd [employer] Apps Indication:Nonsmoker Start:20-Apr-2022 Instruction Type:Patient Education Patient Instructions Indication:BMI 26.0-26.9,adult Start:06-Apr-2022 Instruction Type:Provider Instructions for Treatment How to Access Health Informa tion Online using Patient Portal and [employer]rd [employer] Apps Indication:BMI 26.0-26.9,adult Start:06-Apr-2022 Instruction Type:Patient Education Patient Instructions Indication:Nonsmoker Start:23-Mar-2022 Instruction Type:Provider Instructions for Treatment How to Access Health Informa tion Online using Patient Portal and [employer]rd [employer] Apps Indication:Nonsmoker Start:23-Mar-2022 Instruction Type:Patient Education Patient Instructions Indication:BMI 29.0-29.9,adult Start:09-Mar-2022 Instruction Type:Provider Instructions for Treatment How to Access Health Informa tion Online using Patient Portal and [employer]rd [employer] Apps Indication:BMI 29.0-29.9,adult Start:09-Mar-2022 Instruction Type:Patient Education Patient Instructions Indication:BMI 29.0-29.9,adult Start:23-Feb-2022 Instruction Type:Provider Instructions for Treatment How to Access Health Informa tion Online using Patient Portal and [employer] Apps Indication:BMI 29.0-29.9,adult Start:23-Feb-2022 Instruction Type:Patient Education Patient Instructions Indication:Nonsmoker Start:09-Feb-2022 Instruction Type:Provider Instructions for Treatment How to Access Health Informa tion Online using Patient Portal and [employer]rd [employer] Apps Indication:Nonsmoker Start:09-Feb-2022 Instruction Type:Patient Education Patient Instructions Indication:Nonsmoker Start:06-Jan-2022 Instruction Type:Provider Instructions for Treatment How to Access Health Informa tion Online using Patient Portal and [employer] Apps Indication:Nonsmoker Start:06-Jan-2022 Instruction Type:Patient Education Patient Instructions Indication:BMI 27.0-27.9,adult Start:23-Apr-2021 Instruction Type:Provider Instructions for Treatment How to Access Health Informa tion Online using Patient Portal and [employer]rd [employer] Apps Indication:BMI 27.0-27.9,adult Start:23-Apr-2021 Instruction Type:Patient Education Patient Instructions Indication:Nonsmoker Start:26-Mar-2021 Instruction Type:Provider Instructions for Treatment How to Access Health Informa tion Online using Patient Portal and [employer] Apps Indication:Nonsmoker Start:26-Mar-2021 Instruction Type:Patient Education How to access health informa tion online Indication:Nonsmoker Start:23-Aug-2019 Instruction Type:Patient Education How to access health informa tion online - Detail Indication:Nonsmoker Start:23-Aug-2019 Instruction Type:Patient Education Patient Instructions Indication:Nonsmoker Start:23-Aug-2019 Instruction Type:Provider Instructions for Treatment How to access health informa tion online Indication:Nonsmoker Start:26-Jan-2017 Instruction Type:Patient Education How to access health informa tion online - Detail Indication:Nonsmoker Start:26-Jan-2017 Instruction Type:Patient Education Patient Instructions Indication:Nonsmoker Start:26-Jan-2017 Instruction Type:Provider Instructions for Treatment How to access health informa tion online Indication:Right ear pain Start:11-Jul-2016 Instruction Type:Patient Education How to access health informa tion online - Detail Indication:Right ear pain Start:11-Jul-2016 Instruction Type:Patient Education Patient Instructions Indication:Right ear pain Start:11-Jul-2016 Instruction Type:Provider Instructions for Treatment How to access health informa tion online Indication:Dysuria Start:25-Feb-2016 Instruction Type:Patient Education How to access health informa tion online - Detail Indication:Dysuria Start:25-Feb-2016 Instruction Type:Patient Education Patient Instructions Indication:Dysuria Start:25-Feb-2016 Instruction Type:Provider Instructions for Treatment [facility]; [facility] Work Phone: Instructions* Name Dates Details Patient Instructions Indication:BMI 30.0-30.9,adult Start:24-Feb-2023 Instruction Type:Provider Instructions for Treatment How to Access Health Informa tion Online using Patient Portal and [employer]rd [employer] Apps Indication:BMI 30.0-30.9,adult Start:24-Feb-2023 Instruction Type:Patient Education Patient Instructions Indication:Nonsmoker Start:27-Jan-2023 Instruction Type:Provider Instructions for Treatment How to Access Health Informa tion Online using Patient Portal and [employer]rd [employer] Apps Indication:Nonsmoker Start:27-Jan-2023 Instruction Type:Patient Education How to Access Health Informa tion Online using Patient Portal and [employer]rd [employer] Apps Indication:Nonsmoker Start:19-Dec-2022 Instruction Type:Patient Education Patient Instructions Indication:Nonsmoker Start:19-Dec-2022 Instruction Type:Provider Instructions for Treatment Patient Instructions Indication:BMI 30.0-30.9,adult Start:19-Oct-2022 Instruction Type:Provider Instructions for Treatment How to Access Health Informa tion Online using Patient Portal and [employer]rd [employer] Apps Indication:BMI 30.0-30.9,adult Start:19-Oct-2022 Instruction Type:Patient Education Patient Instructions Indication:Nonsmoker Start:29-Jun-2022 Instruction Type:Provider Instructions for Treatment How to Access Health Informa tion Online using Patient Portal and [employer]rd [employer] Apps Indication:Nonsmoker Start:29-Jun-2022 Instruction Type:Patient Education Patient Instructions Indication:BMI 25.0-25.9,adult Start:18-May-2022 Instruction Type:Provider Instructions for Treatment How to Access Health Informa tion Online using Patient Portal and [employer]rd [employer] Apps Indication:BMI 25.0-25.9,adult Start:18-May-2022 Instruction Type:Patient Education Patient Instructions Indication:Nonsmoker Start:20-Apr-2022 Instruction Type:Provider Instructions for Treatment How to Access Health Informa tion Online using Patient Portal and [employer]rd [employer] Apps Indication:Nonsmoker Start:20-Apr-2022 Instruction Type:Patient Education Patient Instructions Indication:BMI 26.0-26.9,adult Start:06-Apr-2022 Instruction Type:Provider Instructions for Treatment How to Access Health Informa tion Online using Patient Portal and [employer]rd [employer] Apps Indication:BMI 26.0-26.9,adult Start:06-Apr-2022 Instruction Type:Patient Education Patient Instructions Indication:Nonsmoker Start:23-Mar-2022 Instruction Type:Provider Instructions for Treatment How to Access Health Informa tion Online using Patient Portal and [employer]rd [employer] Apps Indication:Nonsmoker Start:23-Mar-2022 Instruction Type:Patient Education Patient Instructions Indication:BMI 29.0-29.9,adult Start:09-Mar-2022 Instruction Type:Provider Instructions for Treatment How to Access Health Informa tion Online using Patient Portal and [employer]rd [employer] Apps Indication:BMI 29.0-29.9,adult Start:09-Mar-2022 Instruction Type:Patient Education Patient Instructions Indication:BMI 29.0-29.9,adult Start:23-Feb-2022 Instruction Type:Provider Instructions for Treatment How to Access Health Informa tion Online using Patient Portal and [employer]rd [employer] Apps Indication:BMI 29.0-29.9,adult Start:23-Feb-2022 Instruction Type:Patient Education Patient Instructions Indication:Nonsmoker Start:09-Feb-2022 Instruction Type:Provider Instructions for Treatment How to Access Health Informa tion Online using Patient Portal and [employer]rd [employer] Apps Indication:Nonsmoker Start:09-Feb-2022 Instruction Type:Patient Education Patient Instructions Indication:Nonsmoker Start:06-Jan-2022 Instruction Type:Provider Instructions for Treatment How to Access Health Informa tion Online using Patient Portal and [employer]rd [employer] Apps Indication:Nonsmoker Start:06-Jan-2022 Instruction Type:Patient Education Patient Instructions Indication:BMI 27.0-27.9,adult Start:23-Apr-2021 Instruction Type:Provider Instructions for Treatment How to Access Health Informa tion Online using Patient Portal and [employer]rd [employer] Apps Indication:BMI 27.0-27.9,adult Start:23-Apr-2021 Instruction Type:Patient Education Patient Instructions Indication:Nonsmoker Start:26-Mar-2021 Instruction Type:Provider Instructions for Treatment How to Access Health Informa tion Online using Patient Portal and [employer] Apps Indication:Nonsmoker Start:26-Mar-2021 Instruction Type:Patient Education How to access health informa tion online Indication:Nonsmoker Start:23-Aug-2019 Instruction Type:Patient Education How to access health informa tion online - Detail Indication:Nonsmoker Start:23-Aug-2019 Instruction Type:Patient Education Patient Instructions Indication:Nonsmoker Start:23-Aug-2019 Instruction Type:Provider Instructions for Treatment How to access health informa tion online Indication:Nonsmoker Start:26-Jan-2017 Instruction Type:Patient Education How to access health informa tion online - Detail Indication:Nonsmoker Start:26-Jan-2017 Instruction Type:Patient Education Patient Instructions Indication:Nonsmoker Start:26-Jan-2017 Instruction Type:Provider Instructions for Treatment How to access health informa tion online Indication:Right ear pain Start:11-Jul-2016 Instruction Type:Patient Education How to access health informa tion online - Detail Indication:Right ear pain Start:11-Jul-2016 Instruction Type:Patient Education Patient Instructions Indication:Right ear pain Start:11-Jul-2016 Instruction Type:Provider Instructions for Treatment How to access health informa tion online Indication:Dysuria Start:25-Feb-2016 Instruction Type:Patient Education How to access health informa tion online - Detail Indication:Dysuria Start:25-Feb-2016 Instruction Type:Patient Education Patient Instructions Indication:Dysuria Start:25-Feb-2016 Instruction Type:Provider Instructions for Treatment [facility]; [facility] Work Phone: Instructions* Name Dates Details Patient Instructions Indication:BMI 30.0-30.9,adult Start:24-Feb-2023 Instruction Type:Provider Instructions for Treatment How to Access Health Informa tion Online using Patient Portal and [employer]rd [employer] Apps Indication:BMI 30.0-30.9,adult Start:24-Feb-2023 Instruction Type:Patient Education Patient Instructions Indication:Nonsmoker Start:27-Jan-2023 Instruction Type:Provider Instructions for Treatment How to Access Health Informa tion Online using Patient Portal and [employer]rd [employer] Apps Indication:Nonsmoker Start:27-Jan-2023 Instruction Type:Patient Education How to Access Health Informa tion Online using Patient Portal and [employer]rd [employer] Apps Indication:Nonsmoker Start:19-Dec-2022 Instruction Type:Patient Education Patient Instructions Indication:Nonsmoker Start:19-Dec-2022 Instruction Type:Provider Instructions for Treatment Patient Instructions Indication:BMI 30.0-30.9,adult Start:19-Oct-2022 Instruction Type:Provider Instructions for Treatment How to Access Health Informa tion Online using Patient Portal and [employer]rd [employer] Apps Indication:BMI 30.0-30.9,adult Start:19-Oct-2022 Instruction Type:Patient Education Patient Instructions Indication:Nonsmoker Start:29-Jun-2022 Instruction Type:Provider Instructions for Treatment How to Access Health Informa tion Online using Patient Portal and [employer]rd [employer] Apps Indication:Nonsmoker Start:29-Jun-2022 Instruction Type:Patient Education Patient Instructions Indication:BMI 25.0-25.9,adult Start:18-May-2022 Instruction Type:Provider Instructions for Treatment How to Access Health Informa tion Online using Patient Portal and [employer]rd [employer] Apps Indication:BMI 25.0-25.9,adult Start:18-May-2022 Instruction Type:Patient Education Patient Instructions Indication:Nonsmoker Start:20-Apr-2022 Instruction Type:Provider Instructions for Treatment How to Access Health Informa tion Online using Patient Portal and [employer]rd [employer] Apps Indication:Nonsmoker Start:20-Apr-2022 Instruction Type:Patient Education Patient Instructions Indication:BMI 26.0-26.9,adult Start:06-Apr-2022 Instruction Type:Provider Instructions for Treatment How to Access Health Informa tion Online using Patient Portal and [employer]rd [employer] Apps Indication:BMI 26.0-26.9,adult Start:06-Apr-2022 Instruction Type:Patient Education Patient Instructions Indication:Nonsmoker Start:23-Mar-2022 Instruction Type:Provider Instructions for Treatment How to Access Health Informa tion Online using Patient Portal and [employer]rd [employer] Apps Indication:Nonsmoker Start:23-Mar-2022 Instruction Type:Patient Education Patient Instructions Indication:BMI 29.0-29.9,adult Start:09-Mar-2022 Instruction Type:Provider Instructions for Treatment How to Access Health Informa tion Online using Patient Portal and [employer]rd [employer] Apps Indication:BMI 29.0-29.9,adult Start:09-Mar-2022 Instruction Type:Patient Education Patient Instructions Indication:BMI 29.0-29.9,adult Start:23-Feb-2022 Instruction Type:Provider Instructions for Treatment How to Access Health Informa tion Online using Patient Portal and [employer]rd [employer] Apps Indication:BMI 29.0-29.9,adult Start:23-Feb-2022 Instruction Type:Patient Education Patient Instructions Indication:Nonsmoker Start:09-Feb-2022 Instruction Type:Provider Instructions for Treatment How to Access Health Informa tion Online using Patient Portal and [employer]rd [employer] Apps Indication:Nonsmoker Start:09-Feb-2022 Instruction Type:Patient Education Patient Instructions Indication:Nonsmoker Start:06-Jan-2022 Instruction Type:Provider Instructions for Treatment How to Access Health Informa tion Online using Patient Portal and [employer]rd [employer] Apps Indication:Nonsmoker Start:06-Jan-2022 Instruction Type:Patient Education Patient Instructions Indication:BMI 27.0-27.9,adult Start:23-Apr-2021 Instruction Type:Provider Instructions for Treatment How to Access Health Informa tion Online using Patient Portal and [employer]rd [employer] Apps Indication:BMI 27.0-27.9,adult Start:23-Apr-2021 Instruction Type:Patient Education Patient Instructions Indication:Nonsmoker Start:26-Mar-2021 Instruction Type:Provider Instructions for Treatment How to Access Health Informa tion Online using Patient Portal and [employer]rd [employer] Apps Indication:Nonsmoker Start:26-Mar-2021 Instruction Type:Patient Education How to access health informa tion online Indication:Nonsmoker Start:23-Aug-2019 Instruction Type:Patient Education How to access health informa tion online - Detail Indication:Nonsmoker Start:23-Aug-2019 Instruction Type:Patient Education Patient Instructions Indication:Nonsmoker Start:23-Aug-2019 Instruction Type:Provider Instructions for Treatment How to access health informa tion online Indication:Nonsmoker Start:26-Jan-2017 Instruction Type:Patient Education How to access health informa tion online - Detail Indication:Nonsmoker Start:26-Jan-2017 Instruction Type:Patient Education Patient Instructions Indication:Nonsmoker Start:26-Jan-2017 Instruction Type:Provider Instructions for Treatment How to access health informa tion online Indication:Right ear pain Start:11-Jul-2016 Instruction Type:Patient Education How to access health informa tion online - Detail Indication:Right ear pain Start:11-Jul-2016 Instruction Type:Patient Education Patient Instructions Indication:Right ear pain Start:11-Jul-2016 Instruction Type:Provider Instructions for Treatment How to access health informa tion online Indication:Dysuria Start:25-Feb-2016 Instruction Type:Patient Education How to access health informa tion online - Detail Indication:Dysuria Start:25-Feb-2016 Instruction Type:Patient Education Patient Instructions Indication:Dysuria Start:25-Feb-2016 Instruction Type:Provider Instructions for Treatment [facility]; [facility] Work Phone: Instructions* Name Dates Details Patient Instructions Indication:BMI 30.0-30.9,adult Start:24-Feb-2023 Instruction Type:Provider Instructions for Treatment How to Access Health Informa tion Online using Patient Portal and [employer]rd [employer] Apps Indication:BMI 30.0-30.9,adult Start:24-Feb-2023 Instruction Type:Patient Education Patient Instructions Indication:Nonsmoker Start:27-Jan-2023 Instruction Type:Provider Instructions for Treatment How to Access Health Informa tion Online using Patient Portal and [employer]rd [employer] Apps Indication:Nonsmoker Start:27-Jan-2023 Instruction Type:Patient Education How to Access Health Informa tion Online using Patient Portal and [employer]rd [employer] Apps Indication:Nonsmoker Start:19-Dec-2022 Instruction Type:Patient Education Patient Instructions Indication:Nonsmoker Start:19-Dec-2022 Instruction Type:Provider Instructions for Treatment Patient Instructions Indication:BMI 30.0-30.9,adult Start:19-Oct-2022 Instruction Type:Provider Instructions for Treatment How to Access Health Informa tion Online using Patient Portal and [employer]rd [employer] Apps Indication:BMI 30.0-30.9,adult Start:19-Oct-2022 Instruction Type:Patient Education Patient Instructions Indication:Nonsmoker Start:29-Jun-2022 Instruction Type:Provider Instructions for Treatment How to Access Health Informa tion Online using Patient Portal and [employer]rd [employer] Apps Indication:Nonsmoker Start:29-Jun-2022 Instruction Type:Patient Education Patient Instructions Indication:BMI 25.0-25.9,adult Start:18-May-2022 Instruction Type:Provider Instructions for Treatment How to Access Health Informa tion Online using Patient Portal and [employer]rd [employer] Apps Indication:BMI 25.0-25.9,adult Start:18-May-2022 Instruction Type:Patient Education Patient Instructions Indication:Nonsmoker Start:20-Apr-2022 Instruction Type:Provider Instructions for Treatment How to Access Health Informa tion Online using Patient Portal and [employer] Apps Indication:Nonsmoker Start:20-Apr-2022 Instruction Type:Patient Education Patient Instructions Indication:BMI 26.0-26.9,adult Start:06-Apr-2022 Instruction Type:Provider Instructions for Treatment How to Access Health Informa tion Online using Patient Portal and [employer] Apps Indication:BMI 26.0-26.9,adult Start:06-Apr-2022 Instruction Type:Patient Education Patient Instructions Indication:Nonsmoker Start:23-Mar-2022 Instruction Type:Provider Instructions for Treatment How to Access Health Informa tion Online using Patient Portal and [employer] Apps Indication:Nonsmoker Start:23-Mar-2022 Instruction Type:Patient Education Patient Instructions Indication:BMI 29.0-29.9,adult Start:09-Mar-2022 Instruction Type:Provider Instructions for Treatment How to Access Health Informa tion Online using Patient Portal and [employer] Apps Indication:BMI 29.0-29.9,adult Start:09-Mar-2022 Instruction Type:Patient Education Patient Instructions Indication:BMI 29.0-29.9,adult Start:23-Feb-2022 Instruction Type:Provider Instructions for Treatment How to Access Health Informa tion Online using Patient Portal and [employer] Indication:BMI 29.0-29.9,adult Start:23-Feb-2022 Instruction Type:Patient Education Patient Instructions Indication:Nonsmoker Start:09-Feb-2022 Instruction Type:Provider Instructions for Treatment How to Access Health Informa tion Online using Patient Portal and 3rd [employer] Apps Indication:Nonsmoker Start:09-Feb-2022 Instruction Type:Patient Education Patient Instructions Indication:Nonsmoker Start:06-Jan-2022 Instruction Type:Provider Instructions for Treatment How to Access Health Informa tion Online using Patient Portal and 3rd [employer] Apps Indication:Nonsmoker Start:06-Jan-2022 Instruction Type:Patient Education Patient Instructions Indication:BMI 27.0-27.9,adult Start:23-Apr-2021 Instruction Type:Provider Instructions for Treatment How to Access Health Informa tion Online using Patient Portal and 3rd [employer] Apps Indication:BMI 27.0-27.9,adult Start:23-Apr-2021 Instruction Type:Patient Education Patient Instructions Indication:Nonsmoker Start:26-Mar-2021 Instruction Type:Provider Instructions for Treatment How to Access Health Informa tion Online using Patient Portal and 3rd [employer]arian Apps Indication:Nonsmoker Start:26-Mar-2021 Instruction Type:Patient Education How to access health informa tion online Indication:Nonsmoker Start:23-Aug-2019 Instruction Type:Patient Education How to access health informa tion online - Detail Indication:Nonsmoker Start:23-Aug-2019 Instruction Type:Patient Education Patient Instructions Indication:Nonsmoker Start:23-Aug-2019 Instruction Type:Provider Instructions for Treatment How to access health informa tion online Indication:Nonsmoker Start:26-Jan-2017 Instruction Type:Patient Education How to access health informa tion online - Detail Indication:Nonsmoker Start:26-Jan-2017 Instruction Type:Patient Education Patient Instructions Indication:Nonsmoker Start:26-Jan-2017 Instruction Type:Provider Instructions for Treatment How to access health informa tion online Indication:Right ear pain Start:11-Jul-2016 Instruction Type:Patient Education How to access health informa tion online - Detail Indication:Right ear pain Start:11-Jul-2016 Instruction Type:Patient Education Patient Instructions Indication:Right ear pain Start:11-Jul-2016 Instruction Type:Provider Instructions for Treatment How to access health informa tion online Indication:Dysuria Start:25-Feb-2016 Instruction Type:Patient Education How to access health informa tion online - Detail Indication:Dysuria Start:25-Feb-2016 Instruction Type:Patient Education Patient Instructions Indication:Dysuria Start:25-Feb-2016 Instruction Type:Provider Instructions for Treatment [facility] Work Phone: reason for referral (narrative)No [facility]: Family History No Family History Records FoundUnknown Family Member Name Dates Details Father Comments:Anxiety, depression , HBP, Kidney dx, decreased kidney dx, transplant 2004 Status:Active Mother Comments:High cholesterol, A nxiety, depression Status:Active Unknown Family Member Name Dates Details Father Comments:Anxiety, depression , HBP, Kidney dx, decreased kidney dx, transplant 2003 Status:Active Mother Comments:High cholesterol, A nxiety, depression Status:Active Unknown Family Member Name Dates Details Father Comments:Anxiety, depression , HBP, Kidney dx, decreased kidney dx, transplant 2003 Status:Active Mother Comments:High cholesterol, A nxiety, depression Status:Active Unknown Family Member Name Dates Details Father Comments:Anxiety, depression , HBP, Kidney dx, decreased kidney dx, transplant 2003 Status:Active Mother Comments:High cholesterol, A nxiety, depression Status:Active Unknown Family Member Name Dates Details Father Comments:Anxiety, depression , HBP, Kidney dx, decreased kidney dx, transplant 2003 Status:Active Mother Comments:High cholesterol, A nxiety, depression Status:Active Unknown Family Member Name Dates Details Father Comments:Anxiety, depression , HBP, Kidney dx, decreased kidney dx, transplant 2003 Status:Active Mother Comments:High cholesterol, A nxiety, depression Status:Active Unknown Family Member Name Dates Details Father Comments:Anxiety, depression , HBP, Kidney dx, decreased kidney dx, transplant 2003 Status:Active Mother Comments:High cholesterol, A nxiety, depression Status:Active Unknown Family Member Name Dates Details Father Comments:Anxiety, depression , HBP, Kidney dx, decreased kidney dx, transplant 2003 Status:Active Mother Comments:High cholesterol, A nxiety, depression Status:Active Unknown Family Member Name Dates Details Father Comments:Anxiety, depression , HBP, Kidney dx, decreased kidney dx, transplant 2003 Status:Active Mother Comments:High cholesterol, A nxiety, depression Status:Active Unknown Family Member Name Dates Details Father Comments:Anxiety, depression , HBP, Kidney dx, decreased kidney dx, transplant 2003 Status:Active Mother Comments:High cholesterol, A nxiety, depression Status:Active Unknown Family Member Name Dates Details Father Comments:Anxiety, depression , HBP, Kidney dx, decreased kidney dx, transplant 2003 Status:Active Mother Comments:High cholesterol, A nxiety, depression Status:Active Unknown Family Member Name Dates Details Father Comments:Anxiety, depression , HBP, Kidney dx, decreased kidney dx, transplant 2003 Status:Active Mother Comments:High cholesterol, A nxiety, depression Status:Active Unknown Family Member Name Dates Details Father Comments:Anxiety, depression , HBP, Kidney dx, decreased kidney dx, transplant 2003 Status:Active Mother Comments:High cholesterol, A nxiety, depression Status:Active Unknown Family Member Name Dates Details Father Comments:Anxiety, depression , HBP, Kidney dx, decreased kidney dx, transplant 2003 Status:Active Mother Comments:High cholesterol, A nxiety, depression Status:Active Unknown Family Member Name Dates Details Father Comments:Anxiety, depression , HBP, Kidney dx, decreased kidney dx, transplant 2003 Status:Active Mother Comments:High cholesterol, A nxiety, depression Status:Active Unknown Family Member Name Dates Details Father Comments:Anxiety, depression , HBP, Kidney dx, decreased kidney dx, transplant 2003 Status:Active Mother Comments:High cholesterol, A nxiety, depression Status:Active Unknown Family Member Name Dates Details Father Comments:Anxiety, depression , HBP, Kidney dx, decreased kidney dx, transplant 2003 Status:Active Mother Comments:High cholesterol, A nxiety, depression Status:Active Unknown Family Member Name Dates Details Father Comments:Anxiety, depression , HBP, Kidney dx, decreased kidney dx, transplant 2003 Status:Active Mother Comments:High cholesterol, A nxiety, depression Status:Active Unknown Family Member Name Dates Details Father Comments:Anxiety, depression , HBP, Kidney dx, decreased kidney dx, transplant 2003 Status:Active Mother Comments:High cholesterol, A nxiety, depression Status:Active Unknown Family Member Name Dates Details Father Comments:Anxiety, depression , HBP, Kidney dx, decreased kidney dx, transplant 2003 Status:Active Mother Comments:High cholesterol, A nxiety, depression Status:Active Unknown Family Member Name Dates Details Father Comments:Anxiety, depression , HBP, Kidney dx, decreased kidney dx, transplant 2003 Status:Active Mother Comments:High cholesterol, A nxiety, depression Status:Active Unknown Family Member Name Dates Details Father Comments:Anxiety, depression , HBP, Kidney dx, decreased kidney dx, transplant 2003 Status:Active Mother Comments:High cholesterol, A nxiety, depression Status:Active Unknown Family Member Name Dates Details Father Comments:Anxiety, depression , HBP, Kidney dx, decreased kidney dx, transplant 2003 Status:Active Mother Comments:High cholesterol, A nxiety, depression Status:Active Unknown Family Member Name Dates Details Father Comments:Anxiety, depression , HBP, Kidney dx, decreased kidney dx, transplant 2003 Status:Active Mother Comments:High cholesterol, A nxiety, depression Status:Active Unknown Family Member Name Dates Details Father Comments:Anxiety, depression , HBP, Kidney dx, decreased kidney dx, transplant 2003 Status:Active Mother Comments:High cholesterol, A nxiety, depression Status:Active Instructions Name Dates Details How to access health informa tion online Indication:Nonsmoker Start:23-Aug-2019 Instruction Type:Patient Education How to access health informa tion online - Detail Indication:Nonsmoker Start:23-Aug-2019 Instruction Type:Patient Education Patient Instructions Indication:Nonsmoker Start:23-Aug-2019 Instruction Type:Provider Instructions for Treatment How to access health informa tion online Indication:Nonsmoker Start:26-Jan-2017 Instruction Type:Patient Education How to access health informa tion online - Detail Indication:Nonsmoker Start:26-Jan-2017 Instruction Type:Patient Education Patient Instructions Indication:Nonsmoker Start:26-Jan-2017 Instruction Type:Provider Instructions for Treatment How to access health informa tion online Indication:Right ear pain Start:11-Jul-2016 Instruction Type:Patient Education How to access health informa tion online - Detail Indication:Right ear pain Start:11-Jul-2016 Instruction Type:Patient Education Patient Instructions Indication:Right ear pain Start:11-Jul-2016 Instruction Type:Provider Instructions for Treatment How to access health informa tion online Indication:Dysuria Start:25-Feb-2016 Instruction Type:Patient Education How to access health informa tion online - Detail Indication:Dysuria Start:25-Feb-2016 Instruction Type:Patient Education Patient Instructions Indication:Dysuria Start:25-Feb-2016 Instruction Type:Provider Instructions for Treatment Name Dates Details How to access health informa tion online Indication:Nonsmoker Start:23-Aug-2019 Instruction Type:Patient Education How to access health informa tion online - Detail Indication:Nonsmoker Start:23-Aug-2019 Instruction Type:Patient Education Patient Instructions Indication:Nonsmoker Start:23-Aug-2019 Instruction Type:Provider Instructions for Treatment How to access health informa tion online Indication:Nonsmoker Start:26-Jan-2017 Instruction Type:Patient Education How to access health informa tion online - Detail Indication:Nonsmoker Start:26-Jan-2017 Instruction Type:Patient Education Patient Instructions Indication:Nonsmoker Start:26-Jan-2017 Instruction Type:Provider Instructions for Treatment How to access health informa tion online Indication:Right ear pain Start:11-Jul-2016 Instruction Type:Patient Education How to access health informa tion online - Detail Indication:Right ear pain Start:11-Jul-2016 Instruction Type:Patient Education Patient Instructions Indication:Right ear pain Start:11-Jul-2016 Instruction Type:Provider Instructions for Treatment How to access health informa tion online Indication:Dysuria Start:25-Feb-2016 Instruction Type:Patient Education How to access health informa tion online - Detail Indication:Dysuria Start:25-Feb-2016 Instruction Type:Patient Education Patient Instructions Indication:Dysuria Start:25-Feb-2016 Instruction Type:Provider Instructions for Treatment Summary Purpose Advance Directives No Advanced Directives Records Found Advance Directive Response Recorded Date/ Time Advance Directives No March 23, 2015 3:59pm Living Will No July 19, 2 023 9:32am Power of Document Scanner No July 19, 2022 9:32am Advance Directive Response Recorded Date/ Time Advance Directives No March 23, 2015 4:59pm Chief Complaint Chief Complaint Description Start Date left finger pain Preliminary chief co mplaint data, not yet signed by the author as of Chief Complaint and Reason for Visit Chief Complaint HTN Chief Complaint Admit Date SCREENING December 25, 2024 8:15 am Other abnormal and inconclusive findings on diagno December 26, 2024 8:15am Additional Source Comments INFORMATION SOURCE (unrecogn ized section and content) DATE CREATED AUTHOR 03/05/2020 [facility] DATE CREATED AUTHOR AUTHOR'S ORGANIZ ATION 07/23/2020 [facility] DATE CREATED AUTHOR AUTHOR'S ORGANIZ ATION [facility] CREATED AUTHOR AUTHOR'S ORGANIZ ATION 01/01/2025 [facility] Reason for Visit (unrecogniz ed section and content) Reason For Visit Description New - 1st visit with practice Preliminary reason f or visit data, not yet signed by the author as of left finger pain Care Teams (unrecognized sec tion and content) Team Status: Active Member Role Status Dates Dr. Shelby Saenz , DO Family Provider Active Dr. Shelby Saenz , DO Primary Care Provider Active Team Status: Inactive Member Role Status Dates Dr. Shelby Saenz , DO Primary Care Provider Active Geoff Gaspar MD Emergency Provider Active Team Status: Active Member Role/Relationship Status Dates Jany New , TRANSMISSION INSPECTOR-C Primary Care Provider Active Team Status: Inactive Member Role/Relationship Status Dates Jany Wolff , TRANSMISSION INSPECTOR-C Primary Care Provider Active Start: December 11, 2024 End: December 11, 2024 Jany Wolff , TRANSMISSION INSPECTOR-C Attending Provider Active St art: December 11, 2024 End: December 11, 2024 Team Status: Inactive Member Role/Relationship Status Dates Jany New , TRANSMISSION INSPECTOR-C Primary Care Provider Active Start: December 25, 2024 End: December 25, 2024 Jany New , TRANSMISSION INSPECTOR-C Attending Provider Active St art: December 25, 2024 End: December 25, 2024 Jany New , TRANSMISSION INSPECTOR-C Referring Provider Active St art: December 25, 2024 End: December 25, 2024 Team Status: Active Member Role/Relationship Status Dates Jany New , TRANSMISSION INSPECTOR-C Primary Care Provider Active Start: December 26, 2024 Jany New , TRANSMISSION INSPECTOR-C Attending Provider Active St art: December 26, 2024 Jany New , TRANSMISSION INSPECTOR-C Referring Provider Active St art: December 26, 2024 Team Status: Inactive Member Role/Relationship Status Dates Jany New , TRANSMISSION INSPECTOR-C Primary Care Provider Active Start: December 26, 2024 End: December 26, 2024 Jany New , TRANSMISSION INSPECTOR-C Attending Provider Active St art: December 26, 2024 End: December 26, 2024 Jany New , TRANSMISSION INSPECTOR-C Referring Provider Active St art: December 26, 2024 End: December 26, 2024 Goals (unrecognized section and content) Goals may be documented in a n alternate sectionGoals may be documented in an alternate sectionGoals may be documented in an alternate sectionGoals may be documented in an alternate section FOR RECORDS PERTAINING TO PATIENTS WHO ARE OR HAVE BEEN ENROLLED IN A CHEMICAL DEPENDENCY/SUBSTANCEABUSE PROGRAM, SOME INFORMATION MAY BE OMITTED. This clinical summary was aggregated from multiple sources. Caution should be exercised in using it in the provision of clinical care. This summary normalizes information from multiple sources, and as a consequence, information in this document may materially change the coding, format and clinical context of patient data. In addition, data may be omitted in some cases. CLINICAL DECISIONS SHOULD BE BASED ON THE PRIMARY CLINICAL RECORDS. [facility] [employer] [facility]. provides no warranty or guarantee of the accuracy or completeness of information in this document.
--- NOTE | 2025-01-03 06:46 | HP.PCM_ITS ---
HPI - General HPI Narrative SONY ALVARENGA, is a 54 F who presents for screening colonoscopy. She has never had a colonoscopy in the past. She denies abdominal pain or blood in the stool. She has an uncle with polyps but no other family history of colon cancer. [facility] Medical History (Updated 12/31/24 @ 11:06 by Trudy Brooke) Wears glasses Post-menopausal Migraine headache Non-smoker Screening for colon cancer Home Medications ?Medication ?Instructions ?Recorded ?Last Taken ?Type NK 12/31/24 Unknown History Allergy/AdvReac Type Severity Reaction Status Date / Time Penicillins Allergy Rash Verified 12/31/24 11:00 prochlorperazine edisylate Allergy Anaphylaxis Verified 12/31/24 11:00 (From Compazine) prochlorperazine maleate Allergy Anaphylaxis Verified 12/31/24 11:00 (From Compazine) Surgical History (Updated 12/31/24 @ 11:06 by Trudy Brooke) Hx of surgical procedure Hx of surgical procedure History of cholecystectomy History of D&C History of tonsillectomy Social History Smoking Status: Never smoker alcohol intake: never Past Medical/Surgical History Planned Operation Planned Operative Procedure(s): COLONOSCOPY-OA S.O.S: No Previous Hospitalizations/Surgeries HX Hospitalizations: No HX of Surgeries: 3 D/C - [facility] C SECTION CHILD - [facility] C SECTION CHILD - [place] TONSILLECTOMY - 1988 [place] - [facility] 2004 TUBAL LIGATION 2009 - [facility] VAGINAL ABLASION Any Problems With Anesthesia: No You/Your Family Experience Fever (Hyperthermia) With Anes: No Cholinesterase deficiency: No Cardiovascular Hx Chest Pain within Last 2 months: No Hx of Irregular Heartbeat and/or Afib: No Hx Heart Attack: No Hx Congestive Heart Failure: No Hx Rheumatic Fever: No Hx Hypertension: No Hx Internal Defibrillator: No Hx Pacemaker: No Hx Cardiac Catheterization: No Hx Cardiac Surgery/Stents/Etc.: No Hx Stress Test: No Hx Pain in Legs when Walking/Leg Cramps: No Respiratory Chronic Cough: No HX of Shortness of Breath: No Hoarseness: No Hx Chronic Obstructive Pulmonary Disease (COPD): No Hx Asthma: No Hx Emphysema: No Hx Sleep Apnea: No CPAP: No BIPAP: No Hx Respiratory Tract Infection/Cold (presently): No Do You Snore Loudly (louder than talking or can be heard): No Do You Often Feel Tired/ Fatigued/ Sleepy Dring Daytime?: No Has Anyone Observed You Stop Breathing During Sleep?: No Result (for STOP score): Negative Hx Smoking: No Smoking Status: Never smoker Gastrointestinal Hx Gastrointestinal Disorders: No Hx Gastrointestinal Bleed: No Hx Ulcer: No Hx Hiatal Hernia: No Difficulty Chewing/Swallowing: No Special diet followed at home: No Hx Unplanned Weight Loss of 20#: No HX Unplanned Weight Gain of 20#: No Neurological Hx Seizures: No HX Syncope/Blackout Spells/Unconsciousness: No Hx Transient Ischemic Attacks (TIA): No Hx Multiple Sclerosis: No Hx Parkinson's Disease: No Hx Head/Neck Injury: No Hx Headaches: No Hx Back Injury/Pain: No Recent Onset of Speech Difficulty: No Restless Legs: No Does patient have nerve stimulator: No Blood Disorder Hx Leukemia: No Bleeding Tendencies: No Hx Deep Vein Thrombosis: No Hx High Cholesterol: No Blood Transmitted Disease: No Hx Hepatitis: No Hx Cirrhosis: No Hx Anemia: No Hx Blood Disorders: No Reproduction : No Is Patient Lactating: No Hx Hysterectomy: No Hx Tubal Ligation: Yes Are You Post Menopause: No Genitourinary Hx Renal Disease: No Musculoskeletal Hx Arthritis: No Hx Rheumatoid Arthritis: No Hx Gout: No Recent Onset of an Orthopedic Problem: No Endocrine Hx Diabetes: No Thyroid Disease: No Hx Steroid Therapy: No Psycho/Social Hx Substance Use: No Hx Alcohol Use: No Hx Anxiety: Yes (NOT CURRENTLY) Hx Depression: No Mental Illness: No Hx Dementia: No Miscellaneous Hx Cancer: No Recent Exposure to Contagious Disease: No Hx of C-Diff: No Any Loose Teeth: No Allergies Penicillins Allergy (Verified 12/31/24 11:00) Rash prochlorperazine edisylate (From Compazine) Allergy (Verified 12/31/24 11:00) Anaphylaxis prochlorperazine maleate (From Compazine) Allergy (Verified 12/31/24 11:00) Anaphylaxis Discharge Is Pt Admitted From a Longterm, or a Prison: No After D/C, Where Do you Plan to Go: Return Home Physical Exam Const alert and oriented x3 HEENT normocephalic Eyes PERRL Resp normal respiratory effort and normal air movement Cardio regular rate and regular rhythm GI soft to palpation, non-tender and non-distended Extremity normal to inspection Assessment & Plan Assessment/Plan (1) Screening for colon cancer: PLAN: I explained endoscopy in detail to the patient. I explained the risks including but not limited to stroke or heart attack with anesthesia, perforation of the GI tract, bleeding, infection. I explained that any of these could necessitate further emergency surgery. The patient understands and all questions were answered sufficiently. The patient wishes to proceed with procedure. Carmine Mac MD Pager: [facility] [address] [place] [address], [address] [place] [address] Office: Surgery Risks - Colonoscopy Risks Include but are not Limited To: Risks include but are not limited to: Bleeding, perforation requiring further surgery, inability to complete colonoscopy requiring barium enema.
[2025-01-03] MEDS: Lactated Ringers 1,000 ML 15 ML IV (07:03)
--- NOTE | 2025-01-03 07:16 | PCM.PRE.AN2 ---
ASA Classification* ASA Classification ASA Classification: 1 Assessment & Plan Anesthesia* Anesthesia Assessment Anesthesia Assessment: Discussed sedation and/or anesthesia options, risks, benefits, and alternatives with patient/parents/legal guardian/POA. Questions invited. The patient/parents/legal guardian/POA seems to understand and agrees to proceed with anesthesia plan. Reviewed the physical assessment, medical history, allergy history and patient home medications list prior to surgery/procedure/anesthetic and documented any changes. Performed airway and anesthesia risk assessments. Anesthesia Type Anesthesia Type: MAC History Source History Obtained from:: Patient and Chart Anesthesia Focused Assessment* Temperature: 97.8 F Pulse Rate: 60 Blood Pressure: 106/56 Respiratory Rate: 16 Pulse Ox: 100 Oxygen Delivery Method: Room Air Airway Assessment Mouth opens: >3 cm Mallampati Score: IV Teeth Condition: Caps/Crowns (Patient has a crown on #10. It is tight.) Neck Range of motion (ROM): Full ROM Labs Anesthesia Preop lab: CBC WBC 7.3 K/mm3 (4.4-11.0) 07/19/22 09:55 07/19/22 RBC 4.55 M/mm3 (4.2-5.4) 07/19/22 09:55 07/19/22 Hgb 14.3 g/dL (12.0-15.0) 07/19/22 09:55 07/19/22 Hct 43.6 % (37-47) 07/19/22 09:55 07/19/22 Plt Count 211 K/mm3 (150-450) 07/19/22 09:55 07/19/22 CHEMISTRY Potassium 4.2 mmol/L (3.5-5.1) 07/19/22 09:55 07/19/22 Sodium 140 mmol/L (136-145) 07/19/22 09:55 07/19/22 BUN 15 mg/dL (7-18) 07/19/22 09:55 07/19/22 Creatinine 0.86 mg/dL (0.55-1.02) 07/19/22 09:55 07/19/22 Glucose 105 mg/dL (74-106) 07/19/22 09:55 07/19/22 POC Glucose 96 mg/dL (74-106) 07/19/22 09:53 07/19/22 TSH 3.05 uIU/mL (0.358-3.74) 03/04/23 08:34 03/04/23 COAG PT 13.9 SECONDS (11.7-14.9) 02/07/15 10:09 02/07/15 Pre-Assessment Diagnosis/Proposed Procedure Planned Operative Procedure(s): COLONOSCOPY-OA Anesthesia History 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 When Was Last Pacemaker Check QUESTION #4 FULL TEXT: You/Your Family Experience fever (hyperthermia) with Anesthesia Last Oral Intake Last Oral intake: Last Oral Intake NPO since 21:30 01/03/25 06:54 Meds taken in AM with sips of water? Meds patient instructed to take am of surgery PONV PONV - refrigeration brazer/solderer: PONV - refrigeration brazer/solderer Female Yes 12/31/24 11:06 HX of Motion Sickness No 12/31/24 11:06 HX of N/V After Surgery No 12/31/24 11:06 Non-Smoker Yes 12/31/24 11:06 Duration of Surgery greater No 12/31/24 11:06 than 60 minutes Number of Risk Factors 2 12/31/24 11:06 PONV Score Moderate Risk 12/31/24 11:06 Height & Weight Height & Weight: Anesthesia: Height & Weight Height 5 ft 4 in 01/03/25 06:54 Weight: 69.4 kg 01/03/25 06:54 Body Mass Index (BMI) 26.2 01/03/25 06:54 Respiratory Assessment Respiratory Assessment - refrigeration brazer/solderer: Respiratory Tract Infection Hx - refrigeration brazer/solderer Hx Respiratory Tract Infection No 01/03/25 06:46 STOP Sleep Apnea STOP Sleep Apnea - refrigeration brazer/solderer: STOP Sleep Apnea - refrigeration brazer/solderer Hx Hypertension No 01/03/25 06:46 Hx Sleep Apnea No 01/03/25 06:46 CPAP No 01/03/25 06:46 BIPAP No 01/03/25 06:46 Do you snore loudly (louder No 01/03/25 06:46 than talking or can be heard Do you often feel tired/ No 01/03/25 06:46 fatigued/ sleepy during daytime? Has anyone observed you stop No 01/03/25 06:46 breathing during sleep? STOP Results Negative 01/03/25 06:46 QUESTION #5 FULL TEXT : Do you snore loudly (louder than talking or can be heard through closed doors)? 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 Specify any problems Hx of Preganancy in last 3 N/A 12/31/24 11:06 Months Nurse Filling Out Transfusion VCHRISTIN 12/31/24 11:06 & Questions: Date: 12/31/24 12/31/24 11:06 Time: 11:07 12/31/24 11:06 Patient unable to answer at this time (ie. confused, unrespo /Reproduction History /Reproductive History - refrigeration brazer/solderer: /Reproductive Hx- refrigeration brazer/solderer Hx Now No 01/03/25 06:46 Gestational Age (in weeks): EDC: Hx Hx Para Hx Section SAB No 12/31/24 11:06 Active Medications Active Medications: Current Medications Generic Name Dose Route Start Last Admin Trade Name Freq PRN Reason Stop Dose Admin Lactated Ringer's 1,000 mls @ 15 mls/hr 01/03/25 06:45 01/03/25 07:03 IV 15 mls/hr .Q48H NORA Administration PFSH Medical History Wears glasses Post-menopausal Migraine headache Non-smoker Screening for colon cancer Home Medications ?Medication ?Instructions ?Recorded ?Last Taken ?Type NK 12/31/24 Unknown History Allergy/AdvReac Type Severity Reaction Status Date / Time Penicillins Allergy Rash Verified 01/03/25 06:54 prochlorperazine edisylate Allergy Anaphylaxis Verified 01/03/25 06:54 (From Compazine) prochlorperazine maleate Allergy Anaphylaxis Verified 01/03/25 06:54 (From Compazine) Surgical History Hx of surgical procedure Hx of surgical procedure History of cholecystectomy History of D&C History of tonsillectomy Social History Smoking Status: Never smoker alcohol intake: never Review of Systems (Anesthesia) ROS Narrative System reviewed and no additional complaints, except as documented.
--- NOTE | 2025-01-03 08:09 | PCM.POST.ANE ---
Anesthesia: Postop Eval I Current Vital Signs Temperature: 97.7 F Pulse Rate: 58 Blood Pressure: 89/50 Respiratory Rate: 20 Pulse Ox: 98 Assessment Airway patent: Yes Spontaneous unlabored respirations: Yes nausea: No Vomiting: No Anesthesia Complication: No Fluid Hydration Crystalloid volume administer (ml): 200 Total IV fluid infused: 200 Progress Note Anesthesia document: Postop Eval 1 completed: Yes
--- NOTE | 2025-01-03 08:16 | OP.COLON_ITS ---
Patient Name: Olesya Ibarra Procedure Date: 01/03/2025 7:06 AM Date of : 1970 Age: 54 Procedure: Colonoscopy Indications: Screening for colorectal malignant neoplasm Providers: Carmine Mac MD Medicines: Propofol per Anesthesia Patient Profile: This is a 54 year old female. Refer to note in patient chart for documentation of history and physical. Last Colonoscopy: none. The patient's first colonoscopy is today. Complications: No immediate complications. Procedure: Pre-Anesthesia Assessment: - Prior to the procedure, a History and Physical was performed, and patient medications and allergies were reviewed. The patient's tolerance of previous anesthesia was also reviewed. The risks and benefits of the procedure and the sedation options and risks were discussed with the patient. All questions were answered, and informed consent was obtained. Prior Anticoagulants: The patient has taken no anticoagulant or antiplatelet agents. After reviewing the risks and benefits, the patient was deemed in satisfactory condition to undergo the procedure. After I obtained informed consent, the scope was passed under direct vision. Throughout the procedure, the patient's blood pressure, pulse, and oxygen saturations were monitored continuously. The Colonoscope was introduced through the anus and advanced to the cecum, identified by appendiceal orifice and ileocecal valve. The colonoscopy was performed without difficulty. The patient tolerated the procedure well. The quality of the bowel preparation was good. The ileocecal valve, appendiceal orifice, and rectum were photographed. Scope In: 7:47:02 AM Scope Withdrawal Time 0 hours 6 minutes 16 seconds Scope Out: 8:00:06 AM Total Procedure Duration Time 0 hours 13 minutes 4 seconds Findings: The entire examined colon appeared normal on direct and retroflexion views. Impression: - The entire examined colon is normal on direct and retroflexion views. - No specimens collected. Recommendation: - Discharge patient to home. - Resume previous diet. - Continue present medications. - Repeat colonoscopy in 10 years for screening purposes. Procedure Code(s): --- Professional --- 75276, Colonoscopy, flexible; diagnostic, including collection of specimen(s) by brushing or washing, when performed (separate procedure) Diagnosis Code(s): --- Professional --- Z12.11, Encounter for screening for malignant neoplasm of colon CPT copyright 2021 [employer]. All rights reserved. The codes documented in this report are preliminary and upon mixing engineer review may be revised to meet current compliance requirements. Carmine Mac MD 01/03/2025 8:15:22 AM This report has been signed electronically. Number of Addenda: 0 Note Initiated On: 01/03/2025 7:06 AM
--- NOTE | 2025-01-03 08:16 | OP.PROVAT_ITS ---
01/03/2025 Samson Martines Re : Colonoscopy procedure for Olesya Ibarra Dear New This procedure was performed on Friday, January 03, 2025. My impressions and recommendations are as follows: Impressions : - The entire examined colon is normal on direct and retroflexion views. - No specimens collected. Recommendations : - Discharge patient to home. - Resume previous diet. - Continue present medications. - Repeat colonoscopy in 10 years for screening purposes. My findings are described in the full procedure note, which is enclosed. If I can be of further assistance, please feel free to contact me at Doctor phone number(s): , Work: . Sincerely, Carmine Mac MD 01/03/2025 8:15:22 AM This report has been signed electronically.
--- NOTE | 2025-01-03 10:49 | POSTOPAN2_ITS ---
Anesthesia Postop Eval I Sum Postop Eval Completion status Anesthesia document: Postop Eval 1 completed: Yes Anesthesia Postop Eval I Summary Anesthesia Postop Eval I Summary: Anesthesia Postop Eval I: Assessment Summary Airway patent Yes 01/03/25 08:09 DIRECTOR OF ANNUAL GIVING.CSIR Spontaneous unlabored Yes 01/03/25 08:09 DIRECTOR OF ANNUAL GIVING.CSIR respirations Mental status nausea No 01/03/25 08:09 DIRECTOR OF ANNUAL GIVING.CSIR Vomiting No 01/03/25 08:09 DIRECTOR OF ANNUAL GIVING.CSIR Anesthesia Postop Eval I: Fluid Summary Crystalloid volume administer 200 01/03/25 08:09 DIRECTOR OF ANNUAL GIVING.CSIR (ml) Colloids volume administered ( ml) Blood Product volume administered (ml) Total IV fluid infused 200 01/03/25 08:09 DIRECTOR OF ANNUAL GIVING.CSIR Anesthesia Postop Eval I: Summary Notes Anesthesia Complication No 01/03/25 08:09 DIRECTOR OF ANNUAL GIVING.CSIR Anesthesia Complication Comment: Post-operative progress note Anesthesia: Postop Eval II Evaluation Mental status: Awake Pain Level: 0 nausea: No Vomiting: No
--- NOTE | 2025-01-03 10:49 | PCM.POSTANE2 ---
Anesthesia Postop Eval I Sum Postop Eval Completion status Anesthesia document: Postop Eval 1 completed: Yes Anesthesia Postop Eval I Summary Anesthesia Postop Eval I Summary: Anesthesia Postop Eval I: Assessment Summary Airway patent Yes 01/03/25 08:09 SOLUTION SPECIALIST.CSIR Spontaneous unlabored Yes 01/03/25 08:09 SOLUTION SPECIALIST.CSIR respirations Mental status nausea No 01/03/25 08:09 SOLUTION SPECIALIST.CSIR Vomiting No 01/03/25 08:09 SOLUTION SPECIALIST.CSIR Anesthesia Postop Eval I: Fluid Summary Crystalloid volume administer 200 01/03/25 08:09 SOLUTION SPECIALIST.CSIR (ml) Colloids volume administered ( ml) Blood Product volume administered (ml) Total IV fluid infused 200 01/03/25 08:09 SOLUTION SPECIALIST.CSIR Anesthesia Postop Eval I: Summary Notes Anesthesia Complication No 01/03/25 08:09 SOLUTION SPECIALIST.CSIR Anesthesia Complication Comment: Post-operative progress note Anesthesia: Postop Eval II Evaluation Mental status: Awake Pain Level: 0 nausea: No Vomiting: No
== END 2025-01-03 08:44 | disposition home or self-care (01) ==
LOC: EN 06:32 → AC 06:33
PROVIDERS: PCP Nurse Practitioner Family; Referring Provider Surgery; Visit Provider Surgery
PROC: 0DJD8ZZ Inspection of Lower Intestinal Tract, Via Natural or Artificial Opening Endoscopic (ICD-10-PCS; CPT 45378; principal; 2025-01-03 07:25)
DX: Z12.11 Encounter for screening for malignant neoplasm of colon (principal); Z90.49 Acquired absence of other specified parts of digestive tract
CPT/HCPCS: 45378; J2405